=== PATIENT | female | born 2005 | race Caucasian/White ===

== ENCOUNTER 2025-08-12 10:48 | Emergency (ER) | payer OTHER, SELFPAY ==
[2025-08-12 10:51] VITALS: BP 117/80; PULSE 69; PULSE 83; RESP 18; TEMP 36.6; O2SAT 100; BMI 26.7
--- OUTSIDE RECORDS SUMMARY | 2025-08-12 11:40 | XMS RPT_ITS | CCD ---
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 [Mass/Vol] 14.2 g/dL Normal 11.5-15.5 [facility] Comment on above: Order Comment: Speci men Type: BLOOD SPECIMENOrdering Facility: [facility] Address: [address] [place] [address] Performed By: #### 5 8410-2 ####[facility] LABORATORYCLIA [id number] [address] MCH (RBC) [Entitic mass] 28.5 pg Normal 26.0-34.0 [facility] Comment on above: Order Comment: Speci men Type: BLOOD SPECIMENOrdering Facility: [facility] Address: [address] [place] [address] Performed By: #### 5 8410-2 ####[facility] LABORATORYCLIA [id number] [address] MCHC (RBC) [Mass/Vol] 33.3 g/dL Normal 30.5-36.0 [facility] Comment on above: Order Comment: Speci men Type: BLOOD SPECIMENOrdering Facility: [facility] Address: [address] [place] [address] Performed By: #### 5 8410-2 ####[facility] LABORATORYCLIA [id number] [address] MCV (RBC) [Entitic vol] 85.6 fL Normal 80.0-100.0 [facility] Comment on above: Order Comment: Speci men Type: BLOOD SPECIMENOrdering Facility: [facility] Address: [address] [place] [address] Performed By: #### 5 8410-2 ####[facility] LABORATORYCLIA [id number] [address] Nucleated RBC (Bld) [#/Vol] 10*3/uL Normal <0.01 [facility] Comment on above: Order Comment: Speci men Type: BLOOD SPECIMENOrdering Facility: [facility] Address: [address] [place] [address] Performed By: #### 5 8410-2 ####[facility] LABORATORYCLIA [id number] [address] [place] Platelet mean volume (Bld) [Entitic vol] 11.7 fL Normal 9.0-12.7 [facility] Comment on above: Order Comment: Speci men Type: BLOOD SPECIMENOrdering Facility: [facility] Address: [address] [place] [id number] Performed By: #### 5 8410-2 ####[facility] LABORATORYCLIA [id number] [address] [place] Platelets (Bld) [#/Vol] 217 10*3/uL Normal 150-400 [facility] Comment on above: Order Comment: Speci men Type: BLOOD SPECIMENOrdering Facility: [facility] Address: [address] [place] [address] Performed By: #### 5 8410-2 ####[facility] LABORATORYCLIA [id number] [address] [place] RBC (Bld) [#/Vol] 4.99 10*6/uL Normal 3.90-5.20 [facility] Comment on above: Order Comment: Speci men Type: BLOOD SPECIMENOrdering Facility: [facility] Address: [address] [place] [id number] Performed By: #### 5 8410-2 ####[facility] LABORATORYCLIA [id number] [address] WBC (Bld) [#/Vol] 5.28 10*3/uL Normal 3.70-11.00 [facility] Comment on above: Order Comment: Speci men Type: BLOOD SPECIMENOrdering Facility: [facility] Address: [address] [place] [address] Performed By: #### 5 8410-2 ####[facility] LABORATORYCLIA [id number] [address] CNOVon 05-18-2025 CNOV Office Visit (FAMJIMMIE ) ----- EMILY GONSALEZ ([id number]) 5 F Date Time Provider Department 05/18/25 7:40 AM LASHA WITT During your visit today, we recorded the following information about you: Pulse Respiration Blood pressure Weight 58/minute 16/minute 108/70 63.5 kg Height 1.651 m Lasha Witt MD 05/18/2025 8:21 AM Signed ASSESSMENT AND PLAN: Problem List Items Addressed This Visit Psychiatry Anxiety and depression Overview Patient to schedule appointment for CBT. Continue Prozac 10 mg daily. Discussed supportive care including diet, exercise, and sufficient sleep. Relevant Orders COMPLETE BLOOD COUNT COMPREHENSIVE METABOLIC PANEL Other Visit Diagnoses Annual physical exam - Primary Relevant Orders COMPLETE BLOOD COUNT COMPREHENSIVE METABOLIC PANEL LIPID PANEL, FASTING FERRITIN Screening for endocrine, nutritional, metabolic and immunity disorder Relevant Orders COMPLETE BLOOD COUNT COMPREHENSIVE METABOLIC PANEL LIPID PANEL, FASTING FERRITIN Acne vulgaris Relevant Medications clindamycin (CLEOCIN-T) 1 % gel Discussed BP goal <130/80. Encouraged diet rich in vegetables and 150 minutes of moderate intensity activity weekly. Encouraged regular dental visits. Encouraged regular seatbelt use. Encouraged safe sex practices. Reviewed age and season appropriate vaccines. Reviewed cancer screening recommendations. Questions and concerns addressed in office. Medications were reviewed and verified. AVS provided. 05/11/2025 05/18/2025 INTAKE PAIN ASSESSMENT Are you having pain associated with your visit today? No No If pain assessment is 0, no action needed. If pain assessment is positive, please see assessment and plain. FOLLOW UP: Return in about 5 months (around 10/18/2025) for Recheck mental health. SUBJECTIVE: Emily Gonsalez is a 20 year old female presenting in the office today. CC: Patient presents with: Wellness: Pt presents for Annual Wellness Visit , pt is fasting for labs. Diet: generally healthy; eating out 2/week; denies any EtOH use Exercise: training daily (cardiovascular and resistance) Sleep: ~8 hours Dental Exam: biannually Eye Exam: [place] Cancer Screening Breast: NA. Cervical: NA. Colon: NA. Lung: NA. Immunization Influenza: Recommend during respiratory season. Pneumococcal: NA SARS-CoV 2: Recommend during respiratory season. Tdap/Td: Up To Date. HPV: Up To Date. Doing well with fluoxetine. Feeling feelings. Has a support system in mother and team members. PHYSICAL EXAMINATION: BP 108/70 Pulse 58 Resp 16 Ht 5' 5 (1.65m) Wt 140 lb (63.5kg) SpO2 100% BMI 23.30 kg/(m2). Physical Exam Vitals reviewed. Constitutional: Appearance: Normal appearance. HENT: Head: Normocephalic and atraumatic. Right Ear: Tympanic membrane and ear canal normal. Left Ear: Tympanic membrane and ear canal normal. Mouth/Throat: Mouth: Mucous membranes are moist. Pharynx: Oropharynx is clear. Eyes: Extraocular Movements: Extraocular movements intact. Pupils: Pupils are equal, round, and reactive to light. Cardiovascular: Rate and Rhythm: Normal rate. Pulmonary: Effort: Pulmonary effort is normal. Breath sounds: Normal breath sounds. Abdominal: General: Bowel sounds are normal. Palpations: Abdomen is soft. Musculoskeletal: Right lower leg: No edema. Left lower leg: No edema. Skin: Findings: Rash (facial acne) present. Neurological: Mental Status: She is alert and oriented to person, place, and time. Psychiatric: Mood and Affect: Mood normal. Speech: Speech normal. Behavior: Behavior normal. Lasha Witt MD 05/18/2025 8:20 AM Signed MEDITERRANEAN DIET The Mediterranean diet is inspired by foods eaten in countries that border the [place] Sea. This includes [place], [place], [place], and [place]. The Mediterranean diet is similar to other heart-healthy diets. It promotes foods such as fish, fruits, vegetables, beans, and whole grains. It does not include many meats, dairy products, or sweets. In other ways, the Mediterranean diet is different. For example, it allows for more calories from fats, like olive oil. The diet also allows for moderate intake of wine. Path to improved health Studies show that the Mediterranean diet has many health benefits. These are greater when combined with exercise. The diet can help you lose or maintain weight. It also helps to manage your blood pressure, blood sugar, and cholesterol levels. In older adults, it can improve your brain function. Following the Mediterranean diet may also protect against some chronic diseases, such as: -heart disease -cancer -type 2 diabetes -Alzheimer?s disease -Parkinson?s disease You can integrate the Mediterranean diet into your lifestyle. Try some of the tips below. Talk to your doctor or a diet (more content not included)... Normal [facility] Comprehensive metabolic 2000 panelon 05-18-2025 Albumin [Mass/Vol] 4.2 g/dL 3.2 - 5.0 g/dL [facility] ALP [Catalytic activity/Vol] 63 U/L 45 - 117 U/L [facility] ALT [Catalytic activity/Vol] 17 U/L 13 - 61 U/L [facility] Comment on above: Results may be false ly depressed after the administration of Sulfasalazine and/or Sulfapyridine. Anion gap [Moles/Vol] 6 mmol/L 5 - 16 mmol/L [facility] AST [Catalytic activity/Vol] 20 U/L 8 - 34 U/L [facility] Comment on above: Results may be false ly depressed after the administration of Sulfasalazine and/or Sulfapyridine. Bilirubin [Mass/Vol] 0.4 mg/dL 0.2 - 1.0 mg/dL [facility] Calcium [Mass/Vol] 9.2 mg/dL 8.5 - 10. 5 mg/dL [facility] Chloride [Moles/Vol] 106 mmol/L 98 - 107 mmol/L [facility] CO2 [Moles/Vol] 28 mmol/L 21 - 32 mmol/L [facility] Creatinine [Mass/Vol] 0.72 mg/dL 0.51 - 0.95 mg/dL [facility] Comment on above: Patients receiving e ither N-Acetylcysteine (NAC) or Metamizole prior to venipuncture, may have falsely depressed results. GFR/1.73 sq M.predicted among non-blacks MDRD (S/P/Bld) [Vol rate/Area] 123 mL/min/{1.73_m2} - PINF [facility] Comment on above: Estimated Glomerular Filtration Rate (eGFR) is calculated using the 2020 CKD-EPI creatinine equation. This equation utilizes serum creatinine, sex, and age as parameters. The creatinine assay has traceable calibration to isotope dilution-mass spectrometry. Refer to KDIGO guidelines for clinical interpretation. In patients with unstable renal function, e.g. those with acute kidney injury, the eGFR may not accurately reflect actual GFR. Glucose [Mass/Vol] 100 mg/dL 70 - 100 mg/dL [facility] Comment on above: The [place] Diabete s Association (ADA) provides guidance for cutoff values for fasting glucose and random glucose. The ADA defines fasting as no caloric intake for at least 8 hours. Fasting plasma glucose results between 100 to 125 mg/dL indicate increased risk for diabetes (prediabetes). Fasting plasma glucose results greater than or equal to 126 mg/dL meet the criteria for diagnosis of diabetes. In the absence of unequivocal hyperglycemia, results should be confirmed by repeat testing. In a patient with classic symptoms of hyperglycemia or hyperglycemic crisis, random plasma glucose results greater than or equal to 200 mg/dL meet the criteria for diagnosis of diabetes. Reference: Standards of Medical Care in Diabetes 2016, Italian Diabetes Association. Diabetes Care. 2016.39(Suppl 1). Results may be falsely elevated after the administration of Sulfapyridine. Results may be falsely depressed after the administration of Sulfasalazine. Potassium [Moles/Vol] 4.3 mmol/L 3.5 - 5.1 mmol/L [facility] Protein [Mass/Vol] 6.7 g/dL 6.0 - 8.5 g/dL [facility] Sodium [Moles/Vol] 140 mmol/L 136 - 145 mmol/L [facility] Urea nitrogen [Mass/Vol] 10 mg/dL 7 - 26 mg/dL [facility] Albumin [Mass/Vol] 4.2 g/dL Normal 3.2-5.0 [facility] Comment on above: Order Comment: Speci men Type: BLOOD SPECIMENOrdering Facility: [facility] Address: [address] [place] [address] Performed By: #### 2 4323-8, 6-, 13955-0 ####[facility] LABORATORYCLIA [id number] [place] [address] [place] ALP [Catalytic activity/Vol] 63 U/L Normal 45-117 [facility] Comment on above: Order Comment: Speci men Type: BLOOD SPECIMENOrdering Facility: [facility] Address: [address] [place] [address] Performed By: #### 2 4323-8, 2276-4, 13271-5 ####[facility] LABORATORYCLIA [id number] [place] [address] [place] ALT [Catalytic activity/Vol] 17 U/L Normal 13-61 [facility] Comment on above: Order Comment: Specmarianne marie Type: BLOOD SPECIMENOrdering Facility: [facility] Address: [address] [place] [address] Result Comment: Resu lts may be falsely depressed after the administration of Sulfasalazine and/or Sulfapyridine. Performed By: #### 2 4323-8, 2276-4, 76940-9 ####[facility] LABORATORYCLIA [id number] [address] [place] Anion gap [Moles/Vol] 6 mmol/L Normal 5-16 [facility] Comment on above: Order Comment: Markus marie Type: BLOOD SPECIMENOrdering Facility: [facility] Address: [address] [place] [address] Performed By: #### 2 4323-8, 2276-4, 58213-3 ####[facility] LABORATORYCLIA [id number] [address] AST [Catalytic activity/Vol] 20 U/L Normal 8-34 [facility] Comment on above: Order Comment: Markus marie Type: BLOOD SPECIMENOrdering Facility: [facility] Address: [address] [place] [address] Result Comment: Resu lts may be falsely depressed after the administration of Sulfasalazine and/or Sulfapyridine. Performed By: #### 2 4323-8, 2276-4, 32402-0 ####[facility] LABORATORYCLIA [id number] [place] [address] [place] Bilirubin [Mass/Vol] 0.4 mg/dL Normal 0.2-1.0 [facility] Comment on above: Order Comment: Markus marie Type: BLOOD SPECIMENOrdering Facility: [facility] Address: [address] [place] [address] Performed By: #### 2 4323-8, 2276-4, 78654-3 ####[facility] LABORATORYCLIA [id number] [place] [id number] [place] Calcium [Mass/Vol] 9.2 mg/dL Normal 8.5-10.5 [facility] Comment on above: Order Comment: Speci men Type: BLOOD SPECIMENOrdering Facility: [facility] Address: [address] [place] [address] Performed By: #### 2 4323-8, 6-4, 07050-8 ####[facility] LABORATORYCLIA [id number] [place] [address] [place] Chloride [Moles/Vol] 106 mmol/L Normal 98-107 [facility] Comment on above: Order Comment: Speci men Type: BLOOD SPECIMENOrdering Facility: [facility] Address: [address] [place] [address] Performed By: #### 2 4323-8, 2276-01, 19335-7 ####[facility] LABORATORYCLIA [id number] [place] [address] [place] CO2 [Moles/Vol] 28 mmol/L Normal 21-32 [facility] Comment on above: Order Comment: Speci men Type: BLOOD SPECIMENOrdering Facility: [facility] Address: [address] [place] [address] Performed By: #### 2 4323-8, 2276-01, 29355-3 ####[facility] LABORATORYCLIA [id number] [place] [address] [place] Creatinine [Mass/Vol] 0.72 mg/dL Normal 0.51-0.95 [facility] Comment on above: Order Comment: Speci men Type: BLOOD SPECIMENOrdering Facility: [facility] Address: [address] [place] [address] Result Comment: Linda ents receiving either N-Acetylcysteine (NAC) or Metamizole prior to venipuncture, may have falsely depressed results. Performed By: #### 2 4323-8, 2275-4, 13657-4 ####[facility] LABORATORYCLIA [id number] [place] [address] [place] eGFRcr SerPlBld CKD-EPI 2020 123 mL/min/1.73m??? Normal >=60 [facility] Comment on above: Order Comment: Markus marie Type: BLOOD SPECIMENOrdering Facility: [facility] Address: [address] [place] [address] Result Comment: Ivy mated Glomerular Filtration Rate (eGFR) is calculated using the 2020 CKD-EPI creatinine equation. This equation utilizes serum creatinine, sex, and age as parameters. The creatinine assay has traceable calibration to isotope dilution-mass spectrometry. Refer to KDIGO guidelines for clinical interpretation. In patients with unstable renal function, e.g. those with acute kidney injury, the eGFR may not accurately reflect actual GFR. Performed By: #### 2 4323-8, 2276-4, 77926-5 ####[facility] LABORATORYCLIA [id number] [place] [address] [place] Glucose [Mass/Vol] 100 mg/dL Normal 70-100 [facility] Comment on above: Order Comment: Markus marie Type: BLOOD SPECIMENOrdering Facility: [facility] Address: [address] [place] [address] Result Comment: The [place] Diabetes Association (ADA) provides guidance for cutoff values for fasting glucose and random glucose. The ADA defines fasting as no caloric intake for at least 8 hours. Fasting plasma glucose results between 100 to 125 mg/dL indicate increased risk for diabetes (prediabetes). Fasting plasma glucose results greater than or equal to 126 mg/dL meet the criteria for diagnosis of diabetes. In the absence of unequivocal hyperglycemia, results should be confirmed by repeat testing. In a patient with classic symptoms of hyperglycemia or hyperglycemic crisis, random plasma glucose results greater than or equal to 200 mg/dL meet the criteria for diagnosis of diabetes. Reference: Standards of Medical Care in Diabetes 2016, [place] Diabetes Association. Diabetes Care. 2016.39(Suppl 1). Results may be falsely elevated after the administration of Sulfapyridine. Results may be falsely depressed after the administration of Sulfasalazine. Performed By: #### 2 4323-8, 2276-4, 87157-8 ####[facility] LABORATORYCLIA [id number] [place] [id number] [place] Potassium [Moles/Vol] 4.3 mmol/L Normal 3.5-5.1 [facility] Comment on above: Order Comment: Speci men Type: BLOOD SPECIMENOrdering Facility: [facility] Address: [address] [place] [id number] Performed By: #### 2 4323-8, 6-4, 92013-0 ####[facility] LABORATORYCLIA [id number] [place] [id number] [place] Protein [Mass/Vol] 6.7 g/dL Normal 6.0-8.5 [facility] Comment on above: Order Comment: Speci men Type: BLOOD SPECIMENOrdering Facility: [facility] Address: [address] [place] [address] [place] [address] Performed By: #### 2 4323-8, 2275-, 48432-7 ####[facility] LABORATORYCLIA [id number] [place] [address] [place] Sodium [Moles/Vol] 140 mmol/L Normal 136-145 [facility] Comment on above: Order Comment: Speci men Type: BLOOD SPECIMENOrdering Facility: [facility] Address: [facility] [place] [address] Performed By: #### 2 4323-8, 2276-01, 42014-9 ####[facility] LABORATORYCLIA [id number] [place] [address] [place] Urea nitrogen [Mass/Vol] 10 mg/dL Normal 7-26 [facility] Comment on above: Order Comment: Speci men Type: BLOOD SPECIMENOrdering Facility: [facility] Address: [address] [place] [address] [place] [id number] Performed By: #### 2 4323-8, 6-, 94407-9 ####[facility] LABORATORYCLIA [id number] [place] [address] [place] FERRITINon 05-18-2025 Ferritin [Mass/Vol] 21.7 ng/mL 8.0 - 307.0 ng/mL [facility] Ferritin SerPl-mCncon 2024 Ferritin [Mass/Vol] 21.7 ng/mL Normal 8.0-307.0 [facility] Comment on above: Order Comment: Speci men Type: BLOOD SPECIMENOrdering Facility: [facility] Address: [address] [place] [address] Performed By: #### 2 4323-8, 2276-4, 98158-3 ####[facility] LABORATORYCLIA [id number] [place] [address] [place] Lipid 1996 panelon 5 Cholesterol [Mass/Vol] 94 mg/dL 0 - 199 mg/dL [facility] Comment on above: <200 mg/dL, Desirabl e 200-239 mg/dL, Borderline high >239 mg/dL, High Cholesterol in HDL [Mass/Vol] 56 mg/dL 40 - PINF mg/dL [facility] Comment on above: 40-59 mg/dL, Accepta ble >59 mg/dL, High: Negative risk factor for coronary heart disease <40 mg/dL, Low: Positive risk factor for coronary heart disease Cholesterol in LDL [Mass/Vol] 28 mg/dL 0 - 129 mg/dL [facility] Comment on above: <100 mg/dL, Optimal 100-129 mg/dL, Near optimal/above optimal 130-159 mg/dL, Borderline high 160-189 mg/dL, High >189 mg/dL, Very high Secondary prevention optimal LDL Cholesterol levels are recommended to be <70 mg/dL LDL cholesterol is calculated using the Moore-NIH equation. Cholesterol in LDL/Cholesterol in HDL [Mass ratio] 0.5 {ratio} NINF - 2.54 [facility] Comment on above: Reference: 1. National Cholesterol Education Program ATP III Guideline At-A-Glance Quick Desk Reference: National Heart, Lung, and Blood [place]. National Institutes of Health. 2001: NIH Publication No. 01-3305. 2. An International Atherosclerosis Society position paper: global recommendations for the management of dyslipidemia: executive summary, Atherosclerosis. 2014: 232(2):410-413. Cut Points from the Lipid Research Clinic's Prevalence Study for ages 20 to 24 years can be located in the following reference: Expert Panel on Integrated Guidelines for Cardiovascular Health and Risk Reduction in Children and Adolescents: National Heart, Lung and Blood [place]. Pediatrics. 2011:128(Suppl 5):U677-718. Cholesterol in VLDL [Mass/Vol] 4 mg/dL NINF - 30 mg/dL [facility] Cholesterol non HDL [Mass/Vol] 38 mg/dL NINF - 130 mg/dL [facility] Comment on above: <130 mg/dL, Optimal 130-159 mg/dL, Near optimal/above optimal 160-189 mg/dL, Borderline high 190-219 mg/dL, High >219 mg/dL, Very high Secondary prevention optimal non HDL Cholesterol levels are recommended to be <100 mg/dL Cholesterol.total/ Cholesterol in HDL [Mass ratio] 1.68 {ratio} NINF - 5.10 [facility] Fasting Time 12 hrs [facility] Interpretation and review of laboratory results Abnormal [facility] Triglyceride [Mass/Vol] 29 mg/dL Low 30 - 149 mg/dL [facility] Comment on above: <150 mg/dL, Normal 150-199 mg/dL, Borderline high 200-499 mg/dL, High >499 mg/dL, Very high Patients receiving either N-Acetylcysteine (NAC) or Metamizole prior to venipuncture, may have falsely depressed results. Cholesterol [Mass/Vol] 94 mg/dL Normal 0-199 [facility] Comment on above: Order Comment: Speci frank Type: BLOOD SPECIMENOrdering Facility: [facility] Address: [address] [place] [address] Result Comment: <200 mg/dL, Desirable 200-239 mg/dL, Borderline high >239 mg/dL, High Performed By: #### 2 4323-8, 2276-4, 84760-9 ####[facility] LABORATORYCLIA [id number] [address] OF [facility] Cholesterol in HDL [Mass/Vol] 56 mg/dL Normal >40 [facility] Comment on above: Order Comment: Markus marie Type: BLOOD SPECIMENOrdering Facility: [facility] Address: [address] [place] [address] Result Comment: 40-5 9 mg/dL, Acceptable >59 mg/dL, High: Negative risk factor for coronary heart disease <40 mg/dL, Low: Positive risk factor for coronary heart disease Performed By: #### 2 4323-8, 2276-4, 06140-3 ####[facility] LABORATORYCLIA [id number] [place] [id number] [place] Cholesterol in LDL [Mass/Vol] 28 mg/dL Normal 0-129 [facility] Comment on above: Order Comment: Markus frank Type: BLOOD SPECIMENOrdering Facility: [facility] Address: [address] [place] [address] Result Comment: <100 mg/dL, Optimal 100-129 mg/dL, Near optimal/above optimal 130-159 mg/dL, Borderline high 160-189 mg/dL, High >189 mg/dL, Very high Secondary prevention optimal LDL Cholesterol levels are recommended to be <70 mg/dL LDL cholesterol is calculated using the Moore-NIH equation. Performed By: #### 2 4323-8, 2276-4, 81079-9 ####[facility] LABORATORYCLIA [id number] [place] [id number] [place] Cholesterol in LDL/Cholesterol in HDL [Mass ratio] 0.50 {ratio} Normal <2.54 [facility] Comment on above: Order Comment: Speci frank Type: BLOOD SPECIMENOrdering Facility: [facility] Address: [address] [place] [address] Result Comment: Triston villegas: 1. National Cholesterol Education Program ATP III Guideline At-A-Glance Quick Desk Reference: National Heart, Lung, and Blood [place]. National Institutes of Health. 2001: NIH Publication No. 01-3305. 2. An International Atherosclerosis Society position paper: global recommendations for the management of dyslipidemia: executive summary, Atherosclerosis. 2014: 232(2):410-413. Cut Points from the Lipid Research Clinic's Prevalence Study for ages 20 to 24 years can be located in the following reference: Expert Panel on Integrated Guidelines for Cardiovascular Health and Risk Reduction in Children and Adolescents: National Heart, Lung and Blood [place]. Pediatrics. 2011:128(Suppl 5):G149-136. Performed By: #### 2 4323-8, 2276-4, 53874-3 ####[facility] LABORATORYCLIA [id number] [place] [id number] [place] Cholesterol in VLDL [Mass/Vol] 4 mg/dL Normal <30 [facility] Comment on above: Order Comment: Speci men Type: BLOOD SPECIMENOrdering Facility: [facility] Address: [address] [place] [address] Performed By: #### 2 4323-8, 2276-01, 84009-5 ####[facility] LABORATORYCLIA [id number] [address] OF [place] Cholesterol non HDL [Mass/Vol] 38 mg/dL Normal <130 [facility] Comment on above: Order Comment: Speci men Type: BLOOD SPECIMENOrdering Facility: [facility] Address: [address] [place] [address] Result Comment: <130 mg/dL, Optimal 130-159 mg/dL, Near optimal/above optimal 160-189 mg/dL, Borderline high 190-219 mg/dL, High >219 mg/dL, Very high Secondary prevention optimal non HDL Cholesterol levels are recommended to be <100 mg/dL Performed By: #### 2 4323-8, 2276-01, 43835-6 ####[facility] LABORATORYCLIA [id number] [address] Cholesterol.total/ Cholesterol in HDL [Mass ratio] 1.68 {ratio} Normal <5.10 [facility] Comment on above: Order Comment: Speci men Type: BLOOD SPECIMENOrdering Facility: [facility] Address: [address] [place] [address] Performed By: #### 2 4323-8, 2276-01, 69270-1 ####[facility] LABORATORYCLIA [id number] [address] OF [place] FASTING TIME 12 hrs Normal [facility] Comment on above: Order Comment: Speci men Type: BLOOD SPECIMENOrdering Facility: [facility] Address: [address] [place] [address] Performed By: #### 2 4323-8, 2276-01, 47403-2 ####[facility] LABORATORYCLIA [id number] [place] [id number] [place] Triglyceride [Mass/Vol] 29 mg/dL Low 30-149 [facility] Comment on above: Order Comment: Speci men Type: BLOOD SPECIMENOrdering Facility: [facility] Address: [address], [place] [address] Result Comment: <150 mg/dL, Normal 150-199 mg/dL, Borderline high 200-499 mg/dL, High >499 mg/dL, Very high Patients receiving either N-Acetylcysteine (NAC) or Metamizole prior to venipuncture, may have falsely depressed results. Performed By: #### 2 4323-8, 2276-4, 23341-3 ####[facility] LABORATORYCLIA [id number] [address] [place] No Panel Informationon 05-18 Interpretation and review of laboratory results Normal [facility] CNOVon 03-02-2025 CNOV Office Visit (FAMLAK ) ----- EMILY GONSALEZ ([id number]) 5 F Date Time Provider Department 03/02/25 9:20 AM LASHA WITT During your visit today, we recorded the following information about you: Pulse Respiration Blood pressure Weight 68/minute 18/minute 108/70 65.8 kg Lasha Witt MD 03/02/2025 10:01 AM Signed ASSESSMENT AND PLAN: Problem List Items Addressed This Visit Psychiatry Anxiety and depression - Primary Overview Patient to schedule appointment for CBT. Continue Prozac 10 mg daily. Discussed supportive care including diet, exercise, and sufficient sleep. Relevant Medications FLUoxetine (PROZAC) 10 mg capsule Questions and concerns addressed in office. AVS provided. FOLLOW UP: Return in about 8 weeks (around 04/27/2025) for Annual Physical. SUBJECTIVE: Emily Aníbal Elvis is a 20 year old female presenting in the office today. CC: Patient presents with: Depression Anxiety: Pt presents for 3 Month F/U on Anxiety and Depression. Medications were reviewed and verified. 02/23/2025 03/02/2025 INTAKE PAIN ASSESSMENT Are you having pain associated with your visit today? No No If pain assessment is 0, no action needed. If pain assessment is positive, please see assessment and plain. HPI: White female with CMHx of anxiety and depression presents for follow up. Finished the spring and taking one class in the evening. Exercising daily, lifting and running. Sleeping well; getting 8-9 hours of sleep. Appreciating benefit from Prozac. If she forgets medication for multiple days, appreciates feeling bummed and down. Headaches have improved. Denies any recent head injuries. 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 PHYSICAL EXAMINATION: BP 108/70 Pulse 68 Resp 18 Wt 145 lb (65.8kg) SpO2 98% Physical Exam Vitals reviewed. Constitutional: Appearance: Normal appearance. HENT: Head: Normocephalic and atraumatic. Cardiovascular: Rate and Rhythm: Normal rate. Pulmonary: Effort: Pulmonary effort is normal. Breath sounds: Normal breath sounds. Neurological: Mental Status: She is alert. Psychiatric: Mood and Affect: Mood normal. Speech: Speech normal. Behavior: Behavior normal. Allergies As of Date: 03/02/2025 (No Known Allergies) Date Reviewed: 03/02/2025 Reviewed by: Lindsay Mills LPN - Fully Assessed Reason for Visit: Depression [32] Anxiety [9] Cmt: Pt presents for 3 Month F/U on Anxiety and Depression. Primary Visit Diagnosis:Anxiety and depression [F41.9, F32.A] Order(s):FLUoxetine (PROZAC) 10 mg capsuleTake 1 capsule by mouth daily with breakfast.Disp: 90 capsuleRfl: 1 Prescriptions as of 03/02/2025 - FLUoxetine (PROZAC) 10 mg capsule Take 1 capsule by mouth daily with breakfast. - etonogestrel (NEXPLANON) subdermal implant 68 mg Inject 68 mg subcutaneously one time only. Problem List As Of Date 03/02/[address]on in [address] [Z97.5] 04/12/2024 Anxiety and depression [F41.9, F32.A] 09/20/2024 Post-concussion headache [G44.309] 10/16/2024 Dizziness [R42] 10/16/2024 Prescriptions ordered this encounter Disp Refills Start End FLUOXETINE 10 MG CAPSULE 90 c* 1 03/02/2025 Route: ORAL Sig: Take 1 capsule by mouth daily with breakfast. Medications Discontinued During This Encounter Prescriptions - amantadine HCl (SYMMETREL) 100 mg capsule (Discontinued) Reported on 03/02/2025 - rizatriptan (MAXALT) 10 mg tablet (Discontinued) Reported on 03/02/2025 - FLUoxetine (PROZAC) 10 mg capsule (Discontinued) Take 1 capsule by mouth daily with breakfast. Level of Service: OFFICE/OUTPATIENT ESTABLISHED LOW MDM 20 MIN [57366] Disposition: Return in about 8 weeks (around 04/27/2025) for Annual Physical. Follow-up and Disposition History for Encounter Date Provider Department Center 03/02/2025 [id number], LILLY [facility] Encounter Status:Closed by LASHA WITT on 03/02/25 [facility] Progress Noteon 03-02-2025 [employer] Authentication Interface Message Text Emily Gonsalez is a 20 y.o. female patient. Nexplanon Removal w/Insertion Performed by: Jaziel Conway APRN-CNP Authorized by: Jaziel Conway APRN-CNP These two point patient identifiers, Patient Name and Patient Birthday were used to identify the patient prior to obtaining consent and beginning the procedure.Consent was discussed and obtained from Patient. Nexplanon is present in patient's left arm. The patient was supine on the exam table with the left arm externally rotated, abducted to 90 degrees, and flexed at the elbow. Nexplanon was palpated and the distal end was marked with a skin marker. 3ml of 1% lidocaine just deep to the implant at the incision site. Proximal pressure was applied to the implant for stabilization. A 2mm incision was made starting at the distal tip and directed toward the elbow. The tip of the implant was visible at the incision site The encapsulating tissue was incised. The area was cleaned, a steri-strip placed, and a pressure dressing applied. For Reinsertion into the same arm/same location: The transparent cap was removed from the insertion device and the white implant was seen inside the needle. The skin at the insertion site was stretched laterally with the thumb and the index finger. The needle was introduced into the skin at a 30 degree angle, through the same incision used for removal, and then lowered to a horizontal position. With the skin tented, the needle was inserted to its full length. The purple slider was unlocked and moved backward until it stopped. The insertion device was removed. Nexplanon was palpated by the patient and provider after insertion. The area was cleaned, a steri-strip placed, and a pressure dressing applied. Patient's response to procedure: well tolerated. Comments: Removed with fingertips Electronically signed by: Jaziel Conway APRN-ANTHONY [facility] ED Note-Physicianon 01-02-20 ED Note-Physician I received a phone c all from Marika Gonsalez, who identified herself as a certified nurse practitioner and stated she is the primary care provider for Emily Gonsalez. She requested medical records for recent visits during which the patient was seen. It was noted that Marika and Emily Gonsalez share the same last name, suggesting a potential family relation. Marika explained that Emily had told her that the ER was experiencing downtime during her visit, and she had been informed she would be contacted with results. However, she had not received any notification and, when Emily called earlier, was told she would need to speak with medical records. Marika requested the patient's chart information. Given that Emily is an adult and shares the same last name as Marika, I asked if I could speak with either the patient or a parent to confirm that Marika was authorized to receive the information. Marika clarified that she was not Emily's primary care provider but worked in the same field?family practice. She does not work at the same office as Emily?s primary care provider. I requested that Emily contact me directly so I could release the information to her. Marika agreed to reach out to the patient. Later, Emily contacted me and was able to provide her date of , visit details, and the complaint for which she was seen. She confirmed the healthcare provider was a female nurse practitioner, which was verified by reviewing the chart. At that point, I was able to release the requested information to Emily. All questions were answered Electronically signed by Nba WRIGHT Kaleb MCNULTY 01/01/25 12:43 EDT Normal [facility] COV19 Rapidon 12-31-2024 LAB ONLY Result Called? No Normal [facility] Comment on above: Performed By: #### C [id number] ####[facility] [place] [address] Reason for Rapid Test COVID Exposure Normal [facility] Comment on above: Performed By: #### C [id number] ####[place] [address] [place] [address] SARS-CoV-2 (COVID-19) RNA ISIDRA+probe Ql (Unsp spec) Negative Normal Negative [facility] Comment on above: Result Comment: This test is for the detection of SARS-CoV-2 RNA. Positive results are indicative of active infection with SARS-CoV-2. Positive results do not rule out bacterial infection or co-infection with other viruses. Negative results should be treated as presumptive and, if inconsistent with clinical signs and symptoms or necessary for patient management, should be tested with an alternative molecular assay.Negative results do not preclude SARS-CoV-2 infection and should not be used as the sole basis for treatment or other patient management decisions. Clinical correlation with patient history and other diagnostic information is necessary to determine patient infection status. ID NOW COVID-19 2.0 assay performed on the ID NOW Instrument is a rapid molecular in vitro diagnostic test utilizing an isothermal nucleic acid amplification technology (NAAT) intended for the qualitative detection of nucleic acid from SARS-CoV-2 in direct anterior nasal (nasal) or nasopharyngeal swab specimens from individuals with signs and symptoms of respiratory tract infection. Performed By: #### C D:[id number] ####[place] [place] [address] ED Clinical Summaryon 2024 ED Clinical Summary [address] [address] ED Clinical Summary Person Information Name: Emily Gonsalez [place] Age: 19 Years : 2005 Sex: Female PCP: Marital Status: Single Phone: Race: White Ethnicity: Not or Language: Bulgarian Visit Reason: Headache; Nausea; Nausea Acuity: 3 Enc Type: Emergency Med Service: Emergency Medicine Arrival: 12/30/2024 19:55:41 Discharge: 12/31/2024 07:10:00 LOS: 000 11:15 Checkin: 12/30/2024 19:55:41 Checkout: 12/31/2024 07:10:00 Dispo Type: Home or Self Care Address: [address] [place] [id number] Provider Notes: Diagnosis: 1:Concussion; 2:Post-concussion headache Problems No Problems Documented Smoking Status: Smoking Status Never (less than 100 in lifetime) Functional Status: Sensory Deficits: History of Falls: Mobility Assistance Prior to Admission: ADLs: Current Level of Assistance for Self-Care/Mobility: Cognitive Status: Allergies No Known Medication Allergies Laboratory or Other Results This Visit (last charted value for your 12/30/2024 visit) Hematology 12/30/2024 9:28 PM WBC: 12.6 x10 RBC: 4.88 x10 Neutro Auto: 74.2 % -- Normal range between ( 45.6 and 68.4 ) Lymph Auto: 14.3 % -- Normal range between ( 28.0 and 42.0 ) [place] Auto: 11.1 % -- Normal range between ( 3.7 and 11.9 ) Eos Auto: 0.2 % -- Normal range between ( 0.0 and 5.4 ) Basophil Auto: 0.2 % -- Normal range between ( 0.0 and 1.5 ) Baso Absolute: 0.0 x10 MCV: 84.1 fL -- Normal range between ( 80.0 and 100.0 ) MCHC: 33.6 % -- Normal range between ( 31.0 and 37.0 ) Lymph Absolute: 1.8 x10 Hct: 41.1 % -- Normal range between ( 36.0 and 46.0 ) [place] Absolute: 1.4 x10 MCH: 28.2 pg -- Normal range between ( 27.0 and 35.0 ) Neutro Absolute: 9.3 x10 Hgb: 13.8 g/dL -- Normal range between ( 12.0 and 16.0 ) Mean Platelet Volume: 10.1 fL -- Normal range between ( 6.7 and 10.6 ) Platelet: 210 x10 Eos Absolute: 0.0 x10 RDW: 12.9 % -- Normal range between ( 11.6 and 14.8 ) Urinalysis 12/30/2024 9:28 PM UA Color: Light-Yellow UA Urobilinogen: Normal mg/dL UA Bili: Negative UA Ketones: Negative mg/dL UA Leukocyte Esterase: Negative UA Nitrite: Negative UA Glucose: Normal mg/dL UA Bacteria: Present /HPF UA Protein: Negative mg/dL UA Blood: Trace UA Spec Grav: 1.019 -- Normal range between ( 1.003 and 1.035 ) UA pH: 7.0 UA Clarity: Clear UA Source: Clean Catch UA Mucus: Present /LPF UA WBC Quant: 1 /HPF -- Normal range between ( 0 and 5 ) UA RBC Quant: 4 /HPF -- Normal range between ( 0 and 5 ) UA Squepi Cells Quant: 1 /HPF -- Normal range between ( 0 and 29 ) Chemistry 12/30/2024 9:28 PM Creatinine Lvl: 0.68 mg/dL -- Normal range between ( 0.44 and 1.03 ) BUN: 8 mg/dL -- Normal range between ( 8 and 26 ) Glucose Lvl: 101 mg/dL -- Normal range between ( 70 and 99 ) Potassium Lvl: 3.5 mmol/L -- Normal range between ( 3.4 and 4.8 ) Sodium Lvl: 134 mmol/L -- Normal range between ( 133 and 142 ) Calcium Lvl: 9.0 mg/dL -- Normal range between ( 8.5 and 10.3 ) Chloride: 105 mmol/L -- Normal range between ( 98 and 110 ) CO2: 24 mmol/L -- Normal range between ( 22 and 32 ) Anion Gap: 5 -- Normal range between ( 4 and 12 ) Estimated GFR: >60 mL/min/1.73m? BUN Crea Ratio: 11.8 -- Normal range between ( 10.0 and 20.0 ) Urine Preg: Negative Molecular 12/30/2024 9:28 PM SARS-CoV-2 RNA Detection: Negative Flu A Viral RNA: Negative Flu B Viral RNA: Negative Measurements: Height: Weight: 65.9 kg Blood Pressure: /81 mmHg BMI: Procedures No Procedures Documented Immunizations No Immunizations Documented This Visit Final Med List: Medications that have not changed Other Medications FLUoxetine (FLUoxetine 10 mg oral capsule) 1 Capsules Oral (given by mouth) every day. Last Dose: Other Medications FLUoxetine (FLUoxetine 10 mg oral capsule) 1 Capsules Oral (given by mouth) every day. Care Team Members: Attending Physician: Karoline Singh Consulting Physician: Referring Physician: Provider Role Assigned Unassigned Karoline Singh ED MidLevel 12/30/2024 21:13:24 Genesis Hanson ED Nurse 12/30/2024 21:46:09 Follow up: Discharge Orders: Discharge Patient 12/31/24 3:43:00 EDT, Discharge to Home, Self Patient Education Information: [facility] Poison Help line: . [facility] Hotline: [place] Tobacco Quit Line: [place], [place]) [address]: [phone] [place], [place]) [address]: [phone] [facility] [address] [place], [place]: [phone] Normal [facility] Flu A/B RNA Rapidon 01-01-20 Flu A Viral RNA Negative Normal Negative [facility] Comment on above: Performed By: #### C [id number] ####[address] [address] Flu B Viral RNA Negative Normal Negative [facility] Comment on above: Performed By: #### C [id number] ####[address] [address] .UA Microscp Aon 12-30-2024 UA Bacteria Present Abnormal Absent [facility] Comment on above: Performed By: #### . Urinalysis Microscopic Auto ####[address] [address] UA Mucus Present Normal Absent [facility] Comment on above: Performed By: #### . Urinalysis Microscopic Auto ####[address] [place] [address] UA RBC Quant 4 /HPF Normal 0-5 [facility] Comment on above: Performed By: #### . Urinalysis Microscopic Auto ####[address] [place] [address] UA Squepi Cells Quant 1 /HPF Normal 0-29 [facility] Comment on above: Performed By: #### . Urinalysis Microscopic Auto ####[address] [place] [address] UA WBC Quant 1 /HPF Normal 0-5 [facility] Comment on above: Performed By: #### . Urinalysis Microscopic Auto ####[address] [address] .eGFRon 12-30-2024 GFR/1.73 sq M.predicted MDRD (S/P/Bld) [Vol rate/Area] mL/min/{1.73_m2} Normal >=60 [facility] Comment on above: Result Comment: [facility] have implemented the eGFR calculation approach that does not have a coefficient for race and that conforms to the NKF-ASN Task Force Recommendations. Stages of Chronic Kidney Disease GFR Stage 3a Mild to moderate loss of kidney function 59 to 45 Stage 3b Moderate to severe loss of kidney function 44 to 33 Stage 4 Severe loss of kidney function 29 to 15 Stage 5 Kidney failure Less than 15 GFR calculated using the CKD-Epi Creatinine Equation (2020): eGFR = 142 X min(SCr/?, 1)? X max(SCr /?, 1)-1.200 X 0.9938Age X 1.012 [if female] Abbreviations/Units: eGFR (estimated glomerular filtration rate) = mL/min/1.73 m2 SCr (standardized serum creatinine) = mg/dL ? = 0.7 (females) or 0.9 (males) ? = -0.241 (females) or -0.302 (males) min = indicates the minimum of SCr/? or 1 max = indicates the maximum of SCr/? or 1 Age = years Performed By: #### E GFR ####[address] [address] Basic Metabolic Profileon Anion gap [Moles/Vol] 5 mmol/L Normal 4-12 [facility] Comment on above: Performed By: #### C [id number] ####[address] [address] Calcium [Mass/Vol] 9.0 mg/dL Normal 8.5-10.3 [facility] Comment on above: Performed By: #### C [id number] ####[address] [address] Chloride [Moles/Vol] 105 mmol/L Normal 98-110 [facility] Comment on above: Performed By: #### C [id number] ####[address] [address] CO2 [Moles/Vol] 24 mmol/L Normal 22-32 [facility] Comment on above: Performed By: #### C [id number] ####[address] [address] Creatinine [Mass/Vol] 0.68 mg/dL Normal 0.44-1.03 [facility] Comment on above: Performed By: #### C [id number] ####[address] [address] Glucose [Mass/Vol] 101 mg/dL High 70-99 [facility] Comment on above: Performed By: #### C [id number] ####[address] [address] Potassium [Moles/Vol] 3.5 mmol/L Normal 3.4-4.8 [facility] Comment on above: Performed By: #### C [id number] ####[address] [address] Sodium [Moles/Vol] 134 mmol/L Normal 133-142 [facility] Comment on above: Performed By: #### C [id number] ####[address] [address] Urea nitrogen [Mass/Vol] 8 mg/dL Normal 8-26 [facility] Comment on above: Performed By: #### C [id number] ####[address] [address] Urea nitrogen/Creatinin e [Mass ratio] 11.8 mg/mg Normal 10.0-20.0 [facility] Comment on above: Performed By: #### C [id number] ####[address] [address] CBC w/ Diffon 12-30-2024 Erythrocyte distribution width (RBC) [Ratio] 12.9 % Normal 11.6-14.8 [facility] Comment on above: Performed By: #### C BC ####[address] [address] Hematocrit (Bld) [Volume fraction] 41.1 % Normal 36.0-46.0 [facility] Comment on above: Performed By: #### C BC ####[address] [address] Hemoglobin (Bld) [Mass/Vol] 13.8 g/dL Normal 12.0-16.0 [facility] Comment on above: Performed By: #### C BC ####[address] [address] MCH (RBC) [Entitic mass] 28.2 pg Normal 27.0-35.0 [facility] Comment on above: Performed By: #### C BC ####[address] [address] MCHC 33.6 % Normal 31.0-37.0 [facility] Comment on above: Performed By: #### C BC ####[address] [address] MCV (RBC) [Entitic vol] 84.1 fL Normal 80.0-100.0 [facility] Comment on above: Performed By: #### C BC ####[address] [address] Platelet 210 x10*3/mcL Normal 150-450 [facility] Comment on above: Performed By: #### C BC ####[address] [address] Platelet mean volume (Bld) [Entitic vol] 10.1 fL Normal 6.7-10.6 [facility] Comment on above: Performed By: #### C BC ####[address] [address] RBC 4.88 x10*6/mcL Normal 3.80-5.20 [facility] Comment on above: Performed By: #### C BC ####[address] [address] WBC 12.6 x10*3/mcL High 4.5-11.0 [facility] Comment on above: Performed By: #### C BC ####[address] [address] [address] Brain w/o Contraston 03-0 CT Brain w/o Contrast EXAMINATION: CT Brain w/o Contrast, CT Facial Bones w/o Contrast HISTORY: Dizziness, COMPARISON: None. TECHNIQUE: Axial CT scans through the head cervical spine and facial bones were obtained without IV contrast administration. Dose reduction techniques were achieved by using: automated exposure control and/or adjustment of mA and /or kV according to patient size and/or use of iterative reconstruction technique. FINDINGS: CT BRAIN There is no evidence of acute intracranial hemorrhage or abnormal extra-axial fluid collection. No mass effect or midline shift is seen. There is no evidence of large acute territorial infarction. There is no hydrocephalus. No definite acute fracture is identified. Soft tissues are unremarkable. CT FACIAL No acute fracture or posttraumatic malalignment. The globes are intact bilaterally. There is no retrobulbar hematoma. The soft tissues are unremarkable. There is near complete opacification of left sphenoid sinus with mucosal thickening and air-fluid level. There are also mucosal thickening of right sphenoid sinus and left ethmoid air cells. Mastoid air cells are clear. IMPRESSION: No CT evidence of acute intracranial abnormality. No acute fracture. Incidental paranasal sinus disease. Recommend clinical correlation for acute sinusitis. Final Dictated by: Yohana Abernathy MD Dictated DT/TM: 12.30.2024 10:53 pm Signed by: Yohana Abernathy MD Signed (Electronic Signature): 12.30.2024 10:59 pm (If Report Is Signed, Electronically Signed in Other Vendor System) Normal [facility] CT Facial Bones w/o Contrast on 12-30-2024 CT Facial Bones w/o Contrast EXAMINATION: CT Brain w/o Contrast, CT Facial Bones w/o Contrast HISTORY: Dizziness, COMPARISON: None. TECHNIQUE: Axial CT scans through the head cervical spine and facial bones were obtained without IV contrast administration. Dose reduction techniques were achieved by using: automated exposure control and/or adjustment of mA and /or kV according to patient size and/or use of iterative reconstruction technique. FINDINGS: CT BRAIN There is no evidence of acute intracranial hemorrhage or abnormal extra-axial fluid collection. No mass effect or midline shift is seen. There is no evidence of large acute territorial infarction. There is no hydrocephalus. No definite acute fracture is identified. Soft tissues are unremarkable. CT FACIAL No acute fracture or posttraumatic malalignment. The globes are intact bilaterally. There is no retrobulbar hematoma. The soft tissues are unremarkable. There is near complete opacification of left sphenoid sinus with mucosal thickening and air-fluid level. There are also mucosal thickening of right sphenoid sinus and left ethmoid air cells. Mastoid air cells are clear. IMPRESSION: No CT evidence of acute intracranial abnormality. No acute fracture. Incidental paranasal sinus disease. Recommend clinical correlation for acute sinusitis. Radiation Dose Estimate: CTDI(mGy):0.352521 / / / kVp:120.574198 / mAs:0.612940 / / / DLP(mGy-cm):5.105501Ucaw Part: Head CTDI(mGy):42.704636 / / / kVp:120.271009 / mAs:171.756982 / / / DLP(mGy-cm):673.962956Kzp y Part: Head CTDI(mGy):18.557783 / / / kVp:120.137032 / mAs:91.683275 / / / DLP(mGy-cm):283.886155Txw y Part: Head Final Dictated by: Yohana Abernathy MD Dictated DT/TM: 12.30.2024 10:53 pm Signed by: Yohana Abernathy MD Signed (Electronic Signature): 12.30.2024 10:59 pm (If Report Is Signed, Electronically Signed in Other Vendor System) Normal [facility] Diff Autoon 12-30-2024 Baso Absolute 0.0 x10*3/mcL Normal 0.0-0.2 [facility] Comment on above: Performed By: #### . Automated Diff ####[address] [address] Basophils/100 WBC (Bld) 0.2 % Normal 0.0-1.5 [facility] Comment on above: Performed By: #### . Automated Diff ####[address] [address] Eos Absolute 0.0 x10*3/mcL Normal 0.0-0.4 [facility] Comment on above: Performed By: #### . Automated Diff ####[address] [address] Eosinophils/100 WBC (Bld) 0.2 % Normal 0.0-5.4 [facility] Comment on above: Performed By: #### . Automated Diff ####[address] [address] Lymph Absolute 1.8 x10*3/mcL Normal 1.2-5.2 [facility] Comment on above: Performed By: #### . Automated Diff ####[address] [address] Lymphocytes/100 WBC (Bld) 14.3 % Low 28.0-42.0 [facility] Comment on above: Performed By: #### . Automated Diff ####[address] [address] [place] Absolute 1.4 x10*3/mcL High 0.1-1.1 [facility] Comment on above: Performed By: #### . Automated Diff ####[address] [address] Monocytes/100 WBC (Bld) 11.1 % Normal 3.7-11.9 [facility] Comment on above: Performed By: #### . Automated Diff ####[address] [address] Neutro Absolute 9.3 x10*3/mcL High 1.8-8.0 [facility] Comment on above: Performed By: #### . Automated Diff ####[address] Neutro Auto 74.2 % High 45.6-68.4 [facility] Comment on above: Performed By: #### . Automated Diff ####[address] ED Note-Physicianon 12-31-19 ED Note-Physician Chief Complaint Patient to ED for increased nausea, and headache. States while playing lacross last week she was hit in the head by another player. History of Present Illness Patient is an alert, oriented 19-year-old female presenting to the emergency department with complaints of headache and nausea. This has been persistent and has progressively increased over the past week. Patient was playing lacrosse last week when she was hit in the head by another player. Patient reports that she is also taking blows to the side of her face. On evaluation PERRLA noted. EOM's grossly intact however she does get increased nausea and dizziness with the movement of her eyes. There is swelling noticed to the left lower jawline, tenderness to palpation to this area. Patient is unable to open jaw very wide. Heart sounds are S1-S2. Lung sounds are clear throughout. She does report that she is followed up with the concussion clinic. Patient has photophobia and phonophobia. I did discuss swabs for flu and COVID, basic labs, saline bolus, and CT scan of the brain and facial bones. Patient is very agreeable with this plan of care. Plan to start patient with dexamethasone, acetaminophen, Zofran, and Benadryl all IV. All orders placed accordingly. Review of Systems As reviewed in the HPI. All other systems reviewed are negative or normal. Physical Exam As dictated in HPI. If not mentioned it is presumed within normal limits. Vitals & Measurements T: 37.7 ?C (Oral) HR: 109 (Peripheral) RR: 18 BP: 134/81 SpO2: 97% HT: 165.1 cm WT: 65.9 kg (Dosing) Additional Vitals No qualifying data available. Procedure No qualifying data available. ASA Documentation Medical Decision Making MEDICAL DECISION MAKING Number and Complexity of Problems Differential Diagnosis: _Including but not limited to concussion, headache, dizziness, nausea, intracranial bleed, jaw fracture Treatment and Disposition ED Course: _ Patient is an alert, oriented 19-year-old female presenting to the emergency department with complaints of headache and nausea. This has been persistent and has progressively increased over the past week. Patient was playing lacrosse last week when she was hit in the head by another player. Patient reports that she is also taking blows to the side of her face. On evaluation PERRLA noted. EOM's grossly intact however she does get increased nausea and dizziness with the movement of her eyes. There is swelling noticed to the left lower jawline, tenderness to palpation to this area. Patient is unable to open jaw very wide. Heart sounds are S1-S2. Lung sounds are clear throughout. She does report that she is followed up with the concussion clinic. Patient has photophobia and phonophobia. I did discuss swabs for flu and COVID, basic labs, saline bolus, and CT scan of the brain and facial bones. Patient is very agreeable with this plan of care. Plan to start patient with dexamethasone, acetaminophen, Zofran, and Benadryl all IV. All orders placed accordingly. Due to downtime, I am unable to review the CT scans. I was able to see scans prior to system going down did not note any obvious abnormalities, bleed, skull fractures, or shifts. I did discuss all of this with patient and patient's visitors. I did explain to them that I am unsure when things will be back up and running however with her feeling better I am okay with discharge home and if there is any abnormalities we will call with those results. I did explain that typically no news is good news. Patient reports symptoms have improved since medications. I recommended continuing follow-up with concussion clinic and avoiding high contact sports and activities until cleared by the concussion clinic. Patient verbalized understanding and is agreeable. Patient was provided with handwritten instructions along with a prescription for Zofran that can be used up to 3 times a day as needed. Patient verbalized understanding had no further questions or concerns. All were agreeable with this plan of care. Shared decision making: _The results of pertinent diagnostic studies and exam findings were discussed. The patient's provisional diagnosis and plan of care were discussed with the patient and present family. The patient and/or present family expressed understanding of the diagnosis and plan. The nurse was instructed to provide written instructions and appropriate follow-up information. The patient understands their need and responsibility to obtain additional follow-up as instructed. The risks of medications administered and prescribed were discussed with the patient and family present. Code status: _Full code Assessment/Plan 1. Concussion 2. Post-concussion headache Refresh vitals and sections below: Problem List/Past Medical History Ongoing No qualifying data Historical No qualifying data Medications Inpatient acetaminophen, 1000 mg= 100 mL, IV Piggyback, Once Benadryl, 50 mg= 1 mL, IV Push, Once dexamethasone, 10 mg= 1 mL, IV P (more content not included)... Normal [facility] UA w Culture if Indon 2024 Color (U) Light-Yellow Normal Yellow [facility] Comment on above: Performed By: #### U CI ####[address] [address] Ketones Ql (U) Negative Normal Negative [facility] Comment on above: Performed By: #### U CI ####[address] [address] UA Blood Trace Abnormal Negative [facility] Comment on above: Performed By: #### U CI ####[address] [address] UA Clarity Clear Normal Clear [facility] Comment on above: Performed By: #### U CI ####[address] [address] UA Glucose Normal Normal Negative [facility] Comment on above: Performed By: #### U CI ####[place] [address] UA Leukocyte Esterase Negative Normal Negative [facility] Comment on above: Performed By: #### U CI ####[place] [address] UA Nitrite Negative Normal Negative [facility] Comment on above: Performed By: #### U CI ####[place] [address] UA pH 7.0 Normal 4.5 - 7.8 [facility] Comment on above: Performed By: #### U CI ####[place] [address] UA Protein Negative Normal Negative [facility] Comment on above: Performed By: #### U CI ####[place] [address] UA Source Clean Catch Normal [facility] Comment on above: Performed By: #### U CI ####[place] [address] UA Spec Grav 1.019 Normal 1.003-1.035 [facility] Comment on above: Performed By: #### U CI ####[place] [address] UA Urobilinogen Normal Normal 0.2 - 1.0 [facility] Comment on above: Performed By: #### U CI ####[place] [address] Urobilinogen (U) [Mass/Vol] Negative Normal Negative [facility] Comment on above: Performed By: #### U CI ####[place] [address] CNTHERAPYon 11-01-2024 CNTHERAPY OT/PT/Speech Visit (PNORCA) ----- EMILY GONSALEZ ([id number]) 5 F Date Time Provider Department 11/01/24 7:15 AM JUDAH CLAY Date Time Provider Department Center 11/01/2024 7:15 AM [id number] Reason for Visit: Physical Therapy [503] PT Discharge [752] Primary Visit Diagnosis:Dizziness [R42] Other Visit Diagnosis:Post-concussion headache [G44.309] Allergies As of Date: 11/01/2024 (No Known Allergies) Date Reviewed: 10/11/2024 Reviewed by: Lindsay Mills LPN - Fully Assessed Prescriptions as of 03/22/2025 - FLUoxetine (PROZAC) 10 mg capsule Take 1 capsule by mouth daily with breakfast. - etonogestrel (NEXPLANON) subdermal implant 68 mg Inject 68 mg subcutaneously one time only. [facility] CNTHERAPYon 10-17-2024 CNTHERAPY OT/PT/Speech Visit (PNORCA) ----- EMILY GONSALEZ ([id number]) 5 F Date Time Provider Department 10/17/24 7:15 AM JUDAH CLAY Date Time Provider Department Center 10/17/2024 7:15 AM [id number] Reason for Visit: Physical Therapy [503] Primary Visit Diagnosis:Dizziness [R42] Other Visit Diagnosis:Post-concussion headache [G44.309] Allergies As of Date: 10/17/2024 (No Known Allergies) Date Reviewed: 10/11/2024 Reviewed by: Lindsay Mills LPN - Fully Assessed Prescriptions as of 10/17/2024 - amantadine HCl (SYMMETREL) 100 mg capsule Take 100 mg by mouth two times a day. - rizatriptan (MAXALT) 10 mg tablet Take 1 tablet (10 mg) by mouth as directed. at onset of headache. May repeat after 2 hours. Do not exceed 30 mg per day. - FLUoxetine (PROZAC) 10 mg capsule Take 1 capsule by mouth daily with breakfast. - etonogestrel (NEXPLANON) subdermal implant 68 mg Inject 68 mg subcutaneously one time only. [employer]: Addendum Therapy (PT/OT/Speech/Resp) ID: [id number] 10/17/2024 7:44 AM Author: JUDAH CLAY Signed by JUDAH CLAY PT, DPT on 10/17/2024 at 7:44 AM * * * This document replaces document [id number] * * * Document text: Program_ID:[id number] Access Code: [email or web address] URL: [email or web address] Date: 10-17-2024 Prepared By: JUDAH CLAY Program Notes Exercises - Standing Shoulder Row with Anchored Resistance - 1 x daily - 7 x weekly - 2 sets - 12-15 reps - Shoulder External Rotation and Scapular Retraction with Resistance - 1 x daily - 7 x weekly - 2 sets - 12-15 reps - Shoulder Horizontal Abduction with Anchored Resistance - 1 x daily - 7 x weekly - 2 sets - 12-15 reps - Seated Gaze Stabilization with Head Nod - 1 x daily - 7 x weekly - 3 sets - reps - Seated Gaze Stabilization with Head Rotation - 1 x daily - 7 x weekly - 3 sets - reps - Seated Cervical Sidebending Stretch - 2 x daily - 7 x weekly - 3 sets - reps - Seated Levator Scapulae Stretch - 2 x daily - 7 x weekly - 3 sets - reps - Standing Isometric Chin Tuck with Manual Resistance at Wall - 2 x daily - 7 x weekly - 1 sets - 10 reps [facility] THERAPY NTon 10-17-2024 THERAPY NT HNO ID: [id number] Author: JUDAH CLAY PT, DPT Service: ? Author Type: Physical Therapist Type: Therapy (PT/OT/Speech/Resp) Filed: 10/17/2024 07:44 Note Text: Program_ID:[id number] Access Code: [email or web address] URL: [email or web address] Date: 10-17-2024 Prepared By: JUDAH CLAY Program Notes Exercises - Standing Shoulder Row with Anchored Resistance - 1 x daily - 7 x weekly - 2 sets - 12-15 reps - Shoulder External Rotation and Scapular Retraction with Resistance - 1 x daily - 7 x weekly - 2 sets - 12-15 reps - Shoulder Horizontal Abduction with Anchored Resistance - 1 x daily - 7 x weekly - 2 sets - 12-15 reps - Seated Gaze Stabilization with Head Nod - 1 x daily - 7 x weekly - 3 sets - reps - Seated Gaze Stabilization with Head Rotation - 1 x daily - 7 x weekly - 3 sets - reps - Seated Cervical Sidebending Stretch - 2 x daily - 7 x weekly - 3 sets - reps - Seated Levator Scapulae Stretch - 2 x daily - 7 x weekly - 3 sets - reps - Standing Isometric Chin Tuck with Manual Resistance at Wall - 2 x daily - 7 x weekly - 1 sets - 10 reps [facility] CNTHERAPYon 10-16-2024 CNTHERAPY OT/PT/Speech Visit (PNORCA) ----- EMILY GONSALEZ ([id number]) 5 F Date Time Provider [facility] [place] 10/16/2024 7:15 AM [id number], YEVG*[facility] Reason for Visit: Physical Therapy [503] Primary Visit Diagnosis:Dizziness [R42] Other Visit Diagnosis:Post-concussion headache [G44.309] Allergies As of Date: 10/16/2024 (No Known Allergies) Date Reviewed: 10/11/2024 Reviewed by: Lindsay Mills LPN - Fully Assessed Prescriptions as of 10/16/2024 - amantadine HCl (SYMMETREL) 100 mg capsule Take 100 mg by mouth two times a day. - rizatriptan (MAXALT) 10 mg tablet Take 1 tablet (10 mg) by mouth as directed. at onset of headache. May repeat after 2 hours. Do not exceed 30 mg per day. - FLUoxetine (PROZAC) 10 mg capsule Take 1 capsule by mouth daily with breakfast. - etonogestrel (NEXPLANON) subdermal implant 68 mg Inject 68 mg subcutaneously one time only. [employer]: Addendum Therapy (PT/OT/Speech/Resp) ID: [id number] 10/16/2024 7:56 AM Author: JUDAH CLAY Signed by JUDAH CLAY PT, DPT on 10/16/2024 at 7:56 AM * * * This document replaces document [id number] * * * Document text: Program_ID:[id number] Access Code: [email or web address] URL: [email or web address] Date: 10-16-2024 Prepared By: JUDAH CLAY Program Notes Exercises - Standing Shoulder Row with Anchored Resistance - 1 x daily - 7 x weekly - 2 sets - 12-15 reps - Shoulder External Rotation and Scapular Retraction with Resistance - 1 x daily - 7 x weekly - 2 sets - 12-15 reps - Shoulder Horizontal Abduction with Anchored Resistance - 1 x daily - 7 x weekly - 2 sets - 12-15 reps - Seated Gaze Stabilization with Head Nod - 1 x daily - 7 x weekly - 3 sets - reps - Seated Gaze Stabilization with Head Rotation - 1 x daily - 7 x weekly - 3 sets - reps [facility] THERAPY NTon 10-16-2024 THERAPY NT HNO ID: [id number] Author: JUDAH CLAY PT, DPT Service: ? Author Type: Physical Therapist Type: Therapy (PT/OT/Speech/Resp) Filed: 10/16/2024 07:56 Note Text: Program_ID:[id number] Access Code: [email or web address] URL: [email or web address]/ Date: 10-16-2024 Prepared By: JUDAH CLAY Program Notes Exercises - Standing Shoulder Row with Anchored Resistance - 1 x daily - 7 x weekly - 2 sets - 12-15 reps - Shoulder External Rotation and Scapular Retraction with Resistance - 1 x daily - 7 x weekly - 2 sets - 12-15 reps - Shoulder Horizontal Abduction with Anchored Resistance - 1 x daily - 7 x weekly - 2 sets - 12-15 reps - Seated Gaze Stabilization with Head Nod - 1 x daily - 7 x weekly - 3 sets - reps - Seated Gaze Stabilization with Head Rotation - 1 x daily - 7 x weekly - 3 sets - reps [facility] CNTHERAPYon 10-13-2024 CNTHERAPY OT/PT/Speech Visit (PNORCA) ----- EMILY GONSALEZ ([id number]) 5 F Date Time Provider Department 10/13/24 10:15 AM JUDAH CLAY Date Time Provider Department Center 10/13/2024 10:15 AM [id number], YEVG*[facility] Reason for Visit: PT Eval [747] Primary Visit Diagnosis:Post-concussion headache [G44.309] Other Visit Diagnosis:Dizziness [R42] Allergies As of Date: 10/13/2024 (No Known Allergies) Date Reviewed: 10/11/2024 Reviewed by: Lindsay Mills LPN - Fully Assessed Prescriptions as of 10/16/2024 - amantadine HCl (SYMMETREL) 100 mg capsule Take 100 mg by mouth two times a day. - rizatriptan (MAXALT) 10 mg tablet Take 1 tablet (10 mg) by mouth as directed. at onset of headache. May repeat after 2 hours. Do not exceed 30 mg per day. - FLUoxetine (PROZAC) 10 mg capsule Take 1 capsule by mouth daily with breakfast. - etonogestrel (NEXPLANON) subdermal implant 68 mg Inject 68 mg subcutaneously one time only. [facility] CNOVon 10-11-2024 OV Office Visit (ULISES ) ----- EMILY GONSALEZ ([id number]) 5 F Date Time Provider Department 10/11/24 10:40 AM LASHA WITT During your visit today, we recorded the following information about you: Pulse Respiration Blood pressure Weight 70/minute 18/minute 104/70 64.4 kg Lasha Witt MD 10/11/2024 11:19 AM Signed ASSESSMENT AND PLAN: Problem List Items Addressed This Visit None Visit Diagnoses Post-concussion headache - Primary Relevant Medications rizatriptan (MAXALT) 10 mg tablet Other Relevant Orders CONSULT TO PHYSICAL THERAPY Advised using OTC Excedrin with caffeine PRN. Encouraged sufficient sleep and regular rise time. Encouraged adequate hydration. Avoid inflammatory foods like sugar. Limit screen time. Discussed slow return to regular activity. Questions and concerns addressed in office. AVS provided. FOLLOW UP: Return if symptoms worsen or fail to improve. SUBJECTIVE: Emily Gonsalez is a 19 year old female presenting in the office today. CC: Patient presents with: Headache: Pt presents for Headaches, pt was playing Lacrosse in mid August and was hit in the head with a ball and had a mild concussion and that is when the headaches started. Pt states the [employer] wanted pt to do eye and ear exercises and when she did that it made it worse. Pt states when she started exercising it was getting worse, pt states her production trainer wanted her to start jogging and so she went 15 min. Came back and passed out. Medications were reviewed and verified. 09/19/2024 10/11/2024 INTAKE PAIN ASSESSMENT Are you having pain associated with your visit today? No Yes, Provider notified If pain assessment is 0, no action needed. If pain assessment is positive, please see assessment and plain. HPI: White female presents with complaints of band/tension like headache since August 30, 2024 following a concussion while playing lacrosse. Returned to game though did not participate in any practices or games following injury. Was given accommodations for classes. Passed her classes. Physical training has been working with patient daily. Sports physician prescribed amantadine and recommended eye and ear exercises. Could not tolerate exercises due to dizziness. Headaches fluctuate and associated with dizziness. Has been trying Tylenol and ibuprofen. PHYSICAL EXAMINATION: BP 104/70 Pulse 70 Resp 18 Wt 142 lb (64.4kg) SpO2 96% Physical Exam Vitals reviewed. Constitutional: Appearance: Normal appearance. HENT: Head: Normocephalic and atraumatic. Cardiovascular: Rate and Rhythm: Normal rate. Pulmonary: Effort: Pulmonary effort is normal. Breath sounds: Normal breath sounds. Neurological: Mental Status: She is alert. Cranial Nerves: Cranial nerves 2-12 are intact. Coordination: Dncpde-Omvp-Sdxjsy Test and Heel to Christie Test normal. Gait: Gait and tandem walk normal. Psychiatric: Mood and Affect: Mood normal. Speech: Speech normal. Behavior: Behavior normal. Referring Provider: SELF [200] Allergies As of Date: 10/11/2024 (No Known Allergies) Date Reviewed: 10/11/2024 Reviewed by: Lindsay Mills LPN - Fully Assessed Reason for Visit: Headache [52] Cmt: Pt presents for Headaches, pt was playing Lacrosse in mid August and was hit in the head with a ball and had a mild concussion and that is when the headaches started. Pt states the [employer] wanted pt to do eye and ear exercises and when she did that it made it worse. Pt states when she started exercising it was getting worse, pt states her production trainer wanted her to start jogging and so she went 15 min. Came back and passed out. Primary Visit Diagnosis:Post-concussion headache [G44.309] Order(s):rizatriptan (MAXALT) 10 mg tabletTake 1 tablet (10 mg) by mouth as directed. at onset of headache. May repeat after 2 hours. Do not exceed 30 mg per day.Disp: 9 tabletRfl: 3 CONSULT TO PHYSICAL THERAPY [3257] Order #: [id number]: 1 FUTURE Prescriptions as of 10/11/2024 - amantadine HCl (SYMMETREL) 100 mg capsule Take 100 mg by mouth two times a day. - rizatriptan (MAXALT) 10 mg tablet Take 1 tablet (10 mg) by mouth as directed. at onset of headache. May repeat after 2 hours. Do not exceed 30 mg per day. - FLUoxetine (PROZAC) 10 mg capsule Take 1 capsule by mouth daily with breakfast. - etonogestrel (NEXPLANON) subdermal implant 68 mg Inject 68 mg subcutaneously one time only. Problem List As Of Date 10/11/2024 Noted Resolved Nexplanon in place [Z97.5] 04/12/2024 Anxiety and depression [F41.9, F32.A] 09/20/2024 Prescriptions ordered this encounter Disp Refills Start End RIZATRIPTAN 10 MG TABLET 9 ta* 3 10/11/2024 Route: ORAL Sig: Take 1 tablet (10 mg) by mouth as directed. at onset of headache. May repeat after 2 hours. Do not exceed 30 mg per day. Level of Service: OFFICE/OUTP (more content not included)... Normal [facility] COV19 Rapidon 09-03-2024 LAB ONLY Result Called? No Normal [facility] Comment on above: Performed By: #### C D:[id number] ####[id number] [place] [address] Reason for Rapid Test COVID Exposure Normal [facility] Comment on above: Performed By: #### C [id number] ####[id number] [place], [place] [id number] SARS-CoV-2 (COVID-19) RNA ISIDRA+probe Ql (Unsp spec) Negative Normal Negative [facility] Comment on above: Result Comment: The 2019 novel coronavirus SARS-CoV-2 target nucleic acids are not detected. This test is for the detection of SARS-CoV-2 RNA. Positive results are indicative of active infection with SARS-CoV-2. Positive results do not rule out bacterial infection or co-infection with other viruses. Negative results should be treated as presumptive and, if inconsistent with clinical signs and symptoms or necessary for patient management, should be tested with an alternative molecular assay.Negative results do not preclude SARS-CoV-2 infection and should not be used as the sole basis for treatment or other patient management decisions. Clinical correlation with patient history and other diagnostic information is necessary to determine patient infection status. ID NOW COVID-19 2.0 assay performed on the ID NOW Instrument is a rapid molecular in vitro diagnostic test utilizing an isothermal nucleic acid amplification technology (NAAT) intended for the qualitative detection of nucleic acid from SARS-CoV-2 in direct anterior nasal (nasal) or nasopharyngeal swab specimens from individuals with signs and symptoms of respiratory tract infection. Performed By: #### C D:[id number] ####[address] [place] [address] ED Clinical Summaryon 2023 ED Clinical Summary [address] [address] ED Clinical Summary Person Information Name: Emily Gonsalez [facility] Age: 19 Years : 2005 Sex: Female PCP: Marital Status: Single Phone: Race: White Ethnicity: Not or Language: Bulgarian [facility]: [id number] Visit Reason: Headache; Cough; Eye foreign body; Concussion Acuity: 3 Enc Type: Emergency Med Service: Emergency Medicine Arrival: 09/03/2024 16:43:50 Discharge: 09/03/2024 17:58:00 LOS: 000 01:15 Checkin: 09/03/2024 16:43:50 Checkout: 09/03/2024 17:58:00 Dispo Type: Home or Self Care Address: [address] [place] [id number] Provider Notes: Diagnosis: 1:Corneal abrasion; 2:Sinusitis Problems No Problems Documented Smoking Status: Smoking Status Never (less than 100 in lifetime) Functional Status: Sensory Deficits: History of Falls: Mobility Assistance Prior to Admission: ADLs: Current Level of Assistance for Self-Care/Mobility: Cognitive Status: Allergies No Known Medication Allergies Laboratory or Other Results This Visit (last charted value for your 09/03/2024 visit) Molecular 09/03/2024 5:09 PM SARS-CoV-2 RNA Detection: Negative Flu A Viral RNA: Negative Flu B Viral RNA: Negative Measurements: Height: Weight: 63.2 kg Blood Pressure: /97 mmHg BMI: Procedures No Procedures Documented Immunizations No Immunizations Documented This Visit Final Med List: New Medications [facility]/pharmacy #[id number], [address] [place], [place] [id number], [phone] amoxicillin-clavulanate (Augmentin 875 mg-125 mg oral tablet) 1 Tabs Oral (given by mouth) every 12 hours for 14 Days. Refills: 0. Last Dose: erythromycin ophthalmic (erythromycin 0.5% ophthalmic ointment) 1 Application Left eye 4 times a day for 10 Days. Refills: 0. Last Dose: [facility]/pharmacy #[id number], [address] [place], [place] [id number], [phone] amoxicillin-clavulanate (Augmentin 875 mg-125 mg oral tablet) 1 Tabs Oral (given by mouth) every 12 hours for 14 Days. Refills: 0. erythromycin ophthalmic (erythromycin 0.5% ophthalmic ointment) 1 Application Left eye 4 times a day for 10 Days. Refills: 0. Care Team Members: Attending Physician: Karoline Singh Consulting Physician: Referring Physician: Provider Role Assigned Unassigned FairbanksAshuah Horacio ED Nurse 09/03/2024 16:51:22 Karoline Singh ED MidLevel 09/03/2024 16:54:31 Follow up: With: Address: When: Primary care provider Comments: Follow-up with your primary care provider in 3 to 5 days for reevaluation of symptoms as needed. Start taking Augmentin twice a day x 10 days. Apply the erythromycin ointment to the left eye 4 times a day x 10 days. You can take Tylenol and/or ibuprofen as needed for any pain or discomfort. Please return to the emergency department for any new or worsening symptoms. Discharge Orders: Discharge Patient 09/03/24 17:27:00 EST, Discharge to Home, Self Patient Education Information: Erythromycin Ophthalmic Ointment; Amoxicillin/Clavulanate Oral Tablet; Chronic Sinusitis; Causes of Sinusitis [facility] Poison Help line: . [facility] Hotline: [place] Tobacco Quit Line: [place], [place]) [address]: [phone] [place], [place]) [address]: [phone] [facility] [address] [place], [place]: [phone] Normal [facility] ED Note-Physicianon 09-03-20 ED Note-Physician Chief Complaint Patient reports feeling sharp sensation in left eye, patient states getting hit in head two days ago at lacrosse, also has had viral symptoms all week History of Present Illness Patient is an alert, oriented 19-year-old female presenting to the emergency department with complaints of feeling a sharp sensation in her left eye. Patient reports that she did get hit head a couple days ago during a lacrosse game and has had viral symptoms all week. Viral symptoms include the runny nose and nasal congestion. Patient started having some light sensitivity to the left eye as well. On initial evaluation I do note PERRLA. EAC and TM bilaterally are without erythema or edema however TM is bulging bilaterally and there is what appears to be a sick mucous effusion which I feel is indicative of a sinus infection and patient would benefit from antibiotic therapy. I did discuss with patient about getting a better look at the eye. When just evaluating it sclera and conjunctiva are both erythemic and edematous. Lower eyelids are also edematous. I discussed instilling proparacaine drops and fluorescein dye in order to better evaluate and patient is agreeable. This was done and I do note an increased uptake inferior to the iris more so on the right-hand side. This is indicative of a corneal abrasion. I discussed treatment with erythromycin ointment and patient is agreeable. All orders placed accordingly. Review of Systems As reviewed in the HPI. All other systems reviewed are negative or normal. Physical Exam As dictated in HPI. If not mentioned it is presumed within normal limits. Vitals & Measurements T: 37.5 ?C (Oral) HR: 68 (Peripheral) RR: 18 BP: 131/97 SpO2: 99% HT: 162 cm WT: 63.2 kg (Dosing) Additional Vitals No qualifying data available. Procedure No qualifying data available. ASA Documentation Medical Decision Making MEDICAL DECISION MAKING Number and Complexity of Problems Differential Diagnosis: _Including but not limited to influenza, COVID, sinusitis, corneal abrasion, viral illness Treatment and Disposition ED Course: _ Patient is an alert, oriented 19-year-old female presenting to the emergency department with complaints of feeling a sharp sensation in her left eye. Patient reports that she did get hit head a couple days ago during a lacrosse game and has had viral symptoms all week. Viral symptoms include the runny nose and nasal congestion. Patient started having some light sensitivity to the left eye as well. On initial evaluation I do note PERRLA. EAC and TM bilaterally are without erythema or edema however TM is bulging bilaterally and there is what appears to be a sick mucous effusion which I feel is indicative of a sinus infection and patient would benefit from antibiotic therapy. I did discuss with patient about getting a better look at the eye. When just evaluating it sclera and conjunctiva are both erythemic and edematous. Lower eyelids are also edematous. I discussed instilling proparacaine drops and fluorescein dye in order to better evaluate and patient is agreeable. This was done and I do note an increased uptake inferior to the iris more so on the right-hand side. This is indicative of a corneal abrasion. I discussed treatment with erythromycin ointment and patient is agreeable. All orders placed accordingly. Plan to discharge home with the following discharge instructions: Follow-up with your primary care provider in 3 to 5 days for reevaluation of symptoms as needed. Start taking Augmentin twice a day x 10 days. Apply the erythromycin ointment to the left eye 4 times a day x 10 days. You can take Tylenol and/or ibuprofen as needed for any pain or discomfort. Please return to the emergency department for any new or worsening symptoms. Patient verbalized understanding had no further questions or concerns. All were agreeable with this plan of care. Shared decision making: _The results of pertinent diagnostic studies and exam findings were discussed. The patient's provisional diagnosis and plan of care were discussed with the patient and present family. The patient and/or present family expressed understanding of the diagnosis and plan. The nurse was instructed to provide written instructions and appropriate follow-up information. The patient understands their need and responsibility to obtain additional follow-up as instructed. The risks of medications administered and prescribed were discussed with the patient and family present. Code status: _Full code Assessment/Plan 1. Corneal abrasion Ordered: amoxicillin-clavulanate, 1 tabs, Oral, q12hr, X 14 days, # 28 tabs, 0 Refill(s), 09/17/24 17:24:00 EST, Pharmacy: [id number] erythromycin ophthalmic, 1 tommy, Eye-Left, QID, X 10 days, # 3.5 g, 0 Refill(s), 09/13/24 17:24:00 EST, Pharmacy: [id number] 2. Sinusitis Ordered: amoxicillin-clavulanate, 1 tabs, Oral, q12hr, X 14 days, # 28 tabs, 0 Refill(s), 09/17/24 17:24:00 EST, Pharmacy: [facility]/pharmacy #[id number] eryth (more content not included)... Normal [facility] Flu A/B RNA Rapidon 09-03-20 Flu A Viral RNA Negative Normal Negative [facility] Comment on above: Performed By: #### C D:[id number] ####[facility] [address] [address] Flu B Viral RNA Negative Normal Negative [facility] Comment on above: Performed By: #### C D:[id number] ####[place] [id number] 25([place])D3 [facility] 25-hydroxyvitamin D3 [Mass/Vol] 51.7 ng/mL Normal >=30.0 [facility] Comment on above: Order Comment: Speci men Type: BLOOD SPECIMEN Ordering Facility: [facility] Address: [address] [place] [address] Result Comment: Clas sification of 25 [place] Vitamin D status: Deficiency: <= 20.0 ng/ml. Insufficiency: 21.0-29.0 ng/ml. Sufficiency: >= 30.0 ng/ml. Performed By: #### 1 989-3 #### [facility] CLIA [id number] 1 [place] [address] [place] CBC W Auto Differential pane l (Bld)on 04-12-2024 Basophils (Bld) [#/Vol] 0.04 10*3/uL Normal <0.11 [facility] Comment on above: Order Comment: Speci men Type: BLOOD SPECIMEN Ordering Facility: [facility] Address: [address] [place] [address] Performed By: #### 5 7021-8 #### [facility] CLIA [id number] [address] [place] Basophils/100 WBC (Bld) 0.8 % Normal [facility] Comment on above: Order Comment: Speci men Type: BLOOD SPECIMEN Ordering Facility: [facility] Address: [address] [place] [address] Performed By: #### 5 7021-8 #### [facility] CLIA [id number] [address] [place] Differential cell count method Nom (Bld) Auto Normal [facility] Comment on above: Order Comment: Speci men Type: BLOOD SPECIMEN Ordering Facility: [facility] Address: [address] [place] [address] Performed By: #### 5 7021-8 #### [facility] CLIA [id number] [address] [place] Eosinophils (Bld) [#/Vol] 0.07 10*3/uL Normal <0.46 [facility] Comment on above: Order Comment: Speci men Type: BLOOD SPECIMEN Ordering Facility: [facility] Address: [address] [place] [address] Performed By: #### 5 7021-8 #### [facility] CLIA [id number] [address] [place] Eosinophils/100 WBC (Bld) 1.5 % Normal [facility] Comment on above: Order Comment: Speci men Type: BLOOD SPECIMEN Ordering Facility: [facility] Address: [address] [place] [address] Performed By: #### 5 7021-8 #### [facility] CLIA [id number] [address] [place] Erythrocyte distribution width (RBC) [Ratio] 12.1 % Normal 11.5-15.0 [facility] Comment on above: Order Comment: Speci men Type: BLOOD SPECIMEN Ordering Facility: [facility] Address: [address] [place] [address] Performed By: #### 5 7021-8 #### [facility] CLIA [id number] [address] [place] Hematocrit (Bld) [Volume fraction] 42.1 % Normal 36.0-46.0 [facility] Comment on above: Order Comment: Speci men Type: BLOOD SPECIMEN Ordering Facility: [facility] Address: [address] [place] [address] Performed By: #### 5 7021-8 #### [facility] CLIA [id number] [address] [place] Hemoglobin (Bld) [Mass/Vol] 14.0 g/dL Normal 11.5-15.5 [facility] Comment on above: Order Comment: Speci men Type: BLOOD SPECIMEN Ordering Facility: [facility] Address: [address] [place] [address] Performed By: #### 5 7021-8 #### [facility] CLIA [id number] [address] [place] Immature granulocytes (Bld) [#/Vol] 10*3/uL Normal <0.10 [facility] Comment on above: Order Comment: Speci men Type: BLOOD SPECIMEN Ordering Facility: [facility] Address: [address] [place] [address] Performed By: #### 5 7021-8 #### [facility] CLIA [id number] [address] Immature granulocytes/100 WBC (Bld) 0.2 % Normal [facility] Comment on above: Order Comment: Speci men Type: BLOOD SPECIMEN Ordering Facility: [facility] Address: [address] [place] [address] Performed By: #### 5 7021-8 #### [facility] CLIA [id number] [address] [place] Lymphocytes (Bld) [#/Vol] 1.85 10*3/uL Normal 1.00-4.00 [facility] Comment on above: Order Comment: Speci men Type: BLOOD SPECIMEN Ordering Facility: [facility] Address: [address] [place] [address] Performed By: #### 5 7021-8 #### [facility] CLIA [id number] [address] Lymphocytes/100 WBC (Bld) 39.1 % Normal [facility] Comment on above: Order Comment: Speci men Type: BLOOD SPECIMEN Ordering Facility: [facility] Address: [address] [place] [address] Performed By: #### 5 7021-8 #### [facility] CLIA [id number] [address] [place] MCH (RBC) [Entitic mass] 29.7 pg Normal 26.0-34.0 [facility] Comment on above: Order Comment: Speci men Type: BLOOD SPECIMEN Ordering Facility: [facility] Address: [address] [place] [address] Performed By: #### 5 7021-8 #### [facility] CLIA [id number] [address] MCHC (RBC) [Mass/Vol] 33.3 g/dL Normal 30.5-36.0 [facility] Comment on above: Order Comment: Speci men Type: BLOOD SPECIMEN Ordering Facility: [facility] Address: [address] [place] [address] Performed By: #### 5 7021-8 #### [facility] CLIA [id number] [address] MCV (RBC) [Entitic vol] 89.2 fL Normal 80.0-100.0 [facility] Comment on above: Order Comment: Speci men Type: BLOOD SPECIMEN Ordering Facility: [facility] Address: [address] [place] [address] Performed By: #### 5 7021-8 #### [facility] CLIA [id number] [address] Monocytes (Bld) [#/Vol] 0.37 10*3/uL Normal <0.87 [facility] Comment on above: Order Comment: Speci men Type: BLOOD SPECIMEN Ordering Facility: [facility] Address: [address] [place] [address] Performed By: #### 5 7021-8 #### [facility] CLIA [id number] [address] Monocytes/100 WBC (Bld) 7.8 % Normal [facility] Comment on above: Order Comment: Speci men Type: BLOOD SPECIMEN Ordering Facility: [facility] Address: [address] [place] [address] Performed By: #### 5 7021-8 #### [facility] CLIA [id number] [address] Neutrophils (Bld) [#/Vol] 2.39 10*3/uL Normal 1.45-7.50 [facility] Comment on above: Order Comment: Speci men Type: BLOOD SPECIMEN Ordering Facility: [facility] Address: [address] [place] [address] Performed By: #### 5 7021-8 #### [facility] CLIA [id number] [address] Neutrophils/100 WBC (Bld) 50.6 % Normal [facility] Comment on above: Order Comment: Speci men Type: BLOOD SPECIMEN Ordering Facility: [facility] Address: [address] [place] [address] Performed By: #### 5 7021-8 #### [facility] CLIA [id number] [address] Nucleated RBC (Bld) [#/Vol] 10*3/uL Normal <0.01 [facility] Comment on above: Order Comment: Speci men Type: BLOOD SPECIMEN Ordering Facility: [facility] Address: [address] [place] [address] Performed By: #### 5 7021-8 #### [facility] CLIA [id number] [address] Nucleated RBC/100 WBC (Bld) [Ratio] 0.0 /100 WBC Normal [facility] Comment on above: Order Comment: Speci men Type: BLOOD SPECIMEN Ordering Facility: [facility] Address: [address] [place] [address] Performed By: #### 5 7021-8 #### [facility] CLIA [id number] [address] [place] Platelet mean volume (Bld) [Entitic vol] 12.4 fL Normal 9.0-12.7 [facility] Comment on above: Order Comment: Speci men Type: BLOOD SPECIMEN Ordering Facility: [facility] Address: [address] [place] [address] Performed By: #### 5 7021-8 #### [facility] CLIA [id number] [address] [place] Platelets (Bld) [#/Vol] 218 10*3/uL Normal 150-400 [facility] Comment on above: Order Comment: Speci men Type: BLOOD SPECIMEN Ordering Facility: [facility] Address: [address] [place] [address] Performed By: #### 5 7021-8 #### [facility] CLIA [id number] [address] RBC (Bld) [#/Vol] 4.72 10*6/uL Normal 3.90-5.20 [facility] Comment on above: Order Comment: Speci men Type: BLOOD SPECIMEN Ordering Facility: [facility] Address: [address] [place] [address] Performed By: #### 5 7021-8 #### [facility] CLIA [id number] [address] WBC (Bld) [#/Vol] 4.73 10*3/uL Normal 3.70-11.00 [facility] Comment on above: Order Comment: Speci men Type: BLOOD SPECIMEN Ordering Facility: [facility] Address: [address] [place] [address] Performed By: #### 5 7021-8 #### [facility] CLIA [id number] [address] Comprehensive metabolic 2000 panelon 04-12-2024 Albumin [Mass/Vol] 4.4 g/dL Normal 3.9-4.9 [facility] Comment on above: Order Comment: Speci men Type: BLOOD SPECIMEN Ordering Facility: [facility] Address: [address] [place] [address] Performed By: #### 2 276-4, 52441-9, 3016-3, 09715-1 #### [facility] CLIA [id number] [address] ALP [Catalytic activity/Vol] 65 U/L Normal 34-123 [facility] Comment on above: Order Comment: Speci men Type: BLOOD SPECIMEN Ordering Facility: [facility] Address: [address] [place] [address] Performed By: #### 2 276-4, 99839-7, 3015-3, #### [facility] CLIA [id number] [address] OF [facility] ALT With P-5'-P [Catalytic activity/Vol] 11 U/L Normal 7-38 [facility] Comment on above: Order Comment: Speci men Type: BLOOD SPECIMEN Ordering Facility: [facility] Address: [address] [place] [address] Performed By: #### 2 276-4, 54468-4, 3015-3, #### [facility] CLIA [id number] [address] STATES OF [facility] Anion gap [Moles/Vol] 10 mmol/L Normal 8-15 [facility] Comment on above: Order Comment: Speci men Type: BLOOD SPECIMEN Ordering Facility: [facility] Address: [address] [place] [address] Performed By: #### 2 276-4, 71088-8, 3, #### [facility] CLIA [id number] [address] AST With P-5'-P [Catalytic activity/Vol] 16 U/L Normal 13-35 [facility] Comment on above: Order Comment: Speci men Type: BLOOD SPECIMEN Ordering Facility: [facility] Address: [address] [place] [address] Performed By: #### 2 276-4, 23401-2, 3015-3, 44134-4 #### [facility] CLIA [id number] [address] [place] Bilirubin [Mass/Vol] 0.4 mg/dL Normal 0.2-1.3 [facility] Comment on above: Order Comment: Speci men Type: BLOOD SPECIMEN Ordering Facility: [facility] Address: [address] [place] [address] Performed By: #### 2 276-4, 61843-5, 301-3, 61307-0 #### [facility] CLIA [id number] 1 [place] [address] [place] Calcium [Mass/Vol] 9.5 mg/dL Normal 8.5-10.2 [facility] Comment on above: Order Comment: Speci men Type: BLOOD SPECIMEN Ordering Facility: [facility] Address: [address] [place] [address] Performed By: #### 2 276-4, 67298-9, 3015-3, 25412-2 #### [facility] CLIA [id number] 1 [place] [address] [place] Chloride [Moles/Vol] 106 mmol/L Normal 98-107 [facility] Comment on above: Order Comment: Speci men Type: BLOOD SPECIMEN Ordering Facility: [facility] Address: [address] [place] [address] Performed By: #### 2 276-4, 38855-4, 3015-3, 71578-0 #### [facility] CLIA [id number] 1 [place] [address] [place] CO2 [Moles/Vol] 25 mmol/L Normal 22-30 [facility] Comment on above: Order Comment: Speci men Type: BLOOD SPECIMEN Ordering Facility: [facility] Address: [address] [place] [address] Performed By: #### 2 276-4, 49309-8, 3015-3, 02688-6 #### [facility] CLIA [id number] 1 [place] [address] [place] Creatinine [Mass/Vol] 0.68 mg/dL Normal 0.58-0.96 [facility] Comment on above: Order Comment: Speci men Type: BLOOD SPECIMEN Ordering Facility: [facility] Address: [address] [place] [address] Performed By: #### 2 276-4, 82363-6, 3015-3, 10939-6 #### [facility] CLIA [id number] [address] [place] Creatinine and Glomerular filtration rate.predicted panel (S/P/Bld) 129 mL/min/1.73m??? Normal >=60 [facility] Comment on above: Order Comment: Markus marie Type: BLOOD SPECIMEN Ordering Facility: [facility] Address: [address] [place] [address] Result Comment: Ivy mated Glomerular Filtration Rate (eGFR) is calculated using the 2020 CKD-EPI creatinine equation. This equation utilizes serum creatinine, sex, and age as parameters. The creatinine assay has traceable calibration to isotope dilution-mass spectrometry. Refer to KDIGO guidelines for clinical interpretation. In patients with unstable renal function, e.g. those with acute kidney injury, the eGFR may not accurately reflect actual GFR. Performed By: #### 2 276-4, 25780-4, 3016-3, 46055-8 #### [facility] CLIA [id number] [address] [place] Glucose [Mass/Vol] 103 mg/dL High 74-99 [facility] Comment on above: Order Comment: Markus marie Type: BLOOD SPECIMEN Ordering Facility: [facility] Address: [address] [place] [address] Result Comment: The [place] Diabetes [employer] (ADA) provides guidance for cutoff values for fasting glucose and random glucose. The ADA defines fasting as no caloric intake for at least 8 hours. Fasting plasma glucose results between 100 to 125 mg/dL indicate increased risk for diabetes (prediabetes). Fasting plasma glucose results greater than or equal to 126 mg/dL meet the criteria for diagnosis of diabetes. In the absence of unequivocal hyperglycemia, results should be confirmed by repeat testing. In a patient with classic symptoms of hyperglycemia or hyperglycemic crisis, random plasma glucose results greater than or equal to 200 mg/dL meet the criteria for diagnosis of diabetes. Reference: Standards of Medical Care in Diabetes 2016, [place] Diabetes Association. Diabetes Care. 2016.39(Suppl 1). Performed By: #### 2 276-4, 12395-5, 3016-3, 67776-9 #### [facility] CLIA [id number] [address] [place] Potassium [Moles/Vol] 4.7 mmol/L Normal 3.7-5.1 [facility] Comment on above: Order Comment: Speci men Type: BLOOD SPECIMEN Ordering Facility: [facility] Address: [address] [place] [address] Performed By: #### 2 276-4, 50000-6, 3016-3, 71408-0 #### [facility] CLIA [id number] [address] [place] Protein [Mass/Vol] 6.6 g/dL Normal 6.3-8.0 [facility] Comment on above: Order Comment: Speci men Type: BLOOD SPECIMEN Ordering Facility: [facility] Address: [address] [place] [address] Performed By: #### 2 276-4, 12385-2, 3016-3, 57577-2 #### [facility] CLIA [id number] [address] STATES OF [facility] Sodium [Moles/Vol] 141 mmol/L Normal 136-144 [facility] Comment on above: Order Comment: Speci men Type: BLOOD SPECIMEN Ordering Facility: [facility] Address: [address] [place] [address] Performed By: #### 2 276-4, 99358-9, 3016-3, 91330-0 #### [facility] CLIA [id number] [address] [place] Urea nitrogen [Mass/Vol] 9 mg/dL Normal 7-21 [facility] Comment on above: Order Comment: Speci men Type: BLOOD SPECIMEN Ordering Facility: [facility] Address: [address] [place] [address] Performed By: #### 2 276-4, 65440-6, 3016-3, 83331-2 #### [facility] CLIA [id number] 1 [place] [address] [place] Ferritin SerPl-ncon 2023 Ferritin [Mass/Vol] 29.2 ng/mL Normal 14.7-205.1 [facility] Comment on above: Order Comment: Markus marie Type: BLOOD SPECIMEN Ordering Facility: [facility] Address: [address] [place] [address] Performed By: #### 2 276-4, 12735-3, 3016-3, 32563-0 #### [facility] CLIA [id number] [address] [place] Folate SerPl-ncon 04-12-20 24 Folate [Mass/Vol] ng/mL Normal >4.7 [facility] Comment on above: Order Comment: Markus marie Type: BLOOD SPECIMEN Ordering Facility: [facility] Address: [address] [place] [address] Result Comment: A re sult of > 20 ng/mL is not necessarily indicative of a pathologic or treatable condition: it reflects a limitation of the test methodology. Assay reference range: 4.8 to 24.2 ng/mL. Suitable for detection of folate deficiency. Reference: Folate III (Folate III) [package insert V 1.0 Bulgarian]. [facility], [place], [place]: August 2015. Performed By: #### 2 132-9, 2284-8, 39604-5 #### [facility] CLIA [id number] [address] OF [facility] HCV Ab Ser Qlon 04-12-2024 HCV Ab Ql (S) Non-Reactive Normal Nonreactive [facility] Comment on above: Order Comment: Markus marie Type: BLOOD SPECIMEN Ordering Facility: [facility] Address: [address] [place] [address] Result Comment: The result suggests no evidence of active infection with Hepatitis C virus. Should recent infection be suspected, repeat testing may be considered 4-6 weeks after this draw. Performed By: #### 2 132-9, 2284-8, 72390-6 #### [facility] CLIA [id number] [address] OF [facility] HIV 1+2 Ab IA Qlon HIV 1 and 2 Ab IA.rapid Nom (S/P/Bld) Normal [facility] Comment on above: Order Comment: Speci men Type: BLOOD SPECIMEN Ordering Facility: [facility] Address: [address] [place] [address] Result Comment: Test not indicated. Performed By: #### 2 132-9, 2284-8, 02209-9 #### [facility] CLIA [id number] [address] [place] HIV 1+2 Ab+HIV1 p24 Ag IA Ql Non-Reactive Normal Nonreactive [facility] Comment on above: Order Comment: Speci men Type: BLOOD SPECIMEN Ordering Facility: [facility] Address: [address] [place] [address] Result Comment: [place] Rev. Code 3701.243(E): This information has been disclosed to you from confidential records protected from disclosure by state law. ???You shall make no further disclosure of this information without the specific, written, and informed release of the individual to whom it pertains or as otherwise permitted by state law. A general authorization for the release of medical or other information is not sufficient for the purpose of the release of HIV test results or diagnoses. Test methodology for this assay has moved from Siemens Centaur XP to [facility] enrike 8000 effective July 28, 2022. Please note there may be a change in the reporting units and/or reference range. Performed By: #### 2 132-9, 4-8, 04188-0 #### [facility] CLIA [id number] [address] STATES OF [facility] HIV immunoassay testing algorithm interpretation (S/P/Bld) [Interp] Normal [facility] Comment on above: Order Comment: Speci men Type: BLOOD SPECIMEN Ordering Facility: [facility] Address: [address] [place] [address] Result Comment: No e vidence of HIV-1 or HIV-2 infection. Should recent infection be suspected, repeat testing may be considered 2-3 weeks after this draw. Performed By: #### 2 132-9, 2284-8, 12452-0 #### [facility] CLIA [id number] [address] [place] Iron and Iron binding capaci ty panelon 04-12-2024 Iron [Mass/Vol] 63 ug/dL Normal 41-186 [facility] Comment on above: Order Comment: Speci men Type: BLOOD SPECIMEN Ordering Facility: [facility] Address: [facility] [place] [id number] Performed By: #### 2 276-4, 41351-2, 3016-3, 88728-7 #### [facility] CLIA [id number] [address] Iron binding capacity [Mass/Vol] 294 ug/dL Normal 232-386 [facility] Comment on above: Order Comment: Speci men Type: BLOOD SPECIMEN Ordering Facility: [facility] Address: [address] [place] [address] Performed By: #### 2 276-4, 17681-2, 3016-3, 78883-5 #### [facility] CLIA [id number] [address] Iron saturation [Mass fraction] 21.4 % Normal 15.0-57.0 [facility] Comment on above: Order Comment: Speci men Type: BLOOD SPECIMEN Ordering Facility: [facility] Address: [address] [place] [address] Performed By: #### 2 276-4, 00846-0, 3016-3, 74181-6 #### [facility] CLIA [id number] [address] Progress Noteon 04-12-2024 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 female. Her chief complaint(s) include: Contraception (Patient would like to discuss BC and mood changes with it ) Assessment 1. Encounter for surveillance of Nexplanon subdermal contraceptive Plan Emily was seen today for contraception. Diagnoses and associated orders for this visit: Encounter for surveillance of Nexplanon subdermal contraceptive Emily Gonsalez is a 19 year old female currently using nexplanon for menstrual management. Has done well on nexplanon since insertion 08/2022. Reported mood changes with increasing anxiety around fall, which was a year post insertion. We did validate and discuss concerns for mood changes. Discussed that due to timing of mood changes, less likely caused by nexplanon and more likely r/t transition to college and increased stressors. Discussed reassuring now that feels symptoms have improved. NO SI/HI or safety concerns. Emily wishes to keep nexplanon at this time and we discussed will be due for removal 2024. Also counseled on recommendations for pap smear at age 21. Encouraged to follow up with her PCP if further concerns arise and also encouraged to establish with therapist for support. Reviewed emergency resources available and return precautions. This encounters total time was 30 minutes which includes chart review, counseling, documentation and/or coordination of care Subjective HPI Comments: Emily Gonsalez here today for follow up. Last seen in adolescent medicine clinic in August 2022 when she had Nexplanon placed. Prior to Nexplanon was using OCP that had been started by her PCP. Had issues remembering to take OCP and was interested in a LARC. Menarche at age 12 years. Prior to hormonal methods, periods regular coming monthly. OCP started by PCP for menstrual management to help with heavy bleeding and cramping, which helped significantly. Reports very happy with nexplanon, has not had a period since it was inserted. Never sexually active and no plans to become sexually active at this time. Denies need for sti screening. Questions regarding mood and nexplanon. Nexplanon placed 08/2022. Around fall (~1 year post insertion) when in freshman year of college, reported some mood changes and increased stressors/anxiety. Denies any SI/HI or safety concerns. Reports it has improved since finished her freshman year. Was wondering if this was r/t nexplanon. PCP at outside facility. No chronic medical problems. Recent visit with new PCP to establish care but reports not a fit so will be establishing with different PCP. Has a therapist in mind (kierra based, which is important to her) that she may establish with. Denies need for medication at this time. Feeling well today. Denies other concerns. Attending college at [employer]. 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 Going to [employer] soon as well. Emily is unaccompanied. History obtained from patient. Emily patient preferred pronouns are she/her/hers. No english language arts teacher was used. Contraception The patient is here today regarding a concern with current method. status: not . The patient has never had a sexual partner. The patient has never had sex. Emily is taking medications properly. Review of Systems All other systems reviewed and are negative. Objective Vital Signs 04/12/24 0805 BP: 99/54 Pulse: (!) 43 Weight: 63.1 kg Height: 167 cm Body mass index is 22.63 kg/m . Physical Exam Constitutional: She appears well. She is active. No distress. HENT: Head: Atraumatic. Nose: Nose normal. No nasal discharge. Mouth/Throat: Mucous membranes are moist. Pulmonary/Chest: Effort normal. Neurological: She is alert. Skin: Findings: No rash. Psychiatric: Attention and Perception: Attention normal. She has a normal mood. Her speech and behavior is normal. Mood and thought content normal. She expresses no homicidal and no suicidal ideation. She expresses no suicidal plans and no homicidal plans. Vitals reviewed: Blood pressure 99/54, pulse (!) 43, height 167 cm, weight 63.1 kg. Normal [facility] TSH SerPl-aCncon 04-12-2024 TSH Qn 1.050 m[IU]/L Normal 0.510-4.300 [facility] Comment on above: Order Comment: Speci men Type: BLOOD SPECIMEN Ordering Facility: [facility] Address: [address] [place] [address] Result Comment: If t he patient is , TSH reference range varies by gestational period: First Trimester (weeks 9-12): 0.180-2.990 mIU/L Second Trimester: 0.110-3.980 mIU/L Third Trimester: 0.480-4.710 mIU/L Jonas Humphrey et al. A Practical Approach for the Verifications and Determination of Site- and Trimester-Specific Reference Intervals for Thyroid Function tests in . Thyroid, 2019:29:3:412-420. Adrien Strickland, et al. 2017 Guidelines of the [place] Thyroid Association for the Diagnosis and Management of Thyroid Disease during and the . Thyroid, 2017:27:3:315-389. Reference ranges were not locally established for this patient's age group. The normal values are based on the following source: Gerard W, Serafin V. Reference Ranges for Adults and Children: Pre-analytical Considerations. [facility] Performed By: #### 2 132-9, 2284-8, 52023-8 #### [facility] CLIA [id number] [address] Vit B12 SerPl-mCncon 04-12-2 024 Cobalamin (Vitamin B12) [Mass/Vol] 852 pg/mL Normal 232-1245 [facility] Comment on above: Order Comment: Speci men Type: BLOOD SPECIMEN Ordering Facility: [facility] Address: [address] [place] [address] [place] [address] Performed By: #### 2 132-9, 2284-8, 06320-5 #### [facility] CLIA [id number] [address] CNOVon 03-07-2024 CNOV Office Visit ([facility]) ----- EMILY GONSALEZ ([id number]) 5 F Date Time Provider Department 03/07/24 9:40 AM CALE JAY [facility] During your visit today, we recorded the following information about you: Temperature Pulse Blood pressure Weight 97.8 degrees 54/minute 103/68 62.1 kg Height 1.626 m Cale Jay MD 03/08/2024 10:22 AM Addendum Cale Jay MD [facility] Date of Evaluation: 03/07/2024 Patient Name: Emily Gonsalez : 2005 Chief Complaint: Patient presents with: Establish Care ASSESSMENT/PLAN: 1. Acne vulgaris - ICD9: 706.1, ICD10: L70.0 (primary diagnosis) Currently on azithromycin to 50 mg Wednesday, Wednesday, Wednesday weekly for 4 weeks. Acne has been improving. Prescription has been provided to her by her mother who is a nurse practitioner. Does not currently have a operating room specialist. - AZITHROMYCIN 500 MG TABLET 2. Special screening examination for viral disease - ICD9: V73.99, ICD10: Z11.59 Routine screening for patients greater than age 18 - HEPATITIS C ANTIBODY IA WITH CONFIRMATION 3. Screening for HIV (human immunodeficiency virus) - ICD9: V73.89, ICD10: Z11.4 Routine screening - HIV 1/2 COMBO WITH REFLEX TO DIFFERENTIATION 4. Screening for STD (sexually transmitted disease) - ICD9: V74.5, ICD10: Z11.3 Routine screening. Patient is not sexually active and does not want any other testing at this time. - GONORRHEA/CHLAMYDIA NAAT 5. Vegetarian diet - ICD9: V49.89, ICD10: Z78.9 - VITAMIN B12 - FOLATE, SERUM 6. Vitamin D deficiency - ICD9: 268.9, ICD10: E55.9 - VITAMIN D 25 HYDROXY 7. Abnormal laboratory test - ICD9: 796.4, ICD10: R89.9 - THYROID STIMULATING HORMONE 8. Blood donor - ICD9: V59.09, ICD10: Z52.008 Routinely donates blood will check for iron deficiency. - COMPLETE BLOOD COUNT AND DIFFERENTIAL - COMPREHENSIVE METABOLIC PANEL - IRON AND TIBC - FERRITIN 9. Change in weight - ICD9: 780.99, ICD10: R68.89 - THYROID STIMULATING HORMONE 10. Encounter for medical examination to establish care - ICD9: V70.9, ICD10: Z00.00 - Counseled on healthy diet and regular exercise Nursing Intake: There are no exam notes on file for this visit. Subjective Ms. Gonsalez is a 19 year old female who presents with the following complaint(s): HPI Here to establish care Mother who SKIP TENDER was managing care previously. Patient donated blood last week and would want to wait till further Does not eat meat, is vegetarian, only eats eggs and milk. Wants to get appropriate blood work for making sure she is not deficient. Nexplanon inserted 09/15/2022: Jaziel Conway APRN-[employer] Valid until 09/15/2025 Does not have a welding machine tender at this time, no concerns. Menstrual cycle is regular. Taking multiple supplements: Calcium, zinc and mag, iron, algae omega, Super B complex daily, ashwagandha, vitamin D3/K2, creatine, probiotic for skin. If she does not take her iron does get dizzy. Recommended by mother/trainers at [place] (studies at [employer] [facility] [employer]) Previously Donated blood every 2 months. Donates only in summer Acne: On Azithromycin for acne (also prescribed by mother) On Azithromycin 250mg three days a week for 4 weeks. Feels like her acne has been clearing Denies any other concerns. 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 Patient plays lacrosse and is generally active. Review of Systems All other systems reviewed and are negative. History reviewed. No pertinent past medical history. PAST SURGICAL HISTORY Procedure Laterality Date TOOTH EXTRACTION wisdom teeth FAMILY HISTORY Problem Relation Age of Onset other (ovarian mass) Mother 47 No Known Problems Father No Known Problems Brother No Known Problems Brother other (cabg) Maternal Grandmother other (skin surgery) Maternal Grandfather other (mechanical heart valve) Paternal Grandmother No Known Problems Paternal Grandfather Social History Tobacco Use Smoking status: Never Smokeless tobacco: Never Vaping Use Vaping Use: Never used Substance Use Topics Alcohol use: Never Drug use: Never Current Outpatient Medications Medication Sig Dispense Refill azithromycin (ZITHROMAX) 500 mg tablet Take 2 tabs //Wed x 4 weeks Calcium Carbonate-Vit D3-Min (CALCIUM 600 + MINERALS) 600 mg calcium- 200 unit tab Take 1 tablet by mouth once daily. vit B klkc-xiynm-bwauxgv-inosi (SUPER B-50 COMPLEX) 400 mcg-20 mg- 50 mg cap Take 1 tablet by mouth once daily. rmuzy-1s-qxw-epa-fish oil 198-223-897-50 mg cap Take 1 capsule by mouth once daily. Vegan ferrous sulfate (IRON) 325 mg (65 mg iron) tablet Take 1 tablet by mouth once daily. lactobacillus comb no.10 (PROBIOTIC) 20 billion cell cap Takes 40 BN ashwagandha root extract 300 mg tab Take 150 mg by mouth once daily. littxro-[id number]-[id number] (more content not included)... Normal [facility] XR Tibia and Fibula Viewson 02-11-2022 IMPRESSION: No acute radiographic abnormality. Merchandise Planner: DENZEL Transcribe Date/Time: Feb 11 2022 9:11P Dictated by : FIDEL GREENE MD This examination was interpreted and the report reviewed and electronically signed by: FIDEL GREENE MD on Feb 11 2022 9:13PM EST [id number] [facility] * * *Final Report* * * DATE OF EXAM: Feb 11 2022 9:06PM SILVERIO 5266 - XR TIBIA FIBULA 2V AP/LAT RT T / PROCEDURE REASON: pain to tib/fib after another player fell on her lower leg while playing lacross * * * * Physician Interpretation * * * * EXAMINATION: Radiographs of the right tibia and fibula CLINICAL HISTORY: Pain. COMPARISON: None PROCEDURE COMMENTS: XR TIBIA FIBULA 2V AP/LAT RT FINDINGS: FRACTURE: None JOINT ALIGNMENT: Normal LESION: None EFFUSION: None SOFT TISSUES: Normal OTHER FINDINGS: None. [facility] Fidel Greene M D - 02/11/2022 * * *Final Report* * * DATE OF EXAM: Feb 11 2022 9:06PM SILVERIO 5266 - XR TIBIA FIBULA 2V AP/LAT RT T / PROCEDURE REASON: pain to tib/fib after another player fell on her lower leg while playing lacross * * * * Physician Interpretation * * * * EXAMINATION: Radiographs of the right tibia and fibula CLINICAL HISTORY: Pain. COMPARISON: None PROCEDURE COMMENTS: XR TIBIA FIBULA 2V AP/LAT RT FINDINGS: FRACTURE: None JOINT ALIGNMENT: Normal LESION: None EFFUSION: None SOFT TISSUES: Normal OTHER FINDINGS: None. IMPRESSION: No acute radiographic abnormality. Merchandise Planner: PSCB Transcribe Date/Time: Feb 11 2022 9:11P Dictated by : FIDEL GREENE MD This examination was interpreted and the report reviewed and electronically signed by: FIDEL GREENE MD on Feb 11 2022 9:13PM EST [id number] [facility] Radiology Study observation (narrative) [facility] XR Tibia and Fibula ViewsOrd ered By: Fidel Greene on 02-11-2022 [facility] Work Phone: Vital Signs Date Time Vital Sign Value Performing Clinician Facility 05-18-2025 07:42-0400 Body height 165.1 cm Lasha Witt MD Work Phone: [facility] 05-18-2025 07:42-0400 Body mass index (BMI) [Ratio] 23.3 kg/m2 Lasha Witt MD Work Phone: [facility] 05-18-2025 07:42-0400 Body weight 63.5 kg Lasha Witt MD Work Phone: [facility] 05-18-2025 07:42-0400 Diastolic blood pressure 70 mm[Hg] Lasha Witt MD Work Phone: [facility] 05-18-2025 07:42-0400 Heart rate 58 /min Lasha Witt MD Work Phone: [facility] 05-18-2025 07:42-0400 Respiratory rate 16 /min Lasha Witt MD Work Phone: [facility] 05-18-2025 07:42-0400 SaO2% (BldA) [Mass fraction] 100 % Lasha Witt MD Work Phone: [facility] 05-18-2025 07:42-0400 Systolic blood pressure 108 mm[Hg] Lasha Witt MD Work Phone: [facility] 03-02-2025 09:11-0400 Body mass index (BMI) [Ratio] 24.13 kg/m2 Lasha Witt MD Work Phone: [facility] 03-02-2025 09:11-0400 Body weight 65.77 kg Lasha Witt MD Work Phone: [facility] 03-02-2025 09:11-0400 Diastolic blood pressure 70 mm[Hg] Lasha Witt MD Work Phone: [facility] 03-02-2025 09:11-0400 Heart rate 68 /min Lasha Witt MD Work Phone: [facility] 03-02-2025 09:11-0400 Respiratory rate 18 /min Lasha Witt MD Work Phone: [facility] 03-02-2025 09:11-0400 SaO2% (BldA) [Mass fraction] 98 % Lasha Witt MD Work Phone: [facility] 03-02-2025 09:11-0400 Systolic blood pressure 108 mm[Hg] Lasha Witt MD Work Phone: [facility] 10-11-2024 10:44-0500 Body mass index (BMI) [Ratio] 23.63 kg/m2 Lasha Witt MD Work Phone: [facility] 10-11-2024 10:44-0500 Body weight 64.41 kg Lasha Witt MD Work Phone: [facility] 10-11-2024 10:44-0500 Diastolic blood pressure 70 mm[Hg] Lasha Witt MD Work Phone: [facility] 10-11-2024 10:44-0500 Heart rate 70 /min Lasha Witt MD Work Phone: [facility] 10-11-2024 10:44-0500 Respiratory rate 18 /min Lasha Witt MD Work Phone: [facility] 10-11-2024 10:44-0500 SaO2% (BldA) [Mass fraction] 96 % Lasha Witt MD Work Phone: [facility] 10-11-2024 10:44-0500 Systolic blood pressure 104 mm[Hg] Lasha Witt MD Work Phone: [facility] 07-26-2024 11:41-0400 Body height 165.1 cm Lasha Witt MD Work Phone: [facility] 07-26-2024 11:41-0400 Body mass index (BMI) [Ratio] 23.13 kg/m2 Lasha Witt MD Work Phone: [facility] 07-26-2024 11:41-0400 Body weight 63.05 kg Lasha Witt MD Work Phone: [facility] 07-26-2024 11:41-0400 Diastolic blood pressure 70 mm[Hg] Lasha Witt MD Work Phone: [facility] 07-26-2024 11:41-0400 Heart rate 60 /min Lasha Witt MD Work Phone: [facility] 07-26-2024 11:41-0400 Respiratory rate 18 /min Lasha Witt MD Work Phone: [facility] 07-26-2024 11:41-0400 SaO2% (BldA) [Mass fraction] 96 % Lasha Witt MD Work Phone: [facility] 07-26-2024 11:41-0400 Systolic blood pressure 102 mm[Hg] Lasha Witt MD Work Phone: [facility] 03-07-2024 09:56-0400 Body height 162.6 cm Cale Jay MD Work Phone: [facility] 03-07-2024 09:56-0400 Body mass index (BMI) [Ratio] 23.52 kg/m2 Cale Jay MD Work Phone: [facility] 03-07-2024 09:56-0400 Body temperature 97.81 [degF] Cale Jay MD Work Phone: [facility] 03-07-2024 09:56-0400 Body weight 62.14 kg Cale Jay MD Work Phone: [facility] 03-07-2024 09:56-0400 Diastolic blood pressure 68 mm[Hg] Cale Jay MD Work Phone: [facility] 03-07-2024 09:56-0400 Heart rate 54 /min Cale Jay MD Work Phone: [facility] 03-07-2024 09:56-0400 SaO2% (BldA) [Mass fraction] 100 % Cale Jay MD Work Phone: [facility] 03-07-2024 09:56-0400 Systolic blood pressure 103 mm[Hg] Cale Jay MD Work Phone: [facility] 02-11-2022 20:24-0400 Body temperature 97.3 [degF] Christine Lange TRAY LINE WORKER-[employer] Work Phone: [facility] 02-11-2022 20:24-0400 Body weight 66.25 kg Christine Lange TRAY LINE WORKER-[employer] Work Phone: [facility] 02-11-2022 20:24-0400 Diastolic blood pressure 78 mm[Hg] Christine Lange TRAY LINE WORKER-[employer] Work Phone: [facility] [facility] 02-11-2022 20:24-0400 Heart rate 68 /min Christine Lange [employer] Work Phone: [facility] 02-11-2022 20:24-0400 SaO2% (BldA) [Mass fraction] 100 % Christine Lange [employer] Work Phone: [facility] 02-11-2022 20:24-0400 Systolic blood pressure 135 mm[Hg] Christine Lange [employer] WORK[employer] Work Phone: [facility] Encounters Encounter Date Encounter Type Care Provider Facility Start: 08-02-2025 End: 08-02-2025 Emergency department patient visit Kaleb Arango II, DO Facility:[facility] Start: 07-08-2025 End: 07-08-2025 Emergency department patient visit Physician Unavailable Facility:[facility] Start: 07-08-2025 End: 07-08-2025 ambulatory [facility] Start: 07-08-2025 End: 07-08-2025 Follow-up encounter [facility] Comment on above: Primary Care Coordin ator Ed Follow Up Start: 07-07-2025 End: 07-08-2025 Emergency department patient visit Physician Unavailable Facility:[facility] Start: 05-18-2025 End: 05-18-2025 Periodic preventive med est patient 18-39 yrs Lasha Witt MD Work Phone: [facility] [place] Comment on above: Annual physical exam (Primary Dx); Anxiety and depression; Screening for endocrine, nutritional, metabolic and immunity disorder; Acne vulgaris Start: 05-18-2025 End: 05-18-2025 ambulatory LASHA WITT Facility:[id number] Start: 05-18-2025 End: 05-18-2025 Patient encounter procedure Lasha Witt MD Work Phone: [facility] Start: 04-11-2025 End: 04-11-2025 Get Medical Advice Lasha Witt MD Work Phone: [facility] Comment on above: Medication Refills Start: 03-02-2025 End: 03-02-2025 ambulatory MD [facility] Start: 03-02-2025 End: 03-02-2025 Office outpatient visit 15 minutes Lasha Witt MD Work Phone: [facility] Comment on above: Anxiety and depressi on (Primary Dx) Start: 03-02-2025 End: 03-02-2025 ambulatory LASHA SNEHA Facility:[id number] Start: 12-31-2024 End: 01-01-2025 ambulatory [facility] Start: 12-31-2024 End: 01-01-2025 Follow-up encounter [facility] Cartwright [facility] Comment on above: Primary Care Coordin ator Ed Follow Up Start: 12-30-2024 End: 12-31-2024 Emergency department patient visit Karoline Barclay [employer] Facility:[facility] Start: 11-18-2024 End: 11-20-2024 Refill Lasha Witt MD Work Phone: [facility] Comment on above: Refill Request Start: 11-07-2024 End: 11-10-2024 Refill Lasha Witt MD Work Phone: [facility] Comment on above: Med Change Request Start: 11-01-2024 End: 11-01-2024 ambulatory Judah Clay PT, DPT Work Phone: [facility] Comment on above: Dizziness (Primary D x); Post-concussion headache Start: 10-17-2024 End: 10-17-2024 ambulatory Judah Berenshteyn PT, DPT Work Phone: [facility] Comment on above: Dizziness (Primary D x); Post-concussion headache Start: 10-16-2024 End: 10-16-2024 ambulatory Judahaleyda Burgoseyn PT, DPT Work Phone: [facility] Comment on above: Dizziness (Primary D x); Post-concussion headache Start: 10-13-2024 End: 10-13-2024 ambulatory Judahnohemi Burgoseyn PT, DPT Work Phone: [facility] Comment on above: Post-concussion head ache (Primary Dx); Dizziness Start: 10-11-2024 End: 10-12-2024 Patient encounter procedure Lasha Witt MD Work Phone: [facility] Comment on above: Requesting a letter for sports Start: 10-11-2024 End: 10-12-2024 ambulatory Lasha Witt MD Work Phone: [facility] Start: 10-11-2024 End: 10-11-2024 Office outpatient visit 25 minutes Lasha Witt MD Work Phone: [facility] Comment on above: Post-concussion head ache (Primary Dx) Start: 09-20-2024 End: 09-20-2024 Office outpatient visit 15 minutes Lasha Witt MD Work Phone: [facility] Comment on above: Anxiety and depressi on Start: 09-20-2024 End: 09-20-2024 ambulatory ALSHA WITT Facility:[id number] Start: 09-03-2024 End: 09-03-2024 Emergency department patient visit Karoline Barclay [employer] Facility:[facility] Start: 07-27-2024 End: 07-27-2024 ambulatory Lasha Witt MD Work Phone: [facility] Start: 07-27-2024 End: 07-27-2024 Patient encounter procedure Lasha Witt MD Work Phone: [facility] Comment on above: Doctor s Note Start: 07-26-2024 End: 07-26-2024 Office outpatient new 45 minutes Lasha Witt MD Work Phone: [facility] Comment on above: Anxiety and depressi on (Primary Dx) Start: 04-12-2024 End: 04-12-2024 ambulatory CALE JAY Facility:[facility] Start: 04-12-2024 End: 04-12-2024 ambulatory JAZIEL Milagro [facility] Start: 03-07-2024 End: 03-07-2024 Patient encounter procedure Cale Jay MD Work Phone: [facility] Comment on above: Acne vulgaris (Prima ry Dx); Special screening examination for viral disease; Screening for HIV (human immunodeficiency virus); Screening for STD (sexually transmitted disease); Vegetarian diet; Vitamin D deficiency; Abnormal laboratory test; Blood donor; Change in weight; Encounter for medical examination to establish care Start: 03-07-2024 End: 03-07-2024 Patient encounter status Cale Jay MD Work Phone: [facility] Start: 03-07-2024 End: 03-07-2024 ambulatory CALE JAY Facility:[facility] Start: 02-11-2022 End: 02-11-2022 Emergency department patient visit Christine Lange APRN-[employer] Work Phone: [facility] Comment on above: Injury of right lowe r leg, initial encounter (Primary Dx) Start: 10-03-2020 End: 10-03-2020 Patient encounter procedure Shayna Humphrey Work Phone: [facility] Comment on above: Suspected COVID-19 v irus infection (Primary Dx); Exposure to COVID-19 virus Start: 10-03-2020 End: 10-03-2020 Telemedicine consultation with patient Shayna (Anthony) Kam Work Phone: [facility] Procedures Date Procedure Procedure Detail Performing Clinician Start: 03-07-2024 Adult depression screening assessment Lasha Witt MD Work Phone: Start: 02-11-2022 Radiologic examinati on tibia & fibula 2 views Christine Lange [employer] Work Phone: Laboratory test resu lt abnormal Abnormal laboratory test Cale Jay MD Work Phone: Plan of Treatment Date Care Activity Detail Author Start: 06-10-2026 Tetanus Diphtheria a nd Pertussis Vaccines (7 - Td or Tdap) Tetanus Diphtheria and Pertussis Vaccines (7 - Td or Tdap) [facility] Start: 06-10-2026 Urine microalbumin profile DTaP,Tdap,Td Vaccine (7 - Td or Tdap) [facility] Start: 10-09-2025 End: 10-09-2025 Patient encounter procedure 10/09/2025 8:40 AM EST Office Visit [address] [phone] Lasha Witt MD [address] [place] [address] [phone] 5mo for [facility] mental health. [facility] Comment on above: 5mo for Recheck [facility]. Start: 06-25-2025 Influenza vaccination Influenza Vacc ine (#1) [facility] Start: 05-18-2025 End: 05-18-2025 Patient encounter procedure 05/18/2025 7:40 AM EDT Office Visit [address] [phone] Lasha Witt MD [address] [place] [address] [phone] cpe [facility] Comment on above: cpe Start: 03-07-2025 Anxiety Screening Anxiety Screening [facility] Start: 03-07-2025 Depression Screening Depression Scre ening [facility] Start: 03-02-2025 End: 03-02-2025 Patient encounter procedure 03/02/2025 9:20 AM EDT Office Visit [address] [phone] Lasha iWtt MD [address] [place] [address] recheck mental health 3mo [facility] Comment on above: recheck mental healt h 3mo Start: 11-01-2024 End: 11-01-2024 ambulatory 11/01/2024 7:15 AM EST OT/PT/Speech Visit [facility] Physical [facility] [address] [place] [id number] Judah Clay, PT, DPT [address] [place] [address] Concussion [facility] Physical [facility] Comment on above: Concussion Start: 10-31-2024 End: 10-31-2024 ambulatory 10/31/2024 8:00 AM EST OT/PT/Speech Visit [facility] Physical [facility] [address] [place] [address] Judah Clay, PT, DPT [address] [place] [address] Post-concussion headache [G44.309] [facility] Physical [facility] Comment on above: Post-concussion head ache [G44.309] Start: 10-17-2024 End: 10-17-2024 ambulatory 10/17/2024 7:15 AM EST OT/PT/Speech Visit [facility] Physical [facility] [address] [place] [address] Judah Clay, PT, DPT [address] [place] [address] Concussion [facility] Comment on above: Concussion Start: 10-13-2024 End: 10-13-2024 ambulatory 10/13/2024 10:30 AM EST OT/PT/Speech Visit [facility] [address] [place] [address] Gio Morris, PT, DPT Post-concussion headache [G44.309] [facility] Physical [facility] Comment on above: Post-concussion head ache [G44.309] Start: 09-20-2024 End: 09-20-2024 Patient encounter procedure 09/20/2024 11:40 AM EST [facility] [address] [phone] Lasha Witt MD [address] [place] [phone] 6week for Recheck mental health. [facility] Comment on above: 6week for Recheck [facility]. Start: 06-25-2024 Covid-19 Vaccine ( season) Covid-19 Vaccine ( season) [facility] Start: 06-25-2024 Influenza vaccination Influenza Vacc ine (#1) [facility] Start: 03-07-2024 End: 06-06-2024 25-hydroxyvitamin D3 [Mass/volume] in Serum or Plasma VITAMIN D 25 HYDROXY Lab Routine Vitamin D deficiency Expected: 03/07/2024, Expires: 06/06/2024 [facility] Comment on above: Expected: 03/07/2024 , Expires: 06/06/2024 Start: 03-07-2024 End: 06-06-2024 CBC W Auto Differential panel - Blood COMPLETE BLOOD COUNT AND DIFFERENTIAL Lab Routine Blood donor Expected: 03/07/2024, Expires: 06/06/2024 [facility] Comment on above: Expected: 03/07/2024 , Expires: 06/06/2024 Start: 03-07-2024 End: 06-06-2024 Chlamydia trachomatis+Neisseria gonorrhoeae DNA [Presence] in Unspecified specimen by ISIDRA with probe detection GONORRHEA/CHLAMYDIA NAAT Lab Routine Screening for STD (sexually transmitted disease) Expected: 03/07/2024, Expires: 06/06/2024 [facility] Comment on above: Expected: 03/07/2024 , Expires: 06/06/2024 Start: 03-07-2024 End: 06-06-2024 Cobalamin (Vitamin B12) [Mass/volume] in Serum or Plasma VITAMIN B12 Lab Routine Vegetarian diet Expected: 03/07/2024, Expires: 06/06/2024 [facility] Comment on above: Expected: 03/07/2024 , Expires: 06/06/2024 Start: 03-07-2024 End: 06-06-2024 Comprehensive metabolic 2000 panel - Serum or Plasma COMPREHENSIVE METABOLIC PANEL Lab Routine Blood donor Expected: 03/07/2024, Expires: 06/06/2024 [facility] Comment on above: Expected: 03/07/2024 , Expires: 06/06/2024 Start: 03-07-2024 End: 06-06-2024 Ferritin [Mass/volume] in Serum or Plasma FERRITIN Lab Routine Blood donor Expected: 03/07/2024, Expires: 06/06/2024 [facility] Comment on above: Expected: 03/07/2024 , Expires: 06/06/2024 Start: 03-07-2024 End: 06-06-2024 Folate [Mass/volume] in Serum or Plasma FOLATE, SERUM Lab Routine Vegetarian diet Expected: 03/07/2024, Expires: 06/06/2024 [facility] Comment on above: Expected: 03/07/2024 , Expires: 06/06/2024 Start: 03-07-2024 End: 06-06-2024 Hepatitis C virus Ab [Presence] in Serum HEPATITIS C ANTIBODY IA WITH CONFIRMATION Lab Routine Special screening examination for viral disease Expected: 03/07/2024, Expires: 06/06/2024 [facility] Work Phone: Comment on above: Expected: 03/07/2024 , Expires: 06/06/2024 Start: 03-07-2024 End: 06-06-2024 HIV 1+2 Ab [Presence] in Serum or Plasma by Immunoassay HIV 1/2 COMBO WITH REFLEX TO DIFFERENTIATION Lab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 05/11/2025 05/18/2025 INTAKE PAIN ASSESSMENT Are you having pain associated with your visit today? No No If pain assessment is 0, no action needed. If pain assessment is positive, please see assessment and plain. FOLLOW UP: Return in about 5 months (around 10/18/2025) for Recheck mental health. SUBJECTIVE: Emily Gonsalez is a 20 year old female presenting in the office today. CC: Patient presents with: Wellness: Pt presents for Annual Wellness Visit , pt is fasting for labs. Diet: generally healthy; eating out 2/week; denies any EtOH use Exercise: training daily (cardiovascular and resistance) Sleep: ~8 hours Dental Exam: biannually Eye Exam: Gloria Cancer Screening Breast: NA. Cervical: NA. Colon: NA. Lung: NA. Immunization Influenza: Recommend during respiratory season. Pneumococcal: NA SARS-CoV 2: Recommend during respiratory season. Tdap/Td: Up To Date. HPV: Up To Date. Doing well with fluoxetine. Feeling feelings. Has a support system in mother and team members. PHYSICAL EXAMINATION: BP 108/70 Pulse 58 Resp 16 Ht 5' 5 (1.65m) Wt 140 lb (63.5kg) SpO2 100% BMI 23.30 kg/(m^2). Physical Exam Vitals reviewed. Constitutional: Appearance: Normal appearance. HENT: Head: Normocephalic and atraumatic. Right Ear: Tympanic membrane and ear canal normal. Left Ear: Tympanic membrane and ear canal normal. Mouth/Throat: Mouth: Mucous membranes are moist. Pharynx: Oropharynx is clear. Eyes: Extraocular Movements: Extraocular movements intact. Pupils: Pupils are equal, round, and reactive to light. Cardiovascular: Rate and Rhythm: Normal rate. Pulmonary: Effort: Pulmonary effort is normal. Breath sounds: Normal breath sounds. Abdominal: General: Bowel sounds are normal. Palpations: Abdomen is soft. Musculoskeletal: Right lower leg: No edema. Left lower leg: No edema. Skin: Findings: Rash (facial acne) present. Neurological: Mental Status: She is alert and oriented to person, place, and time. Psychiatric: Mood and Affect: Mood normal. Speech: Speech normal. Behavior: Behavior normal. documented in this encounter [facility] 04-11-2025 Telephone encounter Note Rx written February 2025 for 90 days with one refill. Will send new Rx during physical in April. [facility] 04-11-2025 Miscellaneous Notes Rx written February 2025 for 90 days with one refill. Will send new Rx during physical in April. documented in this encounter [facility] 03-02-2025 Note On 03/02/2025 at 1330. I performed Nexplanon insertion and Nexplanon removal with supervision. The supervising provider for this procedure was Dr. Reba Grubbs . The procedure was successfully performed. There were not complications. [facility] 03-02-2025 Note Patient ID: Emily Gonsalez is a 20 y.o. female. Her chief complaint(s) include: Procedure (Removal and re-insertion ) Assessment 1. Encounter for removal and reinsertion of Nexplanon 2. Encounter for test, result unknown Plan Emily was seen today for procedure. Diagnoses and associated orders for this visit: Encounter for removal and reinsertion of Nexplanon - POCT urine HCG - Nexplanon Removal w/Insertion - etonogestrel (NEXPLANON) subdermal implant 68 mg Encounter for test, result unknown - Cancel: POCT urine HCG Emily Gonsalez is a 20 year old currently using nexplanon for contraception and menstrual management being seen today for removal and reinsertion. Counseled on Nexplanon in depth including potential risks, benefits, expected/potential side effects and alternative methods. Counseled on bleeding profile, insertion & removal procedures. Nexplanon removed and reinserted without issue and patient tolerated well. Reviewed safe sex practices and screening recommendations. Reviewed recommendation for pap smear for screening for cervical cancer beginning at age 2121 years old. Subjective HPI Comments: Emily Gonsalez is a 20 y.o. currently using nexplanon for contraception & menstrual management being seen today for removal & reinsertion. Using nexplanon for contraception and menstrual management Placed 08/2022. Patient notified prior to appt that not yet due for removal but reports d/t college schedule needs removed now. 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 Presents today with her mother. Mom is SKIP TENDER. Emily is accompanied by their mother. Review of Systems All other systems reviewed and are negative. Objective Vital Signs 03/02/25 1335 BP: 118/60 Pulse: 62 Weight: 65.4 kg There is no height or weight on file to calculate BMI. Physical Exam Constitutional: She appears well. She is active. No distress. HENT: Head: Atraumatic. Nose: Nose normal. Mouth/Throat: Mucous membranes are moist. Pulmonary/Chest: Effort normal. Neurological: She is alert. Skin: Skin is warm. Findings: No rash. Vitals reviewed: Blood pressure 118/60, pulse 62, weight 65.4 kg. Last Result POCT urine HCG Collection Time: 03/02/25 2:12 PM Result Value Ref Range hCG Urine POCT Negative Negative Control Line *Present Clear Background *Present LOT # [id number] [facility] 03-02-2025 Note HNO ID: [id number] Author: LASHA WITT MD Service: ? Author Type: Physician Type: Progress Notes Filed: 03/02/2025 10:01 Note Text: ASSESSMENT AND PLAN: Problem List Items Addressed This Visit Psychiatry Anxiety and depression - Primary Overview Patient to schedule appointment for CBT. Continue Prozac 10 mg daily. Discussed supportive care including diet, exercise, and sufficient sleep. Relevant Medications FLUoxetine (PROZAC) 10 mg capsule Questions and concerns addressed in office. AVS provided. FOLLOW UP: Return in about 8 weeks (around 04/27/2025) for Annual Physical. SUBJECTIVE: Emily Gonsalez is a 20 year old female presenting in the office today. CC: Patient presents with: Depression Anxiety: Pt presents for 3 Month F/U on Anxiety and Depression. Medications were reviewed and verified. 02/23/2025 03/02/2025 INTAKE PAIN ASSESSMENT Are you having pain associated with your visit today? No No If pain assessment is 0, no action needed. If pain assessment is positive, please see assessment and plain. HPI: White female with CMHx of anxiety and depression presents for follow up. Finished the spring and taking one class in the evening. Exercising daily, lifting and running. Sleeping well; getting 8-9 hours of sleep. Appreciating benefit from Prozac. If she forgets medication for multiple days, appreciates feeling bummed and down. Headaches have improved. Denies any recent head injuries. 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 PHYSICAL EXAMINATION: BP 108/70 Pulse 68 Resp 18 Wt 145 lb (65.8kg) SpO2 98% Physical Exam Vitals reviewed. Constitutional: Appearance: Normal appearance. HENT: Head: Normocephalic and atraumatic. Cardiovascular: Rate and Rhythm: Normal rate. Pulmonary: Effort: Pulmonary effort is normal. Breath sounds: Normal breath sounds. Neurological: Mental Status: She is alert. Psychiatric: Mood and Affect: Mood normal. Speech: Speech normal. Behavior: Behavior normal. [facility] 03-02-2025 History of Presen t illness Narrative ASSESSMENT & PLAN: Problem List Items Addressed This Visit Psychiatry Anxiety and depression - Primary Overview Patient to schedule appointment for CBT. Continue Prozac 10 mg daily. Discussed supportive care including diet, exercise, and sufficient sleep. Relevant Medications FLUoxetine (PROZAC) 10 mg capsule Questions and concerns addressed in office. AVS provided. FOLLOW UP: Return in about 8 weeks (around 04/27/2025) for Annual Physical. SUBJECTIVE: Emily Gonsalez is a 20 year old female presenting in the office today. CC: Patient presents with: Depression Anxiety: Pt presents for 3 Month F/U on Anxiety and Depression. Medications were reviewed and verified. 02/23/2025 03/02/2025 INTAKE PAIN ASSESSMENT Are you having pain associated with your visit today? No No If pain assessment is 0, no action needed. If pain assessment is positive, please see assessment and plain. HPI: White female with CMHx of anxiety and depression presents for follow up. Finished the spring and taking one class in the evening. Exercising daily, lifting and running. Sleeping well; getting 8-9 hours of sleep. Appreciating benefit from Prozac. If she forgets medication for multiple days, appreciates feeling bummed and down. Headaches have improved. Denies any recent head injuries. 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 PHYSICAL EXAMINATION: BP 108/70 Pulse 68 Resp 18 Wt 145 lb (65.8kg) SpO2 98% Physical Exam Vitals reviewed. Constitutional: Appearance: Normal appearance. HENT: Head: Normocephalic and atraumatic. Cardiovascular: Rate and Rhythm: Normal rate. Pulmonary: Effort: Pulmonary effort is normal. Breath sounds: Normal breath sounds. Neurological: Mental Status: She is alert. Psychiatric: Mood and Affect: Mood normal. Speech: Speech normal. Behavior: Behavior normal. documented in this encounter [facility] 12-31-2024 Note HNO ID: [id number] Author: RADHA CARTWRIGHT RN Service: ? Author Type: Registered Nurse Type: Progress Notes Filed: 01/01/2025 14:45 Note Text: [facility] Chart Review Provider Action/FYI er Patient identified by name and date of :YES Patient identified for Care Coordination from: Notify ED Discharge report Was patient contacted?: No: Does not meet HEDIS measure chronic condition requirements Patient discharged from [facility] on 12/31/2024 ED Provider Discharge summary: Patient is an alert, oriented 19-year-old female presenting to the emergency department with complaints of headache and nausea. This has been persistent and has progressively increased over the past week. Patient was playing lacrosse last week when she was hit in the head by another player. Patient reports that she is also taking blows to the side of her face. On evaluation PERRLA noted. EOM's grossly intact however she does get increased nausea and dizziness with the movement of her eyes. There is swelling noticed to the left lower jawline, tenderness to palpation to this area. Patient is unable to open jaw very wide. Heart sounds are S1-S2. Lung sounds are clear throughout. She does report that she is followed up with the concussion clinic.Patient has photophobia and phonophobia. I did discuss swabs for flu andCOVID, basic labs, saline bolus, and CT scan of the brain and facial bones. Patient is very agreeable with this plan of care. Plan to start patient with dexamethasone, acetaminophen, Zofran, and Benadryl all IV. All orders placed accordingly. Radha Cartwright RN [facility] 12-31-2024 History of Presen t illness Narrative [facility] Chart Review Provider Action/FYI er Patient identified by name and date of :YES Patient identified for Care Coordination from: Notify ED Discharge report Was patient contacted?: No: Does not meet HEDIS measure chronic condition requirements Patient discharged from [facility] on 12/31/2024 ED Provider Discharge summary: Patient is an alert, oriented 19-year-old female presenting to the emergency department with complaints of headache and nausea. This has been persistent and has progressively increased over the past week. Patient was playing lacrosse last week when she was hit in the head by another player. Patient reports that she is also taking blows to the side of her face. On evaluation PERRLA noted. EOM's grossly intact however she does get increased nausea and dizziness with the movement of her eyes. There is swelling noticed to the left lower jawline, tenderness to palpation to this area. Patient is unable to open jaw very wide. Heart sounds are S1-S2. Lung sounds are clear throughout. She does report that she is followed up with the concussion clinic. Patient has photophobia and phonophobia. I did discuss swabs for flu and COVID, basic labs, saline bolus, and CT scan of the brain and facial bones. Patient is very agreeable with this plan of care. Plan to start patient with dexamethasone, acetaminophen, Zofran, and Benadryl all IV. All orders placed accordingly. Radha Cartwright RN documented in this encounter [facility] 12-31-2024 Note Patient Outreach (MR ARDON) EMILY GONSALEZ ([id number]) 5 F Date Time Provider Department 12/31/24 RADHA CARTWRIGHT During your visit today, we recorded the following information about you: Radha Cartwright RN 01/01/2025 2:45 PM Signed [facility] Chart Review Provider Action/FYI er Patient identified by name and date of :YES Patient identified for Care Coordination from: Notify ED Discharge report Was patient contacted?: No: Does not meet HEDIS measure chronic condition requirements Patient discharged from [facility] on 12/31/2024 ED Provider Discharge summary: Patient is an alert, oriented 19-year-old female presenting to the emergency department with complaints of headache and nausea. This has been persistent and has progressively increased over the past week. Patient was playing lacrosse last week when she was hit in the head by another player. Patient reports that she is also taking blows to the side of her face. On evaluation PERRLA noted. EOM's grossly intact however she does get increased nausea and dizziness with the movement of her eyes. There is swelling noticed to the left lower jawline, tenderness to palpation to this area. Patient is unable to open jaw very wide. Heart sounds are S1-S2. Lung sounds are clear throughout. She does report that she is followed up with the concussion clinic. Patient has photophobia and phonophobia. I did discuss swabs for flu and COVID, basic labs, saline bolus, and CT scan of the brain and facial bones. Patient is very agreeable with this plan of care. Plan to start patient with dexamethasone, acetaminophen, Zofran, and Benadryl all IV. All orders placed accordingly. Radha Cartwright RN Allergies As of Date: 12/31/2024 (No Known Allergies) Date Reviewed: 10/11/2024 Reviewed by: Lindsay Mills LPN - Fully Assessed Reason for Visit: [employer] Ed Follow Up [9466] Prescriptions as of 01/01/2025 - FLUoxetine (PROZAC) 10 mg capsule Take 1 capsule by mouth daily with breakfast. - amantadine HCl (SYMMETREL) 100 mg capsule Take 100 mg by mouth two times a day. - rizatriptan (MAXALT) 10 mg tablet Take 1 tablet (10 mg) by mouth as directed. at onset of headache. May repeat after 2 hours. Do not exceed 30 mg per day. - etonogestrel (NEXPLANON) subdermal implant 68 mg Inject 68 mg subcutaneously one time only. Problem List As Of Date 12/31/[address]on in [address] [Z97.5] 04/12/2024 Anxiety and depression [F41.9, F32.A] 09/20/2024 Post-concussion headache [G44.309] 10/16/2024 Dizziness [R42] 10/16/2024 Encounter Status:Closed by RADHA CARTWRIGHT on 01/01/25 [facility] 11-01-2024 Note HNO ID: [id number] Author: JUDAH CLAY PT, DADA Service: ? Author Type: Physical Therapist Type: Progress Notes Filed: 11/01/2024 08:01 Note Text: Episode Visit Count: 4 Therapist That Will Accept/Oversee The Plan Of Care: Judah Clay DPT Start of Care Date: 10/13/24 Onset Date: 08/30/24 Patient Identified by Name and Date of : Yes REHABILITATION AND SPORTS THERAPY PHYSICAL THERAPY DISCONTINUANCE OF CARE PLAN OF CARE UPDATE: Assessment: Emily Gonsalez is discontinued from Physical Therapy services due to goal achievement.. Patient was seen for 4 visits from Start of Care Date: 10/13/24 to 11/01/2024 and treatment included: Neuromuscular re-education and Therapeutic activities. The patient is asymptomatic and has been cleared to return to practice. She has been advised to discontinue habituation exercises that no longer provoke symptoms. She is aware to contact me with any concerns/questions regarding her care. Goals for Episode of Care: established 10/13/24 Update 11/01/23: Patient will reduce her Graded Symptom Checklist to below 10 points to indicate reduced subjective impairment. Status: Met - scored 0 points Patient will report at least 75% improvement in her headache frequency and severity. Status: Met - no longer has headaches Cervical spine assessment to be performed. Status: Met [place] in home exercise program. Status: Met Patient Goals: Return to school and sport SUBJECTIVE: Pt states that she took the [employer] test last week and passed - is cleared for return to full practice. She states that she has not had a headache in a while. She still has very mild photophobia/phonophobia with loud noise and sudden bright lights, but otherwise has no issues. She currently denies pain. She has been doing her exercises regularly.. GRADED SYMPTOM CHECKLIST Headache: 0 Pressure in the head: 0 Neck pain: 0 Nausea or vomitin Dizziness: 0 Blurred vision: 0 Balance problems: 0 Sensitivity to light: 0 Sensitivity to noise: 0 Feeling slowed down: 0 Feeling like in a fo Don't feel right: 0 Difficulty concentratin Difficulty rememberin Fatigue or low energy: 0 Confusion: 0 Drowsiness: 0 Trouble falling asleep: 0 More emotional: 0 Irritability: 0 Sadness: 0 Nervous or anxious: 0 Sleeping more than usual: 0 Sleeping less than usual: 0 Difficulty sleeping soundly: 0 Ringing in the ears: 0 Numbness or tinglin TOTAL SCORE: 0 TOTAL # OF SYMPTOMS: 0 NUMBER OF SYMPTOMS: 0 Physical Activity Worsen Symptoms: Yes Mental Activity Worsen Symptoms: Yes Pain: Pain Pain Level: 0 PROMIS Scales 10/12/2024 Higher is Better Phys Func - Score 48 (within normal limits) Phys Func - Percentile 42 Self-Eff Symptom - Score 41 (Average) Self-Eff Symptom - Percentile 18 T-scores: mean of general population = 50. 5 points is clinically meaningfully difference Percentiles provide an indication of how the patient's score ranks in relation to the general population. Higher percentile rankings indicate better function/quality of life. 50th percentile is the average of the general population and indicates half of respondents had a worse score. OBJECTIVE MEASURES WITH LEVEL OF FUNCTION: Cervical Spine ROM Cervical Flexion AROM (degrees) : 56 Degrees Cervical Extension AROM (degrees) : 75 Degrees Cervical Side-Bend Right AROM (degrees): 42 Degrees Cervical Side-Bend Left AROM (degrees) : 41 Degrees Cervical Rotation Right AROM (degrees) : 72 Degrees Cervical Rotation Left AROM (degrees) : 72 Degrees UE and Cervical Strength Deep Neck Flexor Endurance: 15.25 NEYMAR - Balance Error Scoring System Dominant LE: Right FIRM Double Leg Stance (feet together): 0 FIRM Single Leg Stance (non-dominant foot): 0 FIRM Tandem Stance (non-dom foot in back): 0 FIRM TOTAL : 0 FOAM Double Leg Stance (feet together): 0 FOAM Single Leg Stance (non-dominant foot): 0 FOAM Tandem Stance (non-dom foot in back): 2 FOAM TOTAL: 2 NEYMAR Total Score: 2 TREATMENT: Re-evaluation: Performed objective measures and obtained subjective report of pt's function to compare to evaluation date, review progress towards goals, and determine need for further PT intervention. Discontinued current episode of care based on today's findings. Billing * Re-Evaluation : 1 Unit Skilled Treatment Time Minutes (timed and untimed codes): 19 Total Session Time (minutes): 19 Session Start Time : 716 Session Stop Time : 735 Judah Clay PT, DPT [facility] 11-01-2024 History of Presen t illness Narrative Episode Visit Count: 4 Therapist That Will Accept/Oversee The Plan Of Care: Judah Clay DPT Start of Care Date: 10/13/24 Onset Date: 08/30/24 Patient Identified by Name and Date of : Yes REHABILITATION AND SPORTS THERAPY PHYSICAL THERAPY DISCONTINUANCE OF CARE PLAN OF CARE UPDATE: Assessment: Emily Gonsalez is discontinued from Physical Therapy services due to goal achievement.. Patient was seen for 4 visits from Start of Care Date: 10/13/24 to 11/01/2024 and treatment included: Neuromuscular re-education and Therapeutic activities. The patient is asymptomatic and has been cleared to return to practice. She has been advised to discontinue habituation exercises that no longer provoke symptoms. She is aware to contact me with any concerns/questions regarding her care. Goals for Episode of Care: established 10/13/24 Update 11/01/23: Patient will reduce her Graded Symptom Checklist to below 10 points to indicate reduced subjective impairment. Status: Met - scored 0 points Patient will report at least 75% improvement in her headache frequency and severity. Status: Met - no longer has headaches Cervical spine assessment to be performed. Status: Met [place] in home exercise program. Status: Met Patient Goals: Return to school and sport SUBJECTIVE: Pt states that she took the IMP[employer] test last week and passed - is cleared for return to full practice. She states that she has not had a headache in a while. She still has very mild photophobia/phonophobia with loud noise and sudden bright lights, but otherwise has no issues. She currently denies pain. She has been doing her exercises regularly.. GRADED SYMPTOM CHECKLIST Headache: 0 Pressure in the head: 0 Neck pain: 0 Nausea or vomitin Dizziness: 0 Blurred vision: 0 Balance problems: 0 Sensitivity to light: 0 Sensitivity to noise: 0 Feeling slowed down: 0 Feeling like in a fo Don't feel right: 0 Difficulty concentratin Difficulty rememberin Fatigue or low energy: 0 Confusion: 0 Drowsiness: 0 Trouble falling asleep: 0 More emotional: 0 Irritability: 0 Sadness: 0 Nervous or anxious: 0 Sleeping more than usual: 0 Sleeping less than usual: 0 Difficulty sleeping soundly: 0 Ringing in the ears: 0 Numbness or tinglin TOTAL SCORE: 0 TOTAL # OF SYMPTOMS: 0 NUMBER OF SYMPTOMS: 0 Physical Activity Worsen Symptoms: Yes Mental Activity Worsen Symptoms: Yes Pain: Pain Pain Level: 0 PROMIS Scales 10/12/2024 Higher is Better Phys Func - Score 48 (within normal limits) Phys Func - Percentile 42 Self-Eff Symptom - Score 41 (Average) Self-Eff Symptom - Percentile 18 T-scores: mean of general population = 50. 5 points is clinically meaningfully difference Percentiles provide an indication of how the patient's score ranks in relation to the general population. Higher percentile rankings indicate better function/quality of life. 50th percentile is the average of the general population and indicates half of respondents had a worse score. OBJECTIVE MEASURES WITH LEVEL OF FUNCTION: Cervical Spine ROM Cervical Flexion AROM (degrees) : 56 Degrees Cervical Extension AROM (degrees) : 75 Degrees Cervical Side-Bend Right AROM (degrees): 42 Degrees Cervical Side-Bend Left AROM (degrees) : 41 Degrees Cervical Rotation Right AROM (degrees) : 72 Degrees Cervical Rotation Left AROM (degrees) : 72 Degrees UE and Cervical Strength Deep Neck Flexor Endurance: 15.25 NEYMAR - Balance Error Scoring System Dominant LE: Right FIRM Double Leg Stance (feet together): 0 FIRM Single Leg Stance (non-dominant foot): 0 FIRM Tandem Stance (non-dom foot in back): 0 FIRM TOTAL : 0 FOAM Double Leg Stance (feet together): 0 FOAM Single Leg Stance (non-dominant foot): 0 FOAM Tandem Stance (non-dom foot in back): 2 FOAM TOTAL: 2 NEYMAR Total Score: 2 TREATMENT: Re-evaluation: Performed objective measures and obtained subjective report of pt's function to compare to evaluation date, review progress towards goals, and determine need for further PT intervention. Discontinued current episode of care based on today's findings. Billing * Re-Evaluation : 1 Unit Skilled Treatment Time Minutes (timed and untimed codes): 19 Total Session Time (minutes): 19 Session Start Time : 716 Session Stop Time : 735 Judah Clay PT, DPT documented in this encounter [facility] 10-17-2024 History of Presen t illness Narrative Program_ID:[id number] Access Code: [email or web address] URL: [email or web address] Date: 10-17-2024 Prepared By: JUDAH CLAY Program Notes Exercises - Standing Shoulder Row with Anchored Resistance - 1 x daily - 7 x weekly - 2 sets - 12-15 reps - Shoulder External Rotation and Scapular Retraction with Resistance - 1 x daily - 7 x weekly - 2 sets - 12-15 reps - Shoulder Horizontal Abduction with Anchored Resistance - 1 x daily - 7 x weekly - 2 sets - 12-15 reps - Seated Gaze Stabilization with Head Nod - 1 x daily - 7 x weekly - 3 sets - reps - Seated Gaze Stabilization with Head Rotation - 1 x daily - 7 x weekly - 3 sets - reps - Seated Cervical Sidebending Stretch - 2 x daily - 7 x weekly - 3 sets - reps - Seated Levator Scapulae Stretch - 2 x daily - 7 x weekly - 3 sets - reps - Standing Isometric Chin Tuck with Manual Resistance at Wall - 2 x daily - 7 x weekly - 1 sets - 10 reps Episode Visit Count: 3 Therapist That Will Accept/Oversee The Plan Of Care: Judah Clay DPT Start of Care Date: 10/13/24 Onset Date: 08/30/24 Patient Identified by Name and Date of : Yes REHABILITATION AND SPORTS THERAPY PHYSICAL THERAPY TREATMENT NOTE ASSESSMENT: Emily Gonsalez tolerated the session with decreased symptoms. She demonstrated significant progress with today's activities, tolerating high-level balance and dual tasking without increase in headache or dizziness. She required minimal cues for proper exercise technique. The patient will continue to benefit from ongoing skilled physical therapy to progress toward set goals. PLAN FOR NEXT VISIT: Continue progressing habituation and postural exercises as tolerated. SUBJECTIVE: Pt reports that the VOR exercises are getting easier at home - has quicker recovery time. She was able to play pool and other games in her basement with family - had minimal increase in symptoms, which resolved when stopping the activity for a brief period of time. Pain: Pain Pain Level: 4 Pain Location: Head - Left, Head - Right Post Treatment Pain Post Treatment Pain Level: 2 Post Treatment Pain Location: Head - Left, Head - Right OBJECTIVE MEASURES WITH LEVEL OF FUNCTION: Joint Position Error Testing: L rotation: 4.5deg, 3deg, 6deg R rotation: 2.5deg, 3deg, 6deg TREATMENT: Neuromuscular Re-Education: 1: Obtained subjective info to inform today's interventions 2: Joint position error testing. Educated on the role of the cervical spine in proprioception/balance. 3: Cervical proprioception training with laser. Pt tasked with looking at a target and then moving head toward the target. Performed 1 set of 5 rounds seated and one standing NBOS on Airex using 7 targets on the wall. 4: Seated upper trap and levator scap stretches x20 each B 5: Seated VORx2 x30 horizontally and vertically - progressed HEP with this exercise 6: Standing VORx2 x45 horizontally with an open background. 7: Standing horizontal and vertical VOR cancelation in front of open background x5 and x8 each, set at 60bpm 8: Standing cervical nods with back of head against wall 10x5 holds 9: Ambulation with ball self-tosses to promote VOR cancelation while playing geography game. 10: WBOS on Bosu. BlazePods set up on plinth at thigh level (8 pods). Pt tasked with hitting red targets with R hand, blue targets with L hand, and green targets by clapping and then hitting. Performed 3 rounds. 11: Updated HEP Skilled Intervention: Education in proprioceptive/kinesthetic awareness during standing, reaching, and dynamic activities. Reviewed and educated patient on additions/changes for home program Correct performance of home program was facilitated with verbal, visual, and tactile cueing. Billing Neuromuscular Re-Education Treatment Minutes: 41 Skilled Treatment Time Minutes (timed and untimed codes): 41 Total Session Time (minutes): 41 Session Start Time : 714 Session Stop Time : 075 Judah Clay PT, DPT documented in this encounter [facility] 10-17-2024 Note HNO ID: [id number] Author: JUDAH CLAY PT, DPT Service: ? Author Type: Physical Therapist Type: Progress Notes Filed: 10/17/2024 08:00 Note Text: Episode Visit Count: 3 Therapist That Will Accept/Oversee The Plan Of Care: Judah Clay DPT Start of Care Date: 10/13/24 Onset Date: 08/30/24 Patient Identified by Name and Date of : Yes REHABILITATION AND SPORTS THERAPY PHYSICAL THERAPY TREATMENT NOTE ASSESSMENT: Emily Gonsalez tolerated the session with decreased symptoms. She demonstrated significant progress with today's activities, tolerating high-level balance and dual tasking without increase in headache or dizziness. She required minimal cues for proper exercise technique. The patient will continue to benefit from ongoing skilled physical therapy to progress toward set goals. PLAN FOR NEXT VISIT: Continue progressing habituation and postural exercises as tolerated. SUBJECTIVE: Pt reports that the VOR exercises are getting easier at home - has quicker recovery time. She was able to play pool and other games in her basement with family - had minimal increase in symptoms, which resolved when stopping the activity for a brief period of time. Pain: Pain Pain Level: 4 Pain Location: Head - Left, Head - Right Post Treatment Pain Post Treatment Pain Level: 2 Post Treatment Pain Location: Head - Left, Head - Right OBJECTIVE MEASURES WITH LEVEL OF FUNCTION: Joint Position Error Testing: L rotation: 4.5deg, 3deg, 6deg R rotation: 2.5deg, 3deg, 6deg TREATMENT: Neuromuscular Re-Education: 1: Obtained subjective info to inform today's interventions 2: Joint position error testing. Educated on the role of the cervical spine in proprioception/balance. 3: Cervical proprioception training with laser. Pt tasked with looking at a target and then moving head toward the target. Performed 1 set of 5 rounds seated and one standing NBOS on Airex using 7 targets on the wall. 4: Seated upper trap and levator scap stretches x20 each B 5: Seated VORx2 x30 horizontally and vertically - progressed HEP with this exercise 6: Standing VORx2 x45 horizontally with an open background. 7: Standing horizontal and vertical VOR cancelation in front of open background x5 and x8 each, set at 60bpm 8: Standing cervical nods with back of head against wall 10x5 holds 9: Ambulation with ball self-tosses to promote VOR cancelation while playing geography game. 10: WBOS on Bosu. BlazePods set up on plinth at thigh level (8 pods). Pt tasked with hitting red targets with R hand, blue targets with L hand, and green targets by clapping and then hitting. Performed 3 rounds. 11: Updated HEP Skilled Intervention: Education in proprioceptive/kinesthetic awareness during standing, reaching, and dynamic activities. Reviewed and educated patient on additions/changes for home program Correct performance of home program was facilitated with verbal, visual, and tactile cueing. Billing Neuromuscular Re-Education Treatment Minutes: 41 Skilled Treatment Time Minutes (timed and untimed codes): 41 Total Session Time (minutes): 41 Session Start Time : 0715 Session Stop Time : 0756 Judah Clay, PT, DPT [facility] 10-16-2024 History of Presen t illness Narrative Program_ID:[id number] Access Code: [email or web address] URL: [email or web address] Date: 10-16-2024 Prepared By: JUDAH CLAY Program Notes Exercises - Standing Shoulder Row with Anchored Resistance - 1 x daily - 7 x weekly - 2 sets - 12-15 reps - Shoulder External Rotation and Scapular Retraction with Resistance - 1 x daily - 7 x weekly - 2 sets - 12-15 reps - Shoulder Horizontal Abduction with Anchored Resistance - 1 x daily - 7 x weekly - 2 sets - 12-15 reps - Seated Gaze Stabilization with Head Nod - 1 x daily - 7 x weekly - 3 sets - reps - Seated Gaze Stabilization with Head Rotation - 1 x daily - 7 x weekly - 3 sets - reps Episode Visit Count: 2 Therapist That Will Accept/Oversee The Plan Of Care: Judah Clay DPT Start of Care Date: 10/13/24 Onset Date: 08/30/24 Patient Identified by Name and Date of : Yes REHABILITATION AND SPORTS THERAPY PHYSICAL THERAPY TREATMENT NOTE ASSESSMENT: Emily Gonsalez tolerated the session with no issues. She demonstrated negative testing for BPPV. She had quite a bit of tenderness on the L side of her cervical spine, L suboccipital musculature, and L upper trapezius. Cervical rotation to the L was also limited. She had quick recovery following seated VORx1 exercises - prescribed these for habituation. The patient will continue to benefit from ongoing skilled physical therapy to progress toward set goals. PLAN FOR NEXT VISIT: Progress habituation and postural/cervical musculature strengthening as tolerated. Potentially try Harper Treadmill Test. SUBJECTIVE: Pt states that she was sitting on the couch on Wednesday for about 30 minutes, got up and her eyes went black and she slowly went down to the ground. She denies hitting her head - lowered herself down slowly. She has never had syncopal episodes prior to her concussion. She went to a chiropractor morning of last week and had her neck manipulated. Otherwise, no changes. Pt states that she does get dizzy every time she gets out of bed. Pain: OBJECTIVE MEASURES WITH LEVEL OF FUNCTION: Oculomotor Testing Fixation Removed Spontaneous Nystagmus: (very low-grade R-beating) Gaze Evoked Nystagmus: Present Right Gaze : Right beat Left Gaze : No nystagmus Up Gaze : No nystagmus (dizzy) Down Gaze : No nystagmus Positional Testing Positional Test Comments: All positional testing was negative for BPPV. Square waveform nystagmus noted throughout positional tests. Pt reported transient symptoms of fogginess in R roll, L DH, and L roll test positions - resolved within 10 seconds. Cervical Spine ROM Cervical ROM : Measurement AROM Cervical Flexion AROM (degrees) : 40 Degrees Cervical Extension AROM (degrees) : 60 Degrees Cervical Side-Bend Right AROM (degrees): 30 Degrees Cervical Side-Bend Left AROM (degrees) : 32 Degrees Cervical Rotation Right AROM (degrees) : 66 Degrees Cervical Rotation Left AROM (degrees) : 56 Degrees Upper Cervical AROM: Grossly WNL - mild restriction to the R UE and Cervical Strength Strength Tested: Cervical Deep Neck Flexor Endurance: 10.25 TREATMENT: Neuromuscular Re-Education: 1: Obtained the pt's subjective report to inform today's interventions 2: Performed vestibular testing as noted above 3: Seated B shoulder ER with chin tuck/scap squeeze x10 with 3 holds - orange band 4: Horizontal VORx1 , seated in front of blank background, x30 (recovery 21), x45 (recovery 21), 5: Vertical VORx1, seated in front of blank background, using near target. Performed x30 (recovery 28), x45 (recovery 21). 6: Mid-rows x12 with 2 holds, using navy blue band 7: Horizontal shoulder abd x12 B with mint green band 8: Compilation of HEP. Provided pt with navy blue, mint green, and orange bands. Skilled Intervention: Reviewed and educated patient on additions/changes for home program Assessment performed as noted above. Educated on today's objective findings. Educated on proper technique for all above postural exercises. Billing Neuromuscular Re-Education Treatment Minutes: 42 Skilled Treatment Time Minutes (timed and untimed codes): 42 Total Session Time (minutes): 42 Session Start Time : 715 Session Stop Time : 757 Judah Clay PT, DPT documented in this encounter [facility] 10-16-2024 Note HNO ID: [id number] Author: JUDAH CLAY PT, DPT Service: ? Author Type: Physical Therapist Type: Progress Notes Filed: 10/16/2024 08:01 Note Text: Episode Visit Count: 2 Therapist That Will Accept/Oversee The Plan Of Care: Judah Clay DPT Start of Care Date: 10/13/24 Onset Date: 08/30/24 Patient Identified by Name and Date of : Yes REHABILITATION AND SPORTS THERAPY PHYSICAL THERAPY TREATMENT NOTE ASSESSMENT: Emily Gonsalez tolerated the session with no issues. She demonstrated negative testing for BPPV. She had quite a bit of tenderness on the L side of her cervical spine, L suboccipital musculature, and L upper trapezius. Cervical rotation to the L was also limited. She had quick recovery following seated VORx1 exercises - prescribed these for habituation. The patient will continue to benefit from ongoing skilled physical therapy to progress toward set goals. PLAN FOR NEXT VISIT: Progress habituation and postural/cervical musculature strengthening as tolerated. Potentially try Harper Treadmill Test. SUBJECTIVE: Pt states that she was sitting on the couch on Wednesday for about 30 minutes, got up and her eyes went black and she slowly went down to the ground. She denies hitting her head - lowered herself down slowly. She has never had syncopal episodes prior to her concussion. She went to a chiropractor morning of last week and had her neck manipulated. Otherwise, no changes. Pt states that she does get dizzy every time she gets out of bed. Pain: OBJECTIVE MEASURES WITH LEVEL OF FUNCTION: Oculomotor Testing Fixation Removed Spontaneous Nystagmus: (very low-grade R-beating) Gaze Evoked Nystagmus: Present Right Gaze : Right beat Left Gaze : No nystagmus Up Gaze : No nystagmus (dizzy) Down Gaze : No nystagmus Positional Testing Positional Test Comments: All positional testing was negative for BPPV. Square waveform nystagmus noted throughout positional tests. Pt reported transient symptoms of fogginess in R roll, L DH, and L roll test positions - resolved within 10 seconds. Cervical Spine ROM Cervical ROM : Measurement AROM Cervical Flexion AROM (degrees) : 40 Degrees Cervical Extension AROM (degrees) : 60 Degrees Cervical Side-Bend Right AROM (degrees): 30 Degrees Cervical Side-Bend Left AROM (degrees) : 32 Degrees Cervical Rotation Right AROM (degrees) : 66 Degrees Cervical Rotation Left AROM (degrees) : 56 Degrees Upper Cervical AROM: Grossly WNL - mild restriction to the R UE and Cervical Strength Strength Tested: Cervical Deep Neck Flexor Endurance: 10.25 TREATMENT: Neuromuscular Re-Education: 1: Obtained the pt's subjective report to inform today's interventions 2: Performed vestibular testing as noted above 3: Seated B shoulder ER with chin tuck/scap squeeze x10 with 3 holds - orange band 4: Horizontal VORx1 , seated in front of blank background, x30 (recovery 21), x45 (recovery 21), 5: Vertical VORx1, seated in front of blank background, using near target. Performed x30 (recovery 28), x45 (recovery 21). 6: Mid-rows x12 with 2 holds, using navy blue band 7: Horizontal shoulder abd x12 B with mint green band 8: Compilation of HEP. Provided pt with navy blue, mint green, and orange bands. Skilled Intervention: Reviewed and educated patient on additions/changes for home program Assessment performed as noted above. Educated on today's objective findings. Educated on proper technique for all above postural exercises. Billing Neuromuscular Re-Education Treatment Minutes: 42 Skilled Treatment Time Minutes (timed and untimed codes): 42 Total Session Time (minutes): 42 Session Start Time : 715 Session Stop Time : 757 Judah Clay PT, DPT [facility] 10-13-2024 Note HNO ID: [id number] Author: JUDAH CLAY PT, DPT Service: ? Author Type: Physical Therapist Type: Progress Notes Filed: 10/16/2024 07:16 Note Text: Episode Visit Count: 1 Therapist That Will Accept/Oversee The Plan Of Care: Judah Clay DPT Start of Care Date: 10/13/24 Onset Date: 08/30/24 Patient Identified by Name and Date of : Yes REHABILITATION AND SPORTS THERAPY PHYSICAL THERAPY EVALUATION PLAN OF CARE: Assessment: Emily Gonsalez presents with diagnosis of concussion and complaints of headache and intermittent dizziness that interfere with physical activities, recreational activities . The patient presents with impairments in independence in exercise, overall function, posture, and symptom management. PROMIS? (Patient-Reported Outcomes Measurement Information System) scores were reviewed and identified as within normal limits. Prognosis for therapy is Excellent due to: current objective clinical presentation . The patient will benefit from skilled therapy services to meet the goals established for this plan of care as noted below. Goals for Episode of Care: established 10/13/24 Patient will reduce her Graded Symptom Checklist to below 10 points to indicate reduced subjective impairment. Patient will report at least 75% improvement in her headache frequency and severity. Cervical spine assessment to be performed. [place] in home exercise program. Patient Goals: Return to school and sport Time Frame for Goals and Treatment : 11/12/24 Planned Interventions, Frequency, and Duration: Current Frequency: 2x/week Duration: 6 weeks Total Number of Visits Planned: 10 Planned Treatment Interventions: Therapeutic exercise (47343), Neuromuscular re-education (49258), Manual therapy (45135), Therapeutic activities (33143), Self-fpc management (51261), Canalith Repositioning Maneuvers (86506) PLAN FOR NEXT VISIT: Assess cervical spine and begin postural/cervical musculature strengthening/stretching. Begin habituation exercises Patient demonstrates good understanding of plan of care and treatment. The above goals and plan of care were discussed and agreed upon by patient/family. 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 That Wednesday she began to have symptoms. She took the [employer] and failed. Got accommodations for classes. She was monitoring symptoms. Began some oculomotor exercises thatwere given to her by the physician at [facility], which increased symptoms. She began some aerobic activity, beginning with walking, started the bike, but then went jogging for 15 minutes and passed out. She is home now until 11/07/23 for winter break. Her remaining symptoms are intermittent phono/photophobia. She has a constant band around her head as a headache, and occasionally gets sharp pains. She states that if she lets herself sleep for too long her headaches get worse. Her sleep schedule has been fairly regular. She states that her diet is good and her hydration has been better recently. She just took her exams and had some difficulty with concentration. She took the rizatriptan last night and that made her nauseous and gave her a worse headache. She states that she had vertigo since the concussion, however her mother (nurse practitioner) performed the Shea maneuver on her 2 days ago and she has not been dizzy since. Patient Goals: Return to school and sport Functional Limitations: physical activities, recreational activities Prior Level of Function: Independent without limitations Relevant History Past Relevant Medical Conditions: Comments Relevant Medical Conditions Comments: Depression Past Relevant Surgical Conditions: Comments Relevant Surgical Conditions Comments: Unremarkable Right or Left Handed: Right Employment: Student Hobbies / Interests: Lacrosse, reading Previous Treatment: Exercises per physician Falls Interview: No positive findings with falls interview Concussion Mechanism of Injury: Sport Memory Loss: No Loss of Consciousness: No History of Concussion: Yes GRADED SYMPTOM CHECKLIST Headache: 4 Pressure in the head: 4 Neck pain: 2 Nausea or vomitin Dizziness: 2 Blurred vision: 0 Balance problems: 1 Sensitivity to light: 2 Sensitivity to noise: 2 Feeling slowed down: 0 Feeling like in a fo Don't feel right: 1 Difficulty concentratin Difficulty rememberin Fatigue or low energy: 1 Confusion: 0 Drowsiness: 0 Trouble falling asleep: 0 More emotional: 0 Irritability: 0 Sadness: 0 Nervous or anxious: 0 Sleeping more than usual: 0 Sleeping less than usual: 0 Difficulty sleeping soundly: 0 Ringing in the ears: 1 Numbness or tinglin TOTAL SCORE: 26 TOTAL # OF SYMPTOMS: 13 NUMBER OF SYMPTOMS: 13 Physical Activity Worsen Symptoms: Yes Mental Activity Worsen Symptoms: Yes Pain: Pain Pain Level: 6 Pain (more content not included)... [facility] 10-13-2024 History of Presen t illness Narrative Episode Visit Count: 1 Therapist That Will Accept/Oversee The Plan Of Care: Judah Clay DPT Start of Care Date: 10/13/24 Onset Date: 08/30/24 Patient Identified by Name and Date of : Yes REHABILITATION AND SPORTS THERAPY PHYSICAL THERAPY EVALUATION PLAN OF CARE: Assessment: Emily Gonsalez presents with diagnosis of concussion and complaints of headache and intermittent dizziness that interfere with physical activities, recreational activities . The patient presents with impairments in independence in exercise, overall function, posture, and symptom management. PROMIS (Patient-Reported Outcomes Measurement Information System) scores were reviewed and identified as within normal limits. Prognosis for therapy is Excellent due to: current objective clinical presentation . The patient will benefit from skilled therapy services to meet the goals established for this plan of care as noted below. Goals for Episode of Care: established 10/13/24 Patient will reduce her Graded Symptom Checklist to below 10 points to indicate reduced subjective impairment. Patient will report at least 75% improvement in her headache frequency and severity. Cervical spine assessment to be performed. [place] in home exercise program. Patient Goals: Return to school and sport Time Frame for Goals and Treatment : 11/12/24 Planned Interventions, Frequency, and Duration: Current Frequency: 2x/week Duration: 6 weeks Total Number of Visits Planned: 10 Planned Treatment Interventions: Therapeutic exercise (91185), Neuromuscular re-education (84113), Manual therapy (98205), Therapeutic activities (91867), Self-fpc management (40686), Canalith Repositioning Maneuvers (08172) PLAN FOR NEXT VISIT: Assess cervical spine and begin postural/cervical musculature strengthening/stretching. Begin habituation exercises Patient demonstrates good understanding of plan of care and treatment. The above goals and plan of care were discussed and agreed upon by patient/family. 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 That Wednesday she began to have symptoms. She took the [employer] and failed. Got accommodations for classes. She was monitoring symptoms. Began some oculomotor exercises thatwere given to her by the physician at [facility], which increased symptoms. She began some aerobic activity, beginning with walking, started the bike, but then went jogging for 15 minutes and passed out. She is home now until 11/07/23 for winter break. Her remaining symptoms are intermittent phono/photophobia. She has a constant band around her head as a headache, and occasionally gets sharp pains. She states that if she lets herself sleep for too long her headaches get worse. Her sleep schedule has been fairly regular. She states that her diet is good and her hydration has been better recently. She just took her exams and had some difficulty with concentration. She took the rizatriptan last night and that made her nauseous and gave her a worse headache. She states that she had vertigo since the concussion, however her mother (nurse practitioner) performed the Shea maneuver on her 2 days ago and she has not been dizzy since. Patient Goals: Return to school and sport Functional Limitations: physical activities, recreational activities Prior Level of Function: Independent without limitations Relevant History Past Relevant Medical Conditions: Comments Relevant Medical Conditions Comments: Depression Past Relevant Surgical Conditions: Comments Relevant Surgical Conditions Comments: Unremarkable Right or Left Handed: Right Employment: Student Hobbies / Interests: Lacrosse, reading Previous Treatment: Exercises per physician Falls Interview: No positive findings with falls interview Concussion Mechanism of Injury: Sport Memory Loss: No Loss of Consciousness: No History of Concussion: Yes GRADED SYMPTOM CHECKLIST Headache: 4 Pressure in the head: 4 Neck pain: 2 Nausea or vomitin Dizziness: 2 Blurred vision: 0 Balance problems: 1 Sensitivity to light: 2 Sensitivity to noise: 2 Feeling slowed down: 0 Feeling like in a fo Don't feel right: 1 Difficulty concentratin Difficulty rememberin Fatigue or low energy: 1 Confusion: 0 Drowsiness: 0 Trouble falling asleep: 0 More emotional: 0 Irritability: 0 Sadness: 0 Nervous or anxious: 0 Sleeping more than usual: 0 Sleeping less than usual: 0 Difficulty sleeping soundly: 0 Ringing in the ears: 1 Numbness or tinglin TOTAL SCORE: 26 TOTAL # OF SYMPTOMS: 13 NUMBER OF SYMPTOMS: 13 Physical Activity Worsen Symptoms: Yes Mental Activity Worsen Symptoms: Yes Pain: Pain Pain Level: 6 Pain Location: Head - Left, Head - Right Description: Aching PROMIS Scales 10/12/2024 Higher is Better Phys Func - Score 48 (within normal limits) Phys Func - Percentile 42 Self-Eff Symptom - Score 41 (Average) Self-Eff Symptom - Percentile 18 T-scores: mean of general population = 50. 5 points is clinically meaningfully difference Percentiles provide an indication of how the patient's score ranks in relation to the general population. Higher percentile rankings indicate better function/quality of life. 50th percentile is the average of the general population and indicates half of respondents had a worse score. OBJECTIVE MEASURES WITH LEVEL OF FUNCTION: Vestibular/Ocular Motor Test Not tested Headache 0-10 Dizziness 0-10 Nausea 0-10 Fogginess 0-10 Comments Baseline Symptoms N/A 5 0 0 0 Smooth Pursuit 5 0 0 0 Saccades Horizontal 5 0 0 0 Saccades Vertical 5 0 0 0 Convergence 6 0 0 0 Near Point in cm: Measure 1: 4 cm Measure 2: 3 cm Measure 3: 6 cm VOR Horizontal 6 1 0 0 VOR Vertical 7 4 0 0 Visual Motion Sensitivity 5 2 0 0 * Symptom provocation of 2 or greater an any 1 itme is indicative of vestibular / ocular motor involvement * Normal NPC is 6 cm or less Orthostatic BP Testing: Arm used: left Cuff: Adult medium Position BP (mmHg) MAP (mmHg) HR (bpm) Symptoms? Supine 117/71 87 61 Headache Seated 113/70 85 66 Headache Standing 113/76 89 79 Headache Education: Education Learning Preferences: Demonstration, Explanation, Performance, Printed Materials Barriers: None Learning/educational needs: Home exercise program, Plan of Care, Safety Education Provided: Yes, see treatment interventions for education provided Education Provided To: Patient Education Mode/Type: Explanation/Discussion, Demonstration Response to Education/Teach Back: States/Identifies TREATMENT: PT Treatment Interventions: Therapeutic Activity Evaluation Therapeutic Activity: 1: Educated the pt on the importance of proper sleep hygiene, advising her to have a set bedtime and wake-up time every day. Discussed establishing a bedtime routine. 2: Educated on activity modification using the 2-point rule 3: Advised the pt to begin aerobic exercise on a recumbent bike, to tolerance. Skilled Intervention: Activity progression based on professional judgment. Education as noted above Billing * Evaluation Low Complexity: 1 Unit Therapeutic Activity Treatment Minutes: 15 Skilled Treatment Time Minutes (timed and untimed codes): 46 Total Session Time (minutes): 46 Session Start Time : 1015 Session Stop Time : 1101 Judah Clay PT, DPT documented in this encounter [facility] 10-11-2024 Note HNO ID: [id number] Author: LASHA WITT MD Service: ? Author Type: Physician Type: Progress Notes Filed: 10/11/2024 11:19 Note Text: ASSESSMENT AND PLAN: Problem List Items Addressed This Visit None Visit Diagnoses Post-concussion headache - Primary Relevant Medications rizatriptan (MAXALT) 10 mg tablet Other Relevant Orders CONSULT TO PHYSICAL THERAPY Advised using OTC Excedrin with caffeine PRN. Encouraged sufficient sleep and regular rise time. Encouraged adequate hydration. Avoid inflammatory foods like sugar. Limit screen time. Discussed slow return to regular activity. Questions and concerns addressed in office. AVS provided. FOLLOW UP: Return if symptoms worsen or fail to improve. SUBJECTIVE: Emily Gonsalez is a 19 year old female presenting in the office today. CC: Patient presents with: Headache: Pt presents for Headaches, pt was playing Lacrosse in mid August and was hit in the head with a ball and had a mild concussion and that is when the headaches started. 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 Pt states when she started exercising it was getting worse, pt states her production trainer wanted her to start jogging and so she went 15 min. Came back and passed out. Medications were reviewed and verified. 09/19/2024 10/11/2024 INTAKE PAIN ASSESSMENT Are you having pain associated with your visit today? No Yes, Provider notified If pain assessment is 0, no action needed. If pain assessment is positive, please see assessment and plain. HPI: White female presents with complaints of band/tension like headache since August 30, 2024 following a concussion while playing lacrosse. Returned to game though did not participate in any practices or games following injury. Was given accommodations for classes. Passed her classes. Physical training has been working with patient daily. Sports physician prescribed amantadine and recommended eye and ear exercises. Could not tolerate exercises due to dizziness. Headaches fluctuate and associated with dizziness. Has been trying Tylenol and ibuprofen. PHYSICAL EXAMINATION: BP 104/70 Pulse 70 Resp 18 Wt 142 lb (64.4kg) SpO2 96% Physical Exam Vitals reviewed. Constitutional: Appearance: Normal appearance. HENT: Head: Normocephalic and atraumatic. Cardiovascular: Rate and Rhythm: Normal rate. Pulmonary: Effort: Pulmonary effort is normal. Breath sounds: Normal breath sounds. Neurological: Mental Status: She is alert. Cranial Nerves: Cranial nerves 2-12 are intact. Coordination: Bevqyc-Gbat-[id number] Test and Heel to Christie Test normal. Gait: Gait and tandem walk normal. Psychiatric: Mood and Affect: Mood normal. Speech: Speech normal. Behavior: Behavior normal. [facility] 10-11-2024 History of Presen t illness Narrative ASSESSMENT & PLAN: Problem List Items Addressed This Visit None Visit Diagnoses Post-concussion headache - Primary Relevant Medications rizatriptan (MAXALT) 10 mg tablet Other Relevant Orders CONSULT TO PHYSICAL THERAPY Advised using OTC Excedrin with caffeine PRN. Encouraged sufficient sleep and regular rise time. Encouraged adequate hydration. Avoid inflammatory foods like sugar. Limit screen time. Discussed slow return to regular activity. Questions and concerns addressed in office. AVS provided. FOLLOW UP: Return if symptoms worsen or fail to improve. SUBJECTIVE: Emily Gonsalez is a 19 year old female presenting in the office today. CC: Patient presents with: Headache: Pt presents for Headaches, pt was playing Lacrosse in mid August and was hit in the head with a ball and had a mild concussion and that is when the headaches started. 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 Pt states when she started exercising it was getting worse, pt states her production trainer wanted her to start jogging and so she went 15 min. Came back and passed out. Medications were reviewed and verified. 09/19/2024 10/11/2024 INTAKE PAIN ASSESSMENT Are you having pain associated with your visit today? No Yes, Provider notified If pain assessment is 0, no action needed. If pain assessment is positive, please see assessment and plain. HPI: White female presents with complaints of band/tension like headache since August 30, 2024 following a concussion while playing lacrosse. Returned to game though did not participate in any practices or games following injury. Was given accommodations for classes. Passed her classes. Physical training has been working with patient daily. Sports physician prescribed amantadine and recommended eye and ear exercises. Could not tolerate exercises due to dizziness. Headaches fluctuate and associated with dizziness. Has been trying Tylenol and ibuprofen. PHYSICAL EXAMINATION: BP 104/70 Pulse 70 Resp 18 Wt 142 lb (64.4kg) SpO2 96% Physical Exam Vitals reviewed. Constitutional: Appearance: Normal appearance. HENT: Head: Normocephalic and atraumatic. Cardiovascular: Rate and Rhythm: Normal rate. Pulmonary: Effort: Pulmonary effort is normal. Breath sounds: Normal breath sounds. Neurological: Mental Status: She is alert. Cranial Nerves: Cranial nerves 2-12 are intact. Coordination: Zakven-Hqzs-Qjpyof Test and Heel to Christie Test normal. Gait: Gait and tandem walk normal. Psychiatric: Mood and Affect: Mood normal. Speech: Speech normal. Behavior: Behavior normal. documented in this encounter [facility] 09-20-2024 Note HNO ID: [id number] Author: LASHA WITT MD Service: ? Author Type: Physician Type: Progress Notes Filed: 09/20/2024 12:15 Note Text: ASSESSMENT AND PLAN: Problem List Items Addressed This Visit Psychiatry Anxiety and depression Overview Continue CBT through [facility]. Continue Prozac 10 mg daily. Discussed supportive care including diet, exercise, and sufficient sleep. Relevant Medications FLUoxetine (PROZAC) 10 mg capsule Questions and concerns addressed in office. AVS provided. FOLLOW UP: Return in about 3 months (around 12/21/2024) for Recheck mental health. SUBJECTIVE: Emily Gonsalez is a 19 year old female presenting in the office today. CC: Patient presents with: Anxiety Medications were reviewed and verified. 07/26/2024 09/19/2024 INTAKE PAIN ASSESSMENT Are you having pain associated with your visit today? No No If pain assessment is 0, no action needed. If pain assessment is positive, please see assessment and plain. HPI: White female with acute stress presents via video encounter, Zoom, to follow up on SSRI therapy. 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 Started Fluoxetine at her last visit. Participates in CBT every 2-4 weeks with plans to increase therapy once she returns home. Recognizes benefit from low dose fluoxetine. Appreciated that she's not crying as much. Mother and room mate appreciated positive changes. Suffered a concussion during lacrosse. Followed by team doc at [facility]. PHYSICAL EXAMINATION: There were no vitals taken for this visit. Physical Exam Vitals reviewed. Constitutional: General: She is not in acute distress. Appearance: Normal appearance. She is not ill-appearing. HENT: Head: Normocephalic and atraumatic. Pulmonary: Effort: Pulmonary effort is normal. Neurological: Mental Status: She is alert. Psychiatric: Mood and Affect: Mood normal. Speech: Speech normal. Behavior: Behavior normal. [facility] 09-20-2024 History of Presen t illness Narrative ASSESSMENT & PLAN: Problem List Items Addressed This Visit Psychiatry Anxiety and depression Overview Continue CBT through [facility]. Continue Prozac 10 mg daily. Discussed supportive care including diet, exercise, and sufficient sleep. Relevant Medications FLUoxetine (PROZAC) 10 mg capsule Questions and concerns addressed in office. AVS provided. FOLLOW UP: Return in about 3 months (around 12/21/2024) for Recheck mental health. SUBJECTIVE: Emily Gonsalez is a 19 year old female presenting in the office today. CC: Patient presents with: Anxiety Medications were reviewed and verified. 07/26/2024 09/19/2024 INTAKE PAIN ASSESSMENT Are you having pain associated with your visit today? No No If pain assessment is 0, no action needed. If pain assessment is positive, please see assessment and plain. HPI: White female with acute stress presents via video encounter, Zoom, to follow up on SSRI therapy. 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 Started Fluoxetine at her last visit. Participates in CBT every 2-4 weeks with plans to increase therapy once she returns home. Recognizes benefit from low dose fluoxetine. Appreciated that she's not crying as much. Mother and room mate appreciated positive changes. Suffered a concussion during lacrosse. Followed by team doc at [facility] [place]. PHYSICAL EXAMINATION: There were no vitals taken for this visit. Physical Exam Vitals reviewed. Constitutional: General: She is not in acute distress. Appearance: Normal appearance. She is not ill-appearing. HENT: Head: Normocephalic and atraumatic. Pulmonary: Effort: Pulmonary effort is normal. Neurological: Mental Status: She is alert. Psychiatric: Mood and Affect: Mood normal. Speech: Speech normal. Behavior: Behavior normal. documented in this encounter [facility] 07-26-2024 Instructions Lasha Witt MD - 07/26/2024 12:16 PM EDT What is depression? Depression is a medical illness. Someone who has depression has symptoms nearly every day, all day, for 2 weeks or longer. This is considered major depression. There are other forms of depression that may have less severe symptoms. All the various forms of depression share the same usual causes and often the same treatments. Depression can affect people of all ages and is different for every person. A person who has depression can t control his or her feelings. If you or your child, teen, or older relative is depressed, it s not his or her fault. Left untreated, depression can last for weeks, months, or even years. Women are twice as likely as men to experience depression. The reason for this is unknown. Changes in a woman s hormone levels may be related to depression. Symptoms of depression Symptoms are different for every person. You may have one or many of the symptoms listed below. Your symptoms may appear as emotional, physical, or a combination of both. The symptoms of depression may be different for children, teens, and seniors. Emotional symptoms include: Crying easily or for no reason. Feeling guilty or worthless. Feeling restless, irritated, and easily annoyed. Feeling sad, numb, or hopeless. Losing interest or pleasure in things you used to enjoy (including sex). Thinking about or suicide. Physical symptoms include: Changes in appetite (eating more than usual, or eating less than usual). Feeling extremely tired all the time. Having other aches and pains that don t get better with treatment. Having trouble paying attention, recalling things, concentrating, and making decisions. Headaches, backaches, or digestive problems. Sleeping too much, or having trouble sleeping. Unintended weight loss or gain. What causes depression? Depression is typically caused by one or more factors. This includes genetic, biological, environmental, and psychological causes. For example, depression may be caused by an imbalance of chemicals in the brain. Sometimes there aren t enough chemical messengers (called neurotransmitters) in the brain. Neurotransmitters that affect your mood are serotonin, norepinephrine, and dopamine. A chemical imbalance in the brain may be caused by one or more of the following: Your genes. Sometimes depression is hereditary. This means it runs in your family. You may be more at risk for having depression if you have a parent or sibling who has depression. A medical condition. Problems with your thyroid or nutrient deficiencies may be associated with an increased risk of depression. Events in your life. Depression can be triggered by stressful events in your life. These can include the of someone you love, a divorce, chronic illness, or loss of a job. Medicines, drugs, or alcohol. Taking certain medicines, abusing drugs or alcohol, or having other illnesses can also lead to depression. Depression is not caused by personal weakness, laziness, or lack of willpower. Can giving cause depression? In the days following the of a baby, it is common for some mothers to have mood swings. They may feel a little depressed or have a hard time concentrating. They may lose their appetite or find that they can t sleep well even when the baby is asleep. This is called the baby blues and goes away within 10 days after delivery. However, some women have worse symptoms or symptoms that last longer. This is called depression. How is depression diagnosed? Tell your doctor about your symptoms. Don t expect your doctor to guess that you re depressed just by looking at you. You may feel embarrassed. It may be hard for you to imagine treatment will actually help you feel better. But don t wait to talk to your doctor. The sooner you seek treatment, the sooner the depression will lift. Once you tell your doctor how you re feeling, he or she may ask you some questions about your symptoms, your health, and your family history. Your doctor may also give you a physical exam and do some tests. It is important to tell your doctor about any medicines that you are taking. Reasons to get help early: Early diagnosis and treatment helps keep depression from getting worse or lasting a long time. Diagnosis and treatment can help you return to your normal self and enjoy life. Treatment can help prevent depression from coming back. Thoughts of suicide are common in people with major depression. The risk of suicide is higher the longer you wait to treat it. When depression is successfully treated, thoughts of suicide go away. Can depression be prevented or avoided? Generally, depression is a condition that cannot be prevented. There are lifestyle changes you can make that can boost your mood and minimize symptoms of depression (see depression treatment). Depression treatment Depression can be treated with medicines, with counseling, or with both. Lifestyle changes can help. This includes a nutritious diet, regular exercise, and avoiding alcohol, drugs, and too much caffeine. Depression usually can be treated through visits to your doctor. You may need in-hospital treatment if you have other medical conditions that could affect your treatment. In-hospital treatment is required if you re at high risk of suicide. Medicine Your doctor may prescribe medicine to treat your depression. These are called antidepressants. They help increase the number of chemical messengers (serotonin, norepinephrine, dopamine) in your brain. Antidepressants work differently for different people. They also have different side effects. So, even if one medicine bothers you or doesn t work for you, another may help. You may notice improvement as soon as 1 week after you start taking the medicine. But you probably won t see the full effects for about 8 to 12 weeks. You may have side effects at first. They tend to decrease after a couple of weeks. Don t stop taking the medicine without checking with your doctor first. Counseling Counseling may be a good treatment option for mild to moderate depression. For major depression and for some people with minor depression, counseling may not be enough. A combination of medicine and talk therapy is usually the most effective way of treating more severe depression. If you continue the combination treatment for at least a year, you are less likely to have depression come back. In psychotherapy, you talk with a trained therapist or counselor about things that are going on in your life. The focus may be on your thoughts and beliefs, on things that happened in your past, or on your relationships. Or the focus may be on your behavior, how it s affecting you, and what you can do differently. Psychotherapy usually lasts for a limited time, such as 8 to 20 visits. In more serious cases, your doctor may suggest the use of electroconvulsive therapy (also called ECT or electroshock therapy). This is a procedure used to treat certain mental illnesses. Electric currents are passed through the brain in order to trigger a seizure (a short period of irregular brain activity). It lasts about 40 seconds. Medicine is given during ECT to prevent damage to muscles and bones. Electroconvulsive therapy may help people who have the following conditions: Severe depression that does not respond to antidepressants (medicines used to treat depression) or counseling. Severe depression in patients who can t take antidepressants. Severe deysi that does not respond to medicine. Symptoms of severe deysi may include agitation, confusion, hallucinations, or delusions. Schizophrenia that does not respond to medicine. Living with depression The most important part of living with depression is not giving up. If you stay focused and are consistent with treatment, your mood will improve over time. Consider these dos and don ts as you work toward recovery. Do: Pace yourself. Get involved in activities that make you feel good or feel like you ve achieved something. This includes volunteering or joining a club. Avoid drugs and alcohol. Both make depression worse. Both can cause dangerous side effects with antidepressant medicines. Exercise regularly. It makes your body feel better. Exercise causes a chemical reaction in the body that can boost your mood. Your goal should be exercising 4 to 6 times a week for at least 30 minutes each time. Eat balanced meals and healthy foods. Avoid junk food and processed food. Get plenty of sleep. Keep your sleep routine consistent (waking up and going to bed at the same time each day). Take your medicine and/or go to counseling as often as your doctor recommends. Your medicine won t work if you only take it occasionally. Set small goals for yourself if you have low energy. Encourage yourself. Get as much information as you can about depression and how to treat it. Call your doctor or the local suicide crisis center right away if you have thoughts of suicide. Don t: Don t isolate yourself. Stay in touch with friends, family, your senior living advisor, and your doctor. Don t let negative thoughts linger in your mind. Don t talk badly about yourself. Don t expect to fail. This type of thinking is typical of depression. These thoughts will go away as your depression lifts. Don t blame yourself for your depression. You didn t cause it. Don t make major life decisions while you are depressed. This includes marriage, divorce, separation, quitting your job, etc. You may not be thinking clearly while you are depressed. If you must make an important decision, ask someone you trust to help you. Don t expect to do everything you normally can. Set a realistic schedule. Don t get discouraged. It will take time for your depression to lift fully. Be patient with yourself. Don t give up. Complications People who have depression sometimes think about suicide. This thinking is a common symptom of the depression. If you have thoughts about hurting yourself, tell someone. Tell your doctor, your friends, or your family. Or you could call your local suicide hotline, such as the National Suicide Prevention Lifeline at . Get help right away. There are people who can help you. Depression can be successfully treated. Last Updated: February 26, 2021 This article was contributed by: [email or web address] editorial staff documented in this encounter [facility] 07-26-2024 History of Presen t illness Narrative ASSESSMENT & PLAN: Problem List Items Addressed This Visit None Visit Diagnoses Anxiety and depression - Primary Relevant Medications FLUoxetine (PROZAC) 10 mg capsule Discussed CBT and pharmacotherapy. [facility] Would benefit from SSRI. Discussed potential SE and informed patient that it may take 4-6 weeks to appreciate benefit from therapy. [employer] Suicide Prevention Lifeline provided. Questions and concerns addressed in office. AVS provided. FOLLOW UP: Return in about 6 weeks (around 09/06/2024) for Recheck mental health. SUBJECTIVE: Emily Gonsalez is a 19 year old female presenting in the office today. CC: Patient presents with: Establish Care: Pt presents today to Establish Care. Pt would also like to discuss Anxiety and depression with . Medications were reviewed and verified. 03/07/2024 07/26/2024 INTAKE PAIN ASSESSMENT Are you having pain associated with your visit today? No No If pain assessment is 0, no action needed. If pain assessment is positive, please see assessment and plain. HPI: White [facility]. 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 And playing lacrosse. Complaining of feelings of dread since starting university. Symptoms occur sporadically and can last several minutes. Symptoms can occasionally be triggered by stressors. When symptoms occurred more frequently, patient sought the help of [facility]. Of note, patient broke up with her boyfriend last night. Report a family hx of anxiety in maternal aunt. Denies any alcohol or drug use. 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 ERICA 7: 13 AC DEPRESSION SCALE: 30 PHYSICAL EXAMINATION: BP 102/70 Pulse 60 Resp 18 Ht 5' 5 (1.65m) Wt 139 lb (63.1kg) SpO2 96% BMI 23.13 kg/(m^2). Physical Exam Vitals reviewed. Constitutional: Appearance: Normal appearance. HENT: Head: Normocephalic and atraumatic. Cardiovascular: Rate and Rhythm: Normal rate. Pulmonary: Effort: Pulmonary effort is normal. Breath sounds: Normal breath sounds. Neurological: Mental Status: She is alert. Psychiatric: Mood and Affect: Mood normal. Affect is tearful. Speech: Speech normal. Behavior: Behavior normal. documented in this encounter [facility] 03-07-2024 Note HNO ID: [id number] Author: CALE JAY MD Service: ? Author Type: Physician Type: Progress Notes Filed: 03/08/2024 10:22 Note Text: Cale Jay MD [facility] Date of Evaluation: 03/07/2024 Patient Name: Emily Gonsalez : 2005 Chief Complaint: Patient presents with: Establish Care ASSESSMENT/PLAN: 1. Acne vulgaris - ICD9: 706.1, ICD10: L70.0 (primary diagnosis) Currently on azithromycin to 50 mg Wednesday, Wednesday, Wednesday weekly for 4 weeks. Acne has been improving. Prescription has been provided to her by her mother who is a nurse practitioner. Does not currently have a operating room specialist. - AZITHROMYCIN 500 MG TABLET 2. Special screening examination for viral disease - ICD9: V73.99, ICD10: Z11.59 Routine screening for patients greater than age 18 - HEPATITIS C ANTIBODY IA WITH CONFIRMATION 3. Screening for HIV (human immunodeficiency virus) - ICD9: V73.89, ICD10: Z11.4 Routine screening - HIV 1/2 COMBO WITH REFLEX TO DIFFERENTIATION 4. Screening for STD (sexually transmitted disease) - ICD9: V74.5, ICD10: Z11.3 Routine screening. Patient is not sexually active and does not want any other testing at this time. - GONORRHEA/CHLAMYDIA NAAT 5. Vegetarian diet - ICD9: V49.89, ICD10: Z78.9 - VITAMIN B12 - FOLATE, SERUM 6. Vitamin D deficiency - ICD9: 268.9, ICD10: E55.9 - VITAMIN D 25 HYDROXY 7. Abnormal laboratory test - ICD9: 796.4, ICD10: R89.9 - THYROID STIMULATING HORMONE 8. Blood donor - ICD9: V59.09, ICD10: Z52.008 Routinely donates blood will check for iron deficiency. - COMPLETE BLOOD COUNT AND DIFFERENTIAL - COMPREHENSIVE METABOLIC PANEL - IRON AND TIBC - FERRITIN 9. Change in weight - ICD9: 780.99, ICD10: R68.89 - THYROID STIMULATING HORMONE 10. Encounter for medical examination to establish care - ICD9: V70.9, ICD10: Z00.00 - Counseled on healthy diet and regular exercise Nursing Intake: There are no exam notes on file for this visit. Subjective Ms. Gonsalez is a 19 year old female who presents with the following complaint(s): HPI Here to establish care Mother who SKIP TENDER was managing care previously. Patient donated blood last week and would want to wait till further Does not eat meat, is vegetarian, only eats eggs and milk. Wants to get appropriate blood work for making sure she is not deficient. Nexplanon inserted 09/15/2022: Jaziel Conway APRN-[employer] Valid until 09/15/2025 Does not have a welding machine tender at this time, no concerns. Menstrual cycle is regular. Taking multiple supplements: Calcium, zinc and mag, iron, algae omega, Super B complex daily, ashwagandha, vitamin D3/K2, creatine, probiotic for skin. If she does not take her iron does get dizzy. Recommended by mother/trainers at [place] (studies at [facility]) Previously Donated blood every 2 months. Donates only in summer Acne: On Azithromycin for acne (also prescribed by mother) On Azithromycin 250mg three days a week for 4 weeks. Feels like her acne has been clearing Denies any other concerns. 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 Patient plays lacrosse and is generally active. Review of Systems All other systems reviewed and are negative. History reviewed. No pertinent past medical history. PAST SURGICAL HISTORY Procedure Laterality Date TOOTH EXTRACTION wisdom teeth FAMILY HISTORY Problem Relation Age of Onset other (ovarian mass) Mother 47 No Known Problems Father No Known Problems Brother No Known Problems Brother other (cabg) Maternal Grandmother other (skin surgery) Maternal Grandfather other (mechanical heart valve) Paternal Grandmother No Known Problems Paternal Grandfather Social History Tobacco Use Smoking status: Never Smokeless tobacco: Never Vaping Use Vaping Use: Never used Substance Use Topics Alcohol use: Never Drug use: Never Current Outpatient Medications Medication Sig Dispense Refill azithromycin (ZITHROMAX) 500 mg tablet Take 2 tabs //Wed x 4 weeks Calcium Carbonate-Vit D3-Min (CALCIUM 600 + MINERALS) 600 mg calcium- 200 unit tab Take 1 tablet by mouth once daily. vit B wzvj-pzdbq-nglpmnq-inosi (SUPER B-50 COMPLEX) 400 mcg-20 mg- 50 mg cap Take 1 tablet by mouth once daily. scpuh-9e-bqy-epa-fish oil [id number] mg cap Take 1 capsule by mouth once daily. Vegan ferrous sulfate (IRON) 325 mg (65 mg iron) tablet Take 1 tablet by mouth once daily. lactobacillus comb no.10 (PROBIOTIC) 20 billion cell cap Takes 40 BN ashwagandha root extract 300 mg tab Take 150 mg by mouth once daily. eldqrvx-Q0-P6-choline-silicon 275 mg-12.5 mcg -22.5 mcg cap Take 1 capsule by mouth once daily. cholecalciferol, vitD3,/vit K2 (VITAMIN D3-VITAMIN K2) 125 mcg (5,000 unit)-100 mcg cap Take 1 capsule by mouth once daily. Creatine Monohydrate, Bulk, 100 % powd 2 g once daily. No current facility-administered med (more content not included)... [facility] 03-07-2024 History of Presen t illness Narrative Images from the original note were not included. Cale Jay MD [facility] Date of Evaluation: 03/07/2024 Patient Name: Emily Gonsalez : 2005 Chief Complaint: Patient presents with: Establish Care ASSESSMENT/PLAN: 1. Acne vulgaris - ICD9: 706.1, ICD10: L70.0 (primary diagnosis) Currently on azithromycin to 50 mg Wednesday, Wednesday, Wednesday weekly for 4 weeks. Acne has been improving. Prescription has been provided to her by her mother who is a nurse practitioner. Does not currently have a operating room specialist. - AZITHROMYCIN 500 MG TABLET 2. Special screening examination for viral disease - ICD9: V73.99, ICD10: Z11.59 Routine screening for patients greater than age 18 - HEPATITIS C ANTIBODY IA WITH CONFIRMATION 3. Screening for HIV (human immunodeficiency virus) - ICD9: V73.89, ICD10: Z11.4 Routine screening - HIV 1/2 COMBO WITH REFLEX TO DIFFERENTIATION 4. Screening for STD (sexually transmitted disease) - ICD9: V74.5, ICD10: Z11.3 Routine screening. Patient is not sexually active and does not want any other testing at this time. - GONORRHEA/CHLAMYDIA NAAT 5. Vegetarian diet - ICD9: V49.89, ICD10: Z78.9 - VITAMIN B12 - FOLATE, SERUM 6. Vitamin D deficiency - ICD9: 268.9, ICD10: E55.9 - VITAMIN D 25 HYDROXY 7. Abnormal laboratory test - ICD9: 796.4, ICD10: R89.9 - THYROID STIMULATING HORMONE 8. Blood donor - ICD9: V59.09, ICD10: Z52.008 Routinely donates blood will check for iron deficiency. - COMPLETE BLOOD COUNT AND DIFFERENTIAL - COMPREHENSIVE METABOLIC PANEL - IRON AND TIBC - FERRITIN 9. Change in weight - ICD9: 780.99, ICD10: R68.89 - THYROID STIMULATING HORMONE 10. Encounter for medical examination to establish care - ICD9: V70.9, ICD10: Z00.00 - Counseled on healthy diet and regular exercise Nursing Intake: There are no exam notes on file for this visit. Subjective Ms. Gonsalez is a 19 year old female who presents with the following complaint(s): HPI Here to establish care Mother who SKIP TENDER was managing care previously. Patient donated blood last week and would want to wait till further Does not eat meat, is vegetarian, only eats eggs and milk. Wants to get appropriate blood work for making sure she is not deficient. Nexplanon inserted 09/15/2022: Jaziel Dougvanessa TRAY LINE WORKER-[employer] Valid until 09/15/2025 Does not have a welding machine tender at this time, no concerns. Menstrual cycle is regular. Taking multiple supplements: Calcium, zinc and mag, iron, algae omega, Super B complex daily, ashwagandha, vitamin D3/K2, creatine, probiotic for skin. If she does not take her iron does get dizzy. Recommended by mother/trainers at [place] (studies at [facility]) Previously Donated blood every 2 months. Donates only in summer Acne: On Azithromycin for acne (also prescribed by mother) On Azithromycin 250mg three days a week for 4 weeks. Feels like her acne has been clearing Denies any other concerns. 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 Patient plays lacrosse and is generally active. Review of Systems All other systems reviewed and are negative. History reviewed. No pertinent past medical history. PAST SURGICAL HISTORY Procedure Laterality Date TOOTH EXTRACTION wisdom teeth FAMILY HISTORY Problem Relation Age of Onset other (ovarian mass) Mother 47 No Known Problems Father No Known Problems Brother No Known Problems Brother other (cabg) Maternal Grandmother other (skin surgery) Maternal Grandfather other (mechanical heart valve) Paternal Grandmother No Known Problems Paternal Grandfather Social History Tobacco Use Smoking status: Never Smokeless tobacco: Never Vaping Use Vaping Use: Never used Substance Use Topics Alcohol use: Never Drug use: Never Current Outpatient Medications Medication Sig Dispense Refill azithromycin (ZITHROMAX) 500 mg tablet Take 2 tabs //Wed x 4 weeks Calcium Carbonate-Vit D3-Min (CALCIUM 600 + MINERALS) 600 mg calcium- 200 unit tab Take 1 tablet by mouth once daily. vit B ckus-bkmhs-mzgqxex-inosi (SUPER B-50 COMPLEX) 400 mcg-20 mg- 50 mg cap Take 1 tablet by mouth once daily. olory-7j-xxi-epa-fish oil [id number] mg cap Take 1 capsule by mouth once daily. Vegan ferrous sulfate (IRON) 325 mg (65 mg iron) tablet Take 1 tablet by mouth once daily. lactobacillus comb no.10 (PROBIOTIC) 20 billion cell cap Takes 40 BN ashwagandha root extract 300 mg tab Take 150 mg by mouth once daily. aclpiwd-O0-Y3-choline-silicon 275 mg-12.5 mcg -22.5 mcg cap Take 1 capsule by mouth once daily. cholecalciferol, vitD3,/vit K2 (VITAMIN D3-VITAMIN K2) 125 mcg (5,000 unit)-100 mcg cap Take 1 capsule by mouth once daily. Creatine Monohydrate, Bulk, 100 % powd 2 g once daily. No current facility-administered medications for this visit. I have confirmed and edited as necessary the chief complaint, medications, past medical, family and social histories obtained by others. Objective BP 103/68 Pulse 54 Temp 97.8 Ht 5' 4 (1.63m) Wt 137 lb (62.1kg) SpO2 100% BMI 23.50 kg/(m^2). Physical Exam Vitals reviewed. Constitutional: General: She is not in acute distress. Appearance: Normal appearance. HENT: Head: Normocephalic and atraumatic. Mouth/Throat: Mouth: Mucous membranes are moist. Eyes: Extraocular Movements: Extraocular movements intact. Conjunctiva/sclera: Conjunctivae normal. Pupils: Pupils are equal, round, and reactive to light. Cardiovascular: Rate and Rhythm: Normal rate and regular rhythm. Pulses: Normal pulses. Heart sounds: Normal heart sounds. No murmur heard. Pulmonary: Effort: Pulmonary effort is normal. No respiratory distress. Breath sounds: Normal breath sounds. No wheezing or rales. Abdominal: General: Bowel sounds are normal. There is no distension. Palpations: Abdomen is soft. Tenderness: There is no abdominal tenderness. There is no guarding. Musculoskeletal: Cervical back: Normal range of motion and neck supple. Right lower leg: No edema. Left lower leg: No edema. Skin: General: Skin is warm. Capillary Refill: Capillary refill takes less than 2 seconds. Comments: Facial acne Neurological: General: No focal deficit present. Mental Status: She is alert and oriented to person, place, and time. Psychiatric: Mood and Affect: Mood normal. Behavior: Behavior normal. Thought Content: Thought content normal. Judgment: Judgment normal. Data Reviewed: Most recent labs and imaging results. Return in about 1 year (around 03/07/2025), or if symptoms worsen or fail to improve, for Annually or as needed fu with PCP. Discussed the above with the patient using shared decision making. The patient is in agreement with the diagnostic and treatment plans. This note was partially generated using Pixelligent recognition system, and there may be some incorrect words, spellings, and punctuation that were not noted in checking the note before saving. documented in this encounter [facility] 02-11-2022 Emergency department Note AVS reviewed with patient and mother. No questions at this time. Patient ambulated off unit with upright and steady gait. [facility] 02-11-2022 Emergency department Note AVS reviewed with patient and mother. No questions at this time. Patient ambulated off unit with upright and steady gait. Patient taken to xray on cart by technical writer and editor at this time, accompanied by patient's mother. Attending at bedside. Patient brought in by wheelchair. Patient playing lacrosse today and another player fell on top of pt's R leg which gave out. Patient denies feeling /hearing any cracks. Pt R ankle melanie wrapped, able to wiggle toes, denies any numbness/tingling to R toes. documented in this encounter [facility] 02-11-2022 Hospital Discharg e instructions Christine Lange APRN-CNP - 02/11/2022 10:41 PM EDT Tylenol or Ibuprofen as directed as needed for pain. Ice the affected area for 20 minutes at a time while awake for the next 48 hours. Elevate and rest. May return to gym or sports as discussed when pain free for 48 hours. Follow-up with Antelmo Juan MD in 5-7 days if pain is not improved or sooner if new concerns arise. Return to ED for worsening symptoms including increased swelling, increased pain, decrease in activity, or any other concerns. The following attachments cannot be sent through Care Everywhere.Pediatric Advisor: Bone; Muscle; or Joint Injury (Bulgarian)documented in this encounter [facility] 02-11-2022 Emergency department Note Patient taken to xray on cart by [employer] at this time, accompanied by patient's mother. [facility] 02-11-2022 Emergency department Note Attending at bedside. [facility] 02-11-2022 Emergency department Triage note Patient brought in by wheelchair. Patient playing lacrosse today and another player fell on top of pt's R leg which gave out. Patient denies feeling /hearing any cracks. Pt R ankle melanie wrapped, able to wiggle toes, denies any numbness/tingling to R toes. [facility] Evaluation note Diagnosis Injury of right lower leg, initial encounter- Primary [facility] Acne vulgaris- Primary Other acne Special screening examination for viral disease Special screening examination for unspecified viral disease Screening for HIV (human immunodeficiency virus) Special screening examination for other specified viral diseases Screening for STD (sexually transmitted disease) Screening examination for venereal disease Vegetarian diet Other specified conditions influencing health status Vitamin D deficiency Unspecified vitamin D deficiency Abnormal laboratory test Other abnormal clinical finding Blood donor Blood donor, other Change in weight Encounter for medical examination to establish care [facility] Anxiety and depression- Primary Dysthymic disorder [facility] Diagnosis Anxiety and depression Dysthymic disorder [facility] Diagnosis Post-concussion headache- Primary Post-traumatic headache, unspecified [facility] Diagnosis Post-concussion headache- Primary Post-traumatic headache, unspecified Dizziness Dizziness and giddiness [facility] Diagnosis Dizziness- Primary Dizziness and giddiness Post-concussion headache Post-traumatic headache, unspecified [facility] Diagnosis Dizziness- Primary Dizziness and giddiness Post-concussion headache Post-traumatic headache, unspecified [facility] Diagnosis Dizziness- Primary Dizziness and giddiness Post-concussion headache Post-traumatic headache, unspecified [facility] Diagnosis Anxiety and depression Dysthymic disorder [facility] Diagnosis Anxiety and depression- Primary Dysthymic disorder [facility] Diagnosis Annual physical exam- Primary Routine general medical examination at a health care facility Anxiety and depression Dysthymic disorder Screening for endocrine, nutritional, metabolic and immunity disorder Screening for other and unspecified endocrine, nutritional, metabolic, and immunity disorders Acne vulgaris Other acne documented in this encounter [facility] Instructions * Patient Instructions* Shayna Humphrey ([facility]) - 10/03/2020 5:31 PM EST Resources for Managing Anxiety During COVID Crisis https://www.virusanxiety.com https://www.cdc.gov/coronavirus/2019-ncov/prepare/eovkyzzr-jlheag-jfddjbt.html https://coronavirus.[place].gov/wps/portal/gov/covid-19/home/resources/resources-fo w-oafxon-oonrrx-bgfm-kse-hjozh-19-pandemic www.[employer]/us/blog/mje-nvomp-mkxhzsxhujdt//dux-mixgkz-ifrxeei irus-anxiety https://www.[employer]/us/blog/hgv-ptsjz-tapoolu//29-lvja-mzlriov cp-bkyp-erqppwmyym-now https://www.[employer]/us/blog/experimentations//0-cltdriacsmx-tq dzmqjlhso-alexbhqjwm-uuehuafph How to Protect Yourself & Others from COVID-19 Wash your hands often ? Wash your hands often with soap and water for at least 20 seconds especially after you have been in a public place, or after blowing your nose, coughing, or sneezing. ? If soap and water are not readily available, use a hand wood hacker that contains at least 60% alcohol. Cover all surfaces of your hands and rub them together until they feel dry. ? Avoid touching your eyes, nose, and mouth with unwashed hands. Avoid close contact ? Inside your home: Avoid close contact with people who are sick. ? If possible, maintain 6 feet between the person who is sick and other household members. ? Outside your home: Put 6 feet of distance between yourself and people who don t live in your household. Cover your mouth and nose with a mask when around others Masks help prevent you from getting or spreading the virus. You could spread COVID-19 to others even if you do not feel sick. Everyone should wear a mask in public settings and when around people who don t live in your household, especially when other social distancing measures are difficult to maintain. Masks should not be placed on young children under age 2, anyone who has trouble breathing, or is unconscious, incapacitated or otherwise unable to remove the mask without assistance. Cover coughs and sneezes ? Always cover your mouth and nose with a tissue when you cough or sneeze or use the inside of yourelbow and do not spit. ? Throw used tissues in the trash. ? Immediately wash your hands with soap and water for at least 20 seconds. Clean and disinfect ? Clean AND disinfect frequently touched surfaces daily. This includes tables, doorknobs, light switches, countertops, handles, desks, phones, keyboards, toilets, faucets, and sinks. Monitor Your Health Daily ? Be alert for symptoms. Watch for fever, cough, shortness of breath, or other symptoms of COVID-19. ? Especially important if you are running essential errands, going into the office or workplace, and in settings where it may be difficult to keep a physical distance of 6 feet. ? Take your temperature if symptoms develop. ? Don t take your temperature within 30 minutes of exercising or after taking medications that could lower your temperature, like acetaminophen. Travel - Skip events that put you in contact with large groups of people (sporting events, concerts, themeparks, etc). - Avoid unnecessary domestic and international travel, including travel through large internationalairports. - If traveling, wipe down your airplane seat (and tray) with a disinfecting wipe. Office Visits - If you have a fever, cough or shortness of breath, or are otherwise concerned you have COVID-19, we ask that you do not come to any [facility] facility without calling your primary care physician or speaking to a provider using a virtual visit using [facility] [employer]. - You will be evaluated to determine if you require being seen in person or if you meet CDC guidelines for testing for COVID-19 based on symptoms, travel and exposures. - If you meet criteria for testing, your [facility] provider or primary care physician will advise how to proceed with testing Immunosuppression - There is no need to stop your immunosuppressive medications preemptively. - If you become sick, please let your doctor know, and discuss with them prior to stopping any medications. - At this point, we have no knowledge that patients on immunosuppressive medications are at higher risk of COVID-19 infection. - People with weakened immune systems are at higher risk of getting severely sick from SARS-CoV-2, the virus that causes COVID-19. - They may also remain infectious for a longer period of time than others with COVID-19, but we cannot confirm this until we learn more about this new virus. Steps You Can Take to Protect Your Health - Continue your regular treatment plan. Don't stop any medications or treatments without talking toyour doctor. - Discuss any concerns about your treatment with your doctor. - Keep your regularly scheduled medical appointments. - Talk to your doctor about steps they are taking to reduce risk of exposure to COVID-19 in the office. - Use telehealth services whenever possible if recommended by your doctor. - Ensure that you are getting necessary tests prescribed by your doctor. - Seek urgent medical care if you are feeling unwell. - Talk to your doctor, insurer, and pharmacist about getting an emergency supply of prescription medications. Make sure you have at least 30 days of prescription medications, zfbg-qan-ojblnmk medicines, and supplies on hand in case you need or want to stay home for several weeks. Talk to your doctor or pharmacist about ways to receive your medications by mail. - Take steps to care for your emotional health. Fear and anxiety about COVID-19 can be overwhelmingand cause strong emotions. It is natural to feel concerned or stressed about COVID-19. - Learn moreabout stress and coping with anxiety here. Call your healthcare provider if stress gets in the way of your daily activities for several days in a row. - If you are feeling overwhelmed with emotions like sadness, depression, or anxiety, or feel like you want to harm yourself or others: ? Call 911 if you feel like you want to harm yourself or others ? Visit the Disaster Distress Helpline [place] [address] ? Visit the National Domestic Violence Hotline or call and TTY Visit the National Suicide Prevention Lifeline or call and TTY or text - Most importantly, don't panic. By following basic prevention measures such as hand hygiene and cover your cough, you are helping to keep yourself and others healthy. Additional information can be found on the CDC and [facility] web sites: https://www.cdc.gov/coronavirus/2019-nCoV/index.html https://[facility].org/coronavirus Beginning Home Isolation Isolation is used to separate people infected with SARS-CoV-2, the virus that causes COVID-19, frompeople who are not infected. People who are in isolation should stay home until it s safe for them to be around others. In the home, anyone sick or infected should separate themselves from others by staying in a specific sick room or area and using a separate bathroom (if available). Isolation or Quarantine: What's the difference? ? Quarantine keeps someone who might have been exposed to the virus away from others. ? Isolation keeps someone who is infected with the virus away from others, even in their home. Who needs to isolate People who have COVID-19 ? People who have symptoms of COVID-19 and are able to recover at home ? People who have no symptoms (are asymptomatic) but have tested positive for infection with SARS-CoV-2 Steps to take Stay home except to get medical care ? Monitor your symptoms. ? Stay in a separate room from other household members, if possible ? Use a separate bathroom, if possible ? Avoid contact with other members of the household and pets ? Don t share personal household items, like cups, towels, and utensils ? Wear a mask when around other people, if you are able to When to seek emergency medical attention Look for emergency warning signs* for COVID-19. If someone is showing any of these signs, seek emergency medical care immediately: ? Trouble breathing ? Persistent pain or pressure in the chest ? New confusion ? Inability to wake or stay awake ? Bluish lips or face *This list is not all possible symptoms. Please call your medical provider for any other symptoms that are severe or concerning to you. Call 911 or call ahead to your local emergency facility: Notify the packerhead machine operator that you are seeking care for someone who has or may have COVID-19. Ending Home Isolation - When you can be around others after you had or likely had COVID-19 I think or know I had COVID-19, and I had symptoms You can be with others after ? At least 10 days since symptoms first appeared and ? At least 24 hours with no fever without fever-reducing medication (acetaminophen, ibuprofen, and others) and ? Other symptoms of COVID-19 are improving (Loss of taste and smell may persist for weeks or monthsafter recovery and need not delay the end of isolation) If you had severe illness from COVID-19 (you were admitted to a hospital and needed oxygen), your healthcare provider may recommend that you stay in isolation for longer than 10 days after your symptoms first appeared (possibly up to 20 days) and you may need to finish your period of isolation at home. I tested positive for COVID-19 but had no symptoms If you continue to have no symptoms, you can be with others after: ? 10 days have passed since the date you had your positive test If you develop symptoms after testing positive, follow the guidance above for I think or know I hadCOVID, and I had symptoms. I had COVID-19 or I tested positive for COVID-19 and I have a weakened immune system If you have a weakened immune system (immunocompromised) due to a health condition or medication, you might need to stay home and isolate longer than 10 days. Talk to your healthcare provider for more information. Your doctor may work with an infectious disease expert at your local health department to determinewhen you can be around others. documented in this encounter History of Present Illness * Shayna Humphrey ([facility]) - 10/03/2020 5:31 PM EST Telemedicine Evaluation for COVID-19 Infection HIPAA secured video was used for evaluation of this patient. Location of patient: [place] is a 15 year old female who presents with 5 days of symptoms that are stable. Tested negative for strep throat earlier this week. Symptoms include: Fever (?100.4F): No (max temp 99.7F) or Chills: No Cough: Yes, mild Shortness of breath: Yes, with exertion or Difficulty breathing: No Fatigue: Yes Muscle aches: Yes Headache: Yes New loss of smell or taste: No Sore throat: Yes Nasal congestion: Yes or Rhinorrhea: No Nausea: Yes or Vomiting: No Diarrhea: No Decreased appetite: No Signs of dehydration (low fluid intake or voiding, dry mucus membranes): No Decreased level of consciousness: No High risk category assessment No high risk factors Exposures: Sick contacts? Yes Contact with anyone confirmed or probable COVID-19 infection in the last 14 days? Yes Family with confirmed COVID-19 infection? No Traveled or resided in an area with sustained or ongoing community transmission of COVID-19? Yes OTC meds/remedies that patient has tried: NSAIDs. She has no history on file for tobacco use. OBJECTIVE VIDEO EXAM (if available) General appearance Alert, oriented, pleasant, in NAD: Yes Ill appearing: No Lethargic appearing: No HEENT Conjunctiva without erythema: Yes Oropharynx: moist mucus membranes, no tonsillar hypertrophy/exudate, uvula midline and pharynx non-erythematous, lips, teeth and gums are without obvious lesion Respiratory Respiratory distress: No Coughing noted: No Audible wheezing noted: No ASSESSMENT/PLAN (Z20.828) Suspected COVID-19 virus infection (primary encounter diagnosis) (Z20.828) Exposure to COVID-19 virus Emily Gonsalez - Meets symptom-based criteria for testing and is low risk. , - Patient scheduled for testing at the time of visit. , - Instructed to isolate pending test results, - Discussed symptom monitoring and supportive care and - Red flags requiring follow up discussed This patient encounter involved the screening or treatment of novel coronavirus infection (COVID-19). ASSESSMENT/PLAN: 1. Suspected COVID-19 virus infection - ICD9: V01.79, ICD10: Z20.828 (primary diagnosis) 2. Exposure to COVID-19 virus - ICD9: V01.79, ICD10: Z20.828 - COVID, FLU A/B + RSV, ROUTINE - ED if difficulty breathing or worsening SOB. - Pt in agreement w/ plan of care. - Red flags for in person care discussed - All questions answered Shayna Humphrey APRN.ANTHONY documented in this encounter Assessments Diagnosis Suspected COVID-19 virus infection- Primary Exposure to COVID-19 virus Advance Directives No Advanced Directives Records FoundDocuments on File Type Date Recorded Patient Handkerchief Folder Expl anation Power of Nursing Home Aide Summary Purpose Family History No Family History Records FoundNo Family History Records FoundNo Family History Records FoundNo Family History Records Found Reason for Referral Specialty Diagnoses / Procedures Referred By Yogi t Referred To Contact Physical Therapy / PHYSICAL THERAPY Diagnoses Post-concussion headache Procedures CONSULT TO PHYSICAL THERAPY PHYSICAL THERAPY EVALUATION HIGH COMPLEX 45 MINS Lasha Witt MD [address] [place] [address] Judah Clay, PT, DPT [address] [place] [address] Referral ID Status Reason Start Date Expiration Date Visits Requested Visits Authorized [id number] Pending Review Auto-Generat ed Referral 4 10/11/2025 1 1 Additional Source Comments Source Comments (unrecognize d section and content) In the event this informatio n is protected by the Federal Confidentiality of Alcohol and Drug Abuse Patient Records regulations: The Federal rules restrict any use of the information to criminally investigate or prosecute any alcohol or drug abuse patient.[facility] event this information is protected by the Federal Confidentiality of Alcohol and Drug Abuse Patient Records regulations: The Federal rules restrict any use of the information to criminally investigate or prosecute any alcohol or drug abuse patient.[facility] the event this information is protected by the Federal Confidentiality of Alcohol and Drug Abuse Patient Records regulations: The Federal rules restrict any use of the information to criminally investigate or prosecute any alcohol or drug abuse patient.[facility] the event this information is protected by the Federal Confidentiality of Alcohol and Drug Abuse Patient Records regulations: The Federal rules restrict any use of the information to criminally investigate or prosecute any alcohol or drug abuse patient.[facility] the event this information is protected by the Federal Confidentiality of Alcohol and Drug Abuse Patient Records regulations: The Federal rules restrict any use of the information to criminally investigate or prosecute any alcohol or drug abuse patient.[facility] the event this information is protected by the Federal Confidentiality of Alcohol and Drug Abuse Patient Records regulations: The Federal rules restrict any use of the information to criminally investigate or prosecute any alcohol or drug abuse patient.[facility] the event this information is protected by the Federal Confidentiality of Alcohol and Drug Abuse Patient Records regulations: The Federal rules restrict any use of the information to criminally investigate or prosecute any alcohol or drug abuse patient.[facility] the event this information is protected by the Federal Confidentiality of Alcohol and Drug Abuse Patient Records regulations: The Federal rules restrict any use of the information to criminally investigate or prosecute any alcohol or drug abuse patient.[facility] the event this information is protected by the Federal Confidentiality of Alcohol and Drug Abuse Patient Records regulations: The Federal rules restrict any use of the information to criminally investigate or prosecute any alcohol or drug abuse patient.[facility] HospitalIn the event this information is protected by the Federal Confidentiality of Alcohol and Drug Abuse Patient Records regulations: The Federal rules restrict any use of the information to criminally investigate or prosecute any alcohol or drug abuse patient.[facility] HospitalIn the event this information is protected by the Federal Confidentiality of Alcohol and Drug Abuse Patient Records regulations: The Federal rules restrict any use of the information to criminally investigate or prosecute any alcohol or drug abuse patient.[facility] HospitalIn the event this information is protected by the Federal Confidentiality of Alcohol and Drug Abuse Patient Records regulations: The Federal rules restrict any use of the information to criminally investigate or prosecute any alcohol or drug abuse patient.[facility] HospitalIn the event this information is protected by the Federal Confidentiality of Alcohol and Drug Abuse Patient Records regulations: The Federal rules restrict any use of the information to criminally investigate or prosecute any alcohol or drug abuse patient.[facility] HospitalIn the event this information is protected by the Federal Confidentiality of Alcohol and Drug Abuse Patient Records regulations: The Federal rules restrict any use of the information to criminally investigate or prosecute any alcohol or drug abuse patient.[facility] HospitalIn the event this information is protected by the Federal Confidentiality of Alcohol and Drug Abuse Patient Records regulations: The Federal rules restrict any use of the information to criminally investigate or prosecute any alcohol or drug abuse patient.[facility] HospitalIn the event this information is protected by the Federal Confidentiality of Alcohol and Drug Abuse Patient Records regulations: The Federal rules restrict any use of the information to criminally investigate or prosecute any alcohol or drug abuse patient.[facility] HospitalIn the event this information is protected by the Federal Confidentiality of Alcohol and Drug Abuse Patient Records regulations: The Federal rules restrict any use of the information to criminally investigate or prosecute any alcohol or drug abuse patient.[facility] HospitalIn the event this information is protected by the Federal Confidentiality of Alcohol and Drug Abuse Patient Records regulations: The Federal rules restrict any use of the information to criminally investigate or prosecute any alcohol or drug abuse patient.[facility] Reason for Visit (unrecogniz ed section and content) Reason Comments Physical Therapy Specialty Diagnoses / Procedures Referred By Yogi connor Referred To Contact Physical Therapy / PHYSICAL THERAPY Diagnoses Post-concussion headache Procedures CONSULT TO PHYSICAL THERAPY PHYSICAL THERAPY EVALUATION HIGH COMPLEX 45 MINS Lasha Witt MD [address] [place] [address] Judah Clay PT, DPT [address] [place] [address] Referral ID Status Reason Start Date Expiration Date Visits Requested Visits Authorized [id number] Authorized Auto-Generat ed Referral 12/31/2023 10/24/2024 99 99 Reason Comments Covid19 Concern Reason Comments Ankle Pain right Reason Comments Establish Care Reason Comments Establish Care Pt presents today to Establish Care. Pt would also like to discuss Anxiety and depression with Dr. Reason Comments Anxiety Reason Comments Headache Pt presents for Head aches, pt was playing Lacrosse in mid August and was hit in the head with a ball and had a mild concussion and that is when the headaches started. Pt states the [employer] wanted pt to do eye and ear exercises and when she did that it made it worse. Pt states when she started exercising it was getting worse, pt states her production trainer wanted her to start jogging and so she went 15 min. Came back and passed out. Reason Comments PT Eval Specialty Diagnoses / Procedures Referred By Yogi t Referred To Contact Physical Therapy / PHYSICAL THERAPY Diagnoses Post-traumatic headache, unspecified, not intractable Procedures THERAPEUTIC EXERCISES RE, EA 15 MIN. 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 Reason Comments Wellness Pt presents for Zuleika al Wellness Visit , pt is fasting for labs. 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 2046 (Given - Provid er: Aleida Albright RN) Care Teams (unrecognized sec tion and content) Director Title Relationship Specialty Start Date End Date Antelmo Juan MD [address] [facility] [address] [place] [address] PCP - General Family Medicine 03/19/20 Director Title Relationship Specialty Start Date End Date Cale Jay MD [address] [place] [address] [address] [place] [address] PCP - General Internal Medicine 03/07/24 Director Title Relationship Specialty Start Date End Date Lasha Witt MD [address] [place] [id number] PCP - General Family Medicine 07/26/24 Director Title Relationship Specialty Start Date End Date Lasha Witt MD [address] [place] [phone] PCP - General Family Medicine 07/26/24 Director Title Relationship Specialty Start Date End Date Lasha Witt MD [address] [place] [phone] PCP - General Family Medicine 07/26/24 Director Title Relationship Specialty Start Date End Date Lasha Witt MD [address] [place] [phone] PCP - General Family Medicine 07/26/24 Director Title Relationship Specialty Start Date End Date Lasha Witt MD [address] [place] [address] PCP - General Family Medicine 07/26/24 Director Title Relationship Specialty Start Date End Date Lasha Witt MD [address] [place] [phone] PCP - General Family Medicine 07/26/24 Director Title Relationship Specialty Start Date End Date Lasha Witt MD [address] [place] [id number] PCP - General Family Medicine 07/26/24 Director Title Relationship Specialty Start Date End Date Lasha Witt MD [address] [place] [id number] PCP - General Family Medicine 07/26/24 Director Title Relationship Specialty Start Date End Date Lasha Witt MD [address] [place] [phone] PCP - General Family Medicine 07/26/24 Director Title Relationship Specialty Start Date End Date Lasha Witt MD [address] [place] [phone] PCP - General Family Medicine 07/26/24 Director Title Relationship Specialty Start Date End Date Lasha Witt MD [address] [place] [phone] PCP - General Family Medicine 07/26/24 INFORMATION SOURCE (unrecogn ized section and content) DATE CREATED AUTHOR 04/13/2024 [facility] DATE CREATED AUTHOR AUTHOR'S ORGANIZ ATION 03/04/2025 [facility] DATE CREATED AUTHOR AUTHOR'S ORGANIZ ATION 08/04/2025 [facility] DATE CREATED AUTHOR AUTHOR'S ORGANIZ ATION 08/05/2025 [facility] nter FOR RECORDS PERTAINING TO PATIENTS WHO ARE OR HAVE BEEN ENROLLED IN A CHEMICAL DEPENDENCY/SUBSTANCEABUSE PROGRAM, SOME INFORMATION MAY BE OMITTED. This clinical summary was aggregated from multiple sources. Caution should be exercised in using it in the provision of clinical care. This summary normalizes information from multiple sources, and as a consequence, information in this document may materially change the coding, format and clinical context of patient data. In addition, data may be omitted in some cases. CLINICAL DECISIONS SHOULD BE BASED ON THE PRIMARY CLINICAL RECORDS. [employer] [facility]. provides no warranty or guarantee of the accuracy or completeness of information in this document.
[2025-08-12 11:50] VITALS: BP 104/80; PULSE 79; O2SAT 100
[2025-08-12 12:00] VITALS: BP 107/88; PULSE 63; O2SAT 100
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
--- NOTE | 2025-08-12 12:01 | CT_ITS ---
PROCEDURE: BRAIN/HEAD WITHOUT CONTRAST 08/12/2025 REASON FOR EXAM: HEAD INJURY TECHNIQUE: Procedure Code: CTBR Modality: CT Procedure: BRAIN/HEAD WITHOUT CONTRAST Coronal and Sagittal reconstruction series were provided. One or more dose reduction techniques were used (e.g., Automated exposure control, adjustment of the mA and/or kV according to patient size, use of iterative reconstruction technique. RADIATION DOSE SUMMARY: CTDlvol: - mGy DLP: - mGycm COMPARISON: None. FINDINGS: Brain: Normal CSF Spaces: Normal Sinuses/Mastoids: Clear at visualized levels Bones: No acute bony abnormalities. CT/Brain/Head without Contrast IMPRESSION: Normal CT head without acute intracranial abnormalities. Reading Location: [id number]
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
[2025-08-12 12:15] VITALS: BP 107/88; PULSE 63; O2SAT 100
[2025-08-12 13:00] VITALS: BP 115/71; PULSE 63; RESP 16; O2SAT 99
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
[2025-08-12 13:29] VITALS: BP 115/71; PULSE 63; RESP 16; TEMP 36.6; O2SAT 99
== END 2025-08-12 13:55 | disposition home or self-care (01) ==
PROVIDERS: Emergency Provider Surgery; PCP Emergency Medicine; Visit Provider Surgery
DX: S16.1XXA Strain of muscle, fascia and tendon at neck level, initial encounter (principal); V89.2XXA Person injured in unspecified motor-vehicle accident, traffic, initial encounter
CPT/HCPCS: 70450; 72125; 96374; 96375; 99285; A4216; J2405